=== PATIENT | male | born 1935 | race Caucasian/White ===

== ENCOUNTER 2021-12-17 13:36 | Outpatient (CLI) | payer MEDICARE, OTHER, SELFPAY ==
--- NOTE | 2021-12-17 13:46 | XR_ITS ---
WS: [id number] Right hip, AP and frog-leg views, 12/17/2021 Clinical Data: CHRONIC HIP PAIN RIGHT Comparison: None. Findings: No fractures or dislocations are seen. There is narrowing, sclerosis and cyst formation of the right hip joint.The adjacent right pelvis is unremarkable. There is a fecal impaction. The soft tissues are normal. XR/XR hip RT 2-3V wo/w pel* [id number] Impression: Severe osteoarthritis of the right hip. Tonnis classification: grade 3: large cysts in femoral head/acetabulum or joint space obliteration/severe narrowing or severe femoral head deformity vs AVN
== END 2021-12-17 13:37 | disposition home or self-care (01) ==
PROVIDERS: PCP Nurse Practitioner; Visit Provider Nurse Practitioner
DX: M16.11 Unilateral primary osteoarthritis, right hip (principal)
CPT/HCPCS: 73502

== ENCOUNTER → 2022-02-17 10:49 | Outpatient (BNVA) | payer MEDICARE, OTHER, SELFPAY | PROVIDERS: PCP Nurse Practitioner; Referring Provider Nurse Practitioner Family; Visit Provider Specialist | DX: M16.11 Unilateral primary osteoarthritis, right hip (principal); M25.551 Pain in right hip | CPT/HCPCS: 73502; 99204 ==

== ENCOUNTER 2022-04-21 09:37 | Emergency (ER) | payer MEDICARE, OTHER, SELFPAY ==
--- NOTE | 2022-04-21 09:42 | XR_ITS ---
WS: [id number] Exam: XR chest 1V portable [id number] Date/Time of Exam: 04/21/2022 9:46 AM Reason For Exam: dyspnea/cough Comparison 07/30/2019. There is mild interstitial infiltrate in the upper lobe of the right lung. Remaining lung iraheta are clear. There is cardiac enlargement unchanged. 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 A car diac pacer superimposes the left chest. The lungs are fully inflated. Mild prominence of the superior mediastinum unchanged. Moderate DJD of the left shoulder. XR/XR chest 1V portable [id number] IMPRESSION: 1. Interstitial infiltrate in the right upper lobe suspicious for pneumonia. 2. Cardiac enlargement unchanged.
[2022-04-21 09:47] VITALS: BP 134/80; PULSE 75; RESP 22; TEMP 35.7; O2SAT 98; BMI 25.8
--- NOTE | 2022-04-21 10:07 | ECG_ITS ---
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 Measurements Intervals [place] Rate: 75 P: MT: QRS: 234 QRSD: 196 T: 33 QT: 449 QTc: 502 Interpretive Statements ELECTRONIC VENTRICULAR PACEMAKER ABNORMAL RHYTHM ECG No previous ECG available for comparison Electronically Signed On 04-21-2022 16:29:42 CDT by Luis Felipe Hollingsworth M.D. [id number]
[2022-04-21 10:14] LABS: Basophils # 0.1 10^3/uL (0.0-0.1); Basophils % 0.6 %; Eosinophils # 0.3 10^3/uL (0.0-0.8); Eosinophils % 3.1 %; Hematocrit 38.6 % (42.0-52.0); Hemoglobin 12.3 g/dL (11.7-16.6); Lymphocytes # 1.5 10^3/uL (0.8-4.8); Lymphocytes % 17.2 %; Mean Corpuscular HGB Conc 31.9 g/dL (30.0-36.0); Mean Corpuscular Hemoglobin 30.3 pg (28.0-34.0); Mean Corpuscular Volume 95.1 fl (80-94); Mean Platelet Volume 10.2 fL (7.4-10.4); Monocytes # 0.8 10^3/uL (0.2-0.9); Monocytes % 9.5 %; Neutrophils # 5.91 10^3/uL (1.8-7.7); Neutrophils % 68.7 %; Nucleated Red Blood Cells % 0 %; Platelet Count 283 10^3/cmm (130-400); Red Blood Count 4.06 10^6/uL (4.1-5.3); Red Cell Distribution Width 15.5 % (12.1-15.1); White Blood Count 8.6 10^3/uL (4.0-10.0)
--- NOTE | 2022-04-21 10:26 | W.ED.SOB ---
HPI - SOB/Dyspnea General: Chief Complaint: Shortness of Breath/Dyspnea Stated Complaint: SOB Time Seen by Provider: 04/21/22 09:42 Source: patient Mode of arrival: ambulatory Limitations: no limitations History of Present Illness: HPI Narrative: 86-year-old male presents emergency room with complaint of cough and shortness of breath. 1 week ago he tested positive on a home antigen kit for COVID. He has not had any productive cough. He has a history of some congestive heart failure which is chronic. He has not noticed any increasing orthopnea. Low-grade fever diarrhea have mostly resolved his only persistent symptom is shortness of breath and cough. No anosmia. He has previously been vaccinated and had boosters. MD elicited complaint: shortness of breath and cough Pertinent past history: congestive heart failure Onset (ago): day(s) (7) Timing: constant Severity: mild Exacerbating factors: exertion and coughing Relieving factors: rest Known history of: congestive heart failure Associated symptoms: Reports cough; Deny abdominal pain, chest congestion, chest pain, diaphoresis, dizziness, extremity pain, fever(s), hemoptysis, lightheadedness, myalgias, nausea, orthopnea, palpitations, paresthesias, polydipsia, polyuria, rash, sense of impending doom, syncope or vomiting Treatment prior to arrival: none Review of Systems Const: Denies: fever(s), chills, fatigue, malaise or diaphoresis ENMT: Denies: throat pain, ear or mastoid pain, nasal discharge or nasal congestion Card: Denies: chest pain, palpitations, lightheadedness, syncope or orthopnea Resp: Reports: dyspnea, non-productive cough and wheezing; Denies: productive cough, hemoptysis or chest congestion GI: Denies: abdominal pain, nausea or vomiting : Denies: flank pain, dysuria, urinary frequency or urinary urgency Musc: Denies: extremity pain Skin/Breast: Denies: rash or pruritus Neuro: Denies: dizziness Endo: Denies: polyuria or polydipsia PFS ED PFSH: Social History Smoking and tobacco status: never smoked Second hand smoke exposure: No Smoking risk assessment/counseling performed?: No Alcohol intake: never Adopted: No Caregiver/support person: Yes Lives independently: No Household members: spouse Housing: House Marital status: Number of children: 3 Number of grandchildren: 5 Highest education level completed: High School Graduate service: No Current occupational status: retired Current occupational exposures/hazards: No Pets and animals: Yes History of recent travel: No Sexually active: Yes Current gender identity: Male Special felicia needs: No Agree to transfusion: Yes Physical Exam Const: COMMON NORMALS: no acute distress GENERAL APPEARANCE: cooperative and comfortable ORIENTATION/CONSCIOUSNESS: Yes awake HENMT: COMMON NORMALS: normocephalic and atraumatic HEAD & SCALP: normocephalic and atraumatic Eye: COMMON NORMALS: Equal, round and reactive pupils present, EOMs intact bilaterally, conjunctivae normal and no scleral icterus CONJUNCTIVA: Yes conjunctivae normal PUPIL: Yes Equal, round and reactive pupils present Neck/C-Spine: COMMON NORMALS: full ROM, no lymphadenopathy, supple and no JVD Lymph: LYMPHATIC: no lymphadenopathy noted and no lymphedema noted Resp: COMMON NORMALS: normal respiratory effort, No retractions and No use of accessory muscles AUSCULTATION: wheezes expiratory wheezes (Mild) Cardio: COMMON NORMALS: no JVD, regular rate, regular rhythm and No murmurs present (Cardio) RATE: regular rate RHYTHM: regular rhythm GI: COMMON NORMALS: Soft to palpation and No hepatosplenomegaly present AUSCULTATION: Yes normoactive bowel sounds PALPATION: Yes Soft to palpation, No Tenderness to palpation present (GI), No Guarding due to palpation present (GI) and Yes No hepatosplenomegaly present Extremity: COMMON NORMALS: normal to inspection, capillary refill normal, no clubbing, cyanosis or edema, no calf tenderness and no pedal edema Skin: COMMON NORMALS: no rashes or lesions noted GENERAL SKIN EXAM: no rashes or lesions noted Course Vital Signs: Vital signs: Vital Signs Temperature 96.3 F L 04/21/22 09:47 Pulse Rate 76 04/21/22 13:47 Respiratory Rate 16 04/21/22 13:47 Blood Pressure 142/93 04/21/22 13:47 Pulse Oximetry 96 04/21/22 13:47 Oxygen Delivery Me thod 04/21/22 12:55 MDM - SOB/Dyspnea Medical Decision Making Lung sounds clear minimal wheezing at best. He did test positive for COVID 7 days ago which with some time. Where is most likely to have symptoms although they are very mild at this point we did note an elevated troponin however the second troponin was decreased I think it is from heart strain from congestive heart failure which is chronic he does not appear to be acutely fluid overloaded at this time. We will go ahead and discharge him home on a course of dexamethasone continue to use albuterol monitor oxygen saturations at home. Recheck if there is any worsening. Discussed the patient is outside the window for pack COVID at this point. Medical Records I reviewed the patient's medical records. Lab Data I reviewed the patient's lab results. : 04/21/22 10:00 04/21/22 10:00 Labs/Radiology: Radiology Impressions Chest X-Ray 04/21/22 09:42 IMPRESSION: 1. Interstitial infiltrate in the right upper lobe suspicious for pneumonia. 2. Cardiac enlargement unchanged. Laboratory Results WBC 8.6 10^3/uL (4.0-10.0) 04/21/22 10:00 RBC 4.06 10^6/uL (4.1-5.3) L 04/21/22 10:00 Hgb 12.3 g/dL (11.7-16.6) 04/21/22 10:00 Hct 38.6 % (42.0-52.0) L 04/21/22 10:00 MCV 95.1 fl (80-94) H 04/21/22 10:00 MCH 30.3 pg (28.0-34.0) 04/21/22 10:00 MCHC 31.9 g/dL (30.0-36.0) 04/21/22 10:00 RDW 15.5 % (12.1-15.1) H 04/21/22 10:00 Plt Count 283 10^3/cmm (130-400) 04/21/22 10:00 MPV 10.2 fL (7.4-10.4) 04/21/22 10:00 Neut % (Auto) 68.7 % 04/21/22 10:00 Lymph % (Auto) 17.2 % 04/21/22 10:00 [place] % (Auto) 9.5 % 04/21/22 10:00 Eos % (Auto) 3.1 % 04/21/22 10:00 Baso % (Auto) 0.6 % 04/21/22 10:00 Neut # (Auto) 5.91 10^3/uL (1.8-7.7) 04/21/22 10:00 Lymph # (Auto) 1.5 10^3/uL (0.8-4.8) 04/21/22 10:00 [place] # (Auto) 0.8 10^3/uL (0.2-0.9) 04/21/22 10:00 Eos # (Auto) 0.3 10^3/uL (0.0-0.8) 04/21/22 10:00 Baso # (Auto) 0.1 10^3/uL (0.0-0.1) 04/21/22 10:00 Nucleated RBC % (auto) 0 % 04/21/22 10:00 Nucleated RBCs # 0.0 /100WBC 04/21/22 10:00 Sodium 135 mmol/L (136-145) L 04/21/22 10:00 Potassium 4.5 mmol/L (3.5-5.1) 04/21/22 10:00 Chloride 97 mmol/L (98-107) L 04/21/22 10:00 Carbon Dioxide 29 mmol/L (22-29) 04/21/22 10:00 Anion Gap 13.5 (5-19) 04/21/22 10:00 BUN 18 mg/dL (8-23) 04/21/22 10:00 Creatinine 1.0 mg/dL (0.7-1.2) 04/21/22 10:00 GFR Calculation Not Reportable 04/21/22 10:00 Glucose 87 mg/dL (65-115) 04/21/22 10:00 Calculated Osmolality 281 mOsm/kg (285-295) L 04/21/22 10:00 Calcium 8.7 mg/dL (8.5-10.5) 04/21/22 10:00 Total Bilirubin 1.2 mg/dL (0.15-1.2) 04/21/22 10:00 AST 24 U/L (0-40) 04/21/22 10:00 ALT 40 U/L (0-41) 04/21/22 10:00 Alkaline Phosphatase 79 IU/L (40-130) 04/21/22 10:00 Troponin T Baseline 96 ng/L (0-15) H 04/21/22 10:00 Troponin T 120 Minute 87.01 ng/L (0-15) H 04/21/22 11:59 Delta Troponin T -8.99 ABS# (0-10) L 04/21/22 11:59 NT-Pro-B Natriuret Pep 5144 pg/mL (0-450) H 04/21/22 11:59 Total Protein 6.9 g/dL (6.6-8.7) 04/21/22 10:00 Albumin 3.8 g/dL (3.5-5.2) 04/21/22 10:00 Globulin 3.1 g/dL (1.3-4.6) 04/21/22 10:00 Lipase 23 U/L (13-60) 04/21/22 10:00 Discharge Plan Discharge Patient Disposition: Home Clinical Impression: COVID-19 Condition: Stable Prescriptions: New dexamethasone 6 mg tablet 6 mg PO DAILY Qty: 7 0RF No Action warfarin 5 mg tablet See Rx Instructions .ROUTE .COMPLEX Rx Instructions: 5 mg orally TUE,TUE,,TUE AND 2.5MG ON & TUE digoxin 125 mcg (0.125 mg) tablet 125 mcg PO DAILY lovastatin 40 mg tablet 40 mg PO DAILY levothyroxine 125 mcg capsule 125 mcg PO DAILY amiodarone 200 mg tablet See Rx Instructions .ROUTE .COMPLEX Rx Instructions: 200 mg orally TUESDAY-TUESDAY omeprazole 40 mg capsule,delayed release(DR/EC) 40 mg PO DAILY tramadol 50 mg tablet 50 mg PO DAILY albuterol sulfate 2.5 mg /3 mL (0.083 %) Solution For Nebulization 2.5 mg INHALATION Q4H PRN (Reason: Shortness Of Breath) furosemide 20 mg Tablet 20 mg PO DAILY metoprolol succinate 25 mg tablet extended release 24 hr 25 mg PO DAILY Vitamin D3 25 mcg (1,000 unit) Capsule 25 mcg PO DAILY vitamin G79-abgfq acid 2,500-400 mcg Tablet,Disintegrating 1 tab PO DAILY Discharge Orders: Discharge ED (Routine); Ordered 04/21/22 Ordered By: Rahul Duran Referrals: Kenia Harris, VICE PRESIDENT OF INSTRUCTION [Primary Care Provider] - Discharge Diet: Usual diet Discharge Activity: Limit activity as instructed Activity Restrictions/Additional Instructions: Return to the ER if you have significant worsening in your breathing. Use albuterol regularly for symptoms of wheezing and shortness of breath. Coding Level of Care Code ED Probate Clerk for Alexandria Burns
[2022-04-21 10:41] LABS: Troponin(5th) Baseline 96 ng/L (0-15)
[2022-04-21 10:43] LABS: Alanine Aminotransferase 40 U/L (0-41); Albumin Level 3.8 g/dL (3.5-5.2); Alkaline Phosphatase 79 IU/L (40-130); Anion Gap 13.5 (5-19); Aspartate Amino Transferase 24 U/L (0-40); Blood Urea Nitrogen 18 mg/dL (8-23); Calcium 8.7 mg/dL (8.5-10.5); Carbon Dioxide 29 mmol/L (22-29); Chloride 97 mmol/L (98-107); Globulin 3.1 g/dL (1.3-4.6); Glucose 87 mg/dL (65-115); Lipase 23 U/L (13-60); Osmolality Calculated 281 mOsm/kg (285-295); Potassium 4.5 mmol/L (3.5-5.1); Sodium 135 mmol/L (136-145); Total Bilirubin 1.2 mg/dL (0.15-1.2); Total Protein 6.9 g/dL (6.6-8.7)
[2022-04-21 11:23] VITALS: BP 132/75; PULSE 78; RESP 18; O2SAT 96
--- NOTE | 2022-04-21 11:43 | ECG_ITS ---
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 Measurements Intervals [place] Rate: 75 P: SD: QRS: 261 QRSD: 200 T: 75 QT: 456 QTc: 510 Interpretive Statements ELECTRONIC VENTRICULAR PACEMAKER ABNORMAL RHYTHM ECG Compared to ECG 04/21/2022 10:07:40 No significant changes Electronically Signed On 04-21-2022 16:34:05 CDT by Luis Felipe Hollingsworth M.D. [id number]
[2022-04-21 12:38] LABS: Troponin 5 2HR 87.01 ng/L (0-15)
[2022-04-21 12:46] LABS: NT Pro B Type Natriuretic Pept 5144 pg/mL (0-450)
[2022-04-21 12:55] VITALS: PULSE 80; RESP 18; O2SAT 94
[2022-04-21 13:34] VITALS: O2SAT 94; O2SAT 97
[2022-04-21 13:47] VITALS: BP 142/93; PULSE 76; RESP 16; O2SAT 96
== END 2022-04-21 13:48 | disposition home or self-care (01) ==
PROVIDERS: Emergency Provider Family Medicine; PCP Nurse Practitioner
DX: U07.1 COVID-19 (principal); Z79.01 Long term (current) use of anticoagulants
CPT/HCPCS: 36415; 71045; 80053; 83690; 83880; 84484; 85025; 93005; 99285

== ENCOUNTER → 2022-05-03 12:51 | Outpatient (BNVA) | payer MEDICARE, OTHER, SELFPAY | PROVIDERS: PCP Nurse Practitioner; Visit Provider Specialist | DX: M16.11 Unilateral primary osteoarthritis, right hip (principal); U07.1 COVID-19 | CPT/HCPCS: 73502; 99214 ==

== ENCOUNTER 2022-05-05 09:57 | Emergency (ER) | payer MEDICARE, OTHER, SELFPAY ==
[2022-05-05 10:26] VITALS: BP 125/74; PULSE 80; RESP 16; TEMP 36.8; O2SAT 98; BMI 25.8
--- NOTE | 2022-05-05 10:40 | ED_ITS ---
HPI - General Adult General: Chief complaint: General Medical Stated complaint: Abnormal Labs Time Seen by Provider: 05/05/22 10:38 History of Present Illness: Patient is an 86-year-old male who comes to the ED to have his INR checked. Patient says he was at his primary care clinic y esterday and had his INR checked and they told him it was a little bit off but did not tell him his INR value. He is unsure of what his INR level as it would like to get it checked. Associated symptoms: Deny chest pain, dyspnea, headache(s), nausea, rash, palpit ations or vomiting Review of Systems Const: Denies: fever(s), chills or fatigue Eyes: Denies: change in vision or eye discomfort ENMT: Denies: throat pain, odynophagia, nasal discharge or nasal congestion Card: Denies: chest pain, palpitations, edema, swelling of feet/ankles, dyspnea on exertion or orthopnea Resp: Denies: dyspnea, productive cough or non-productive cough GI: Denies: abdominal pain, nausea, vomiting, diarrhea, constipation or hematochezia : Denies: flank pain, difficulty urinating, dysuria or hematuria Musc: Denies: neck pain, back pain or extremity swelling Skin/Breast: Denies: rash or new lesions Neuro: Denies: headache(s), numbness in extremities or weakness in extremities PFS ED PFSH: Medical History No pertinent family history Pacemaker Social History Smoking and tobacco status: never smoked Second hand smoke exposure: No Smoking risk assessment/counseling performed?: No Alcohol intake: never Adopted: No Caregiver/support person: Yes Lives independently: No Household members: spouse Housing: House Marital status: Number of children: 3 Number of grandchildren: 5 Highest education level completed: High School Graduate service: No Current occupational status: retired Current occupational exposures/hazards: No Pets and animals: Yes History of recent travel: No Sexually active: Yes Current gender identity: Male Special felicia needs: No Agree to transfusion: Yes Physical Exam Const: COMMON NORMALS: no acute distress and patient oriented x3 GENERAL AP PEARANCE: cooperative HENMT: COMMON NORMALS: normocephalic HEAD & SCALP: normocephalic MOUTH: Normal oral and palatal mucosa present THROAT: posterior oropharynx normal and uvula midline Neck/C-Spine: COMMON NORMALS: supple GENERAL: Yes normal visual inspection Resp: COMMON NORMALS: normal respiratory effort, No retractions, No use of accessory muscles and clear to auscultation bilaterally AUSCULTATION: clear to auscultation bilaterally Cardio: COMMON NORMALS: regular rate, regular rhythm, S1 normal heart sound present, S2 normal heart sound present, No gallops present (Cardio), No clicks present (Cardio), No murmurs present (Cardio) and Peripheral pulses 2+ throughout RATE: regular rate RHYTHM: regular rhythm HEART SOUNDS: S1 normal heart sound present and S2 normal heart sound present PERIPHERAL PULSES: Peripheral pulses 2+ throughout GI: COMMON NORMALS: Normal to inspection, nondistended, normoactive bowel sounds present, Soft to palpation, non-tender and no masses PALPATION: Yes Soft to palpation : COMMON NORMALS: Yes no CVA tenderness BLADDER/KIDNEY EXAM: Yes no CVA tenderness Back/Pelvis: COMMON NORMALS: no CVA tenderness Extremity: COMMON NORMALS: normal to inspection Neuro: COMMON NORMALS: patient oriented x3 GAIT: Yes Normal gait present Skin: GENERAL SKIN EXAM: dry skin Course Vital Signs: Vital signs: Vital Signs Temperature 98.3 F 05/05/22 10:26 Pulse Rate 80 05/05/22 10:26 Respiratory Rate 16 05/05/22 10:26 Blood Pressure 125/74 05/05/22 10:26 Pulse Oximetry 98 05/05/22 10:26 Oxygen Delivery Me thod 05/05/22 10:26 [facility] - General Adult Medical Decision Making Patient is an 86-year-old male comes to the ED to have his INR level checked. He denies any other symptoms. Vitals are stable and exam was benign. CBC was unremarkable patient's INR level was 6.39. We had contacted his clinching machine operator who prescribes his warfarin and faxed over the lab results. He has an appointment with his clinching machine operator tomorrow. Patient was mad about waiting and wanted to leave. I told him I was waiting on his clinching machine operator to let me know what he wants to do with patient. Patient insisted on signing out AMA and says he will see his clinching machine operator tomorrow. I explained to patient the risk of him signing out AMA. He refused any vitamin K medication. Patient signed AMA form and was discharged home. I told him to hold his warfarin for today and to not take another dose of warfarin till he sees his clinching machine operator tomorrow. the clinching machine operator eventually called [facility] and said patient can discharge home and that he needs to hold his warfarin dose until he sees patient tomorrow. Lab Data I reviewed the patient's lab results. : 05/05/22 10:54 Laboratory Results WBC 8.0 10^3/uL (4.0-10.0) 05/05/22 10:54 RBC 4.17 10^6/uL (4.1-5.3) 05/05/22 10:54 Hgb 12.7 g/dL (11.7-16.6) 05/05/22 10:54 Hct 39.4 % (42.0-52.0) L 05/05/22 10:54 MCV 94.5 fl (80-94) H 05/05/22 10:54 MCH 30.5 pg (28.0-34.0) 05/05/22 10:54 MCHC 32.2 g/dL (30.0-36.0) 05/05/22 10:54 RDW 15.8 % (12.1-15.1) H 05/05/22 10:54 Plt Count 197 10^3/cmm (130-400) 05/05/22 10:54 MPV 10.3 fL (7.4-10.4) 05/05/22 10:54 Neut % (Auto) 68.6 % 05/05/22 10:54 Lymph % (Auto) 20.3 % 05/05/22 10:54 [place] % (Auto) 9.3 % 05/05/22 10:54 Eos % (Auto) 1.3 % 05/05/22 10:54 Baso % (Auto) 0.1 % 05/05/22 10:54 Neut # (Auto) 5.47 10^3/uL (1.8-7.7) 05/05/22 10:54 Lymph # (Auto) 1.6 10^3/uL (0.8-4.8) 05/05/22 10:54 [place] # (Auto) 0.7 10^3/uL (0.2-0.9) 05/05/22 10:54 Eos # (Auto) 0.1 10^3/uL (0.0-0.8) 05/05/22 10:54 Baso # (Auto) 0.0 10^3/uL (0.0-0.1) 05/05/22 10:54 Nucleated RBC % (auto) 0 % 05/05/22 10:54 Nucleated RBCs # 0.0 /100WBC 05/05/22 10:54 PT 56.20 SECONDS (12.1-14.9) H 05/05/22 10:54 INR 6.39 (0.8-1.2) H* 05/05/22 10:54 Discharge Plan Discharge Patient Disposition: Left Against Medical Advice Clinical Impression: Elevated INR Condition: Stable Prescriptions: No Action warfarin 5 mg tablet See Rx Instructions .ROUTE .COMPLEX Rx Instructions: 5 mg orally SUN,TUE,,TUE AND 2.5MG ON & TUE digoxin 125 mcg (0.125 mg) tablet 125 mcg PO DAILY lovastatin 40 mg tablet 40 mg PO DAILY levothyroxine 125 mcg capsule 125 mcg PO DAILY amiodarone 200 mg tablet See Rx Instructions .ROUTE .COMPLEX Rx Instructions: 200 mg orally TUESDAY-TUESDAY omeprazole 40 mg capsule,delayed release(DR/EC) 40 mg PO DAILY tramadol 50 mg tablet 50 mg PO DAILY albuterol sulfate 2.5 mg /3 mL (0.083 %) Solution For Nebulization 2.5 mg INHALATION Q4H PRN (Reason: Shortness Of Breath) furosemide 20 mg Tablet 20 mg PO DAILY metoprolol succinate 25 mg tablet extended release 24 hr 25 mg PO DAILY Vitamin D3 25 mcg (1,000 unit) Capsule 25 mcg PO DAILY vitamin L91-serlh acid 2,500-400 mcg Tablet,Disintegrating 1 tab PO DAILY dexamethasone 6 mg tablet 6 mg PO DAILY Qty: 7 0RF Referrals: Kenia Harris APN [Primary Care Provider] - Discharge Diet: Regular Discharge Activity: Increase activity as tolerated Patient Instructions: Elevated INR (ED) Activity Restrictions/Additional Instructions: Follow-up with your doctor at your scheduled appointment tomorrow. Do not take any more warfarin today and do not continue taking warfarin until you've been advised and seen by your doctor. take medications as prescribed. Return to the ER or your medical provider if condition worsens. Please read and understand discharge instructions. Thank you for choosing [facility] for your healthcare needs today. Please realize this is an emergency room and that we are providing you with a medical screening exam and this may not be complete and all inclusive of all the testing and or work up that you may need to determine your ailment or severity of your illness. It is very important that you follow up as instructed or that you return to the Emergency Department should you have concerns or if your condition changes or worsens in any way. Coding Level of Care Code ED Milk Pasteurizer for Alexandria Burns Exam Comprehensive
[2022-05-05 11:03] LABS: Basophils % 0.1 %; Eosinophils # 0.1 10^3/uL (0.0-0.8); Eosinophils % 1.3 %; Hematocrit 39.4 % (42.0-52.0); Hemoglobin 12.7 g/dL (11.7-16.6); Lymphocytes # 1.6 10^3/uL (0.8-4.8); Lymphocytes % 20.3 %; Mean Corpuscular HGB Conc 32.2 g/dL (30.0-36.0); Mean Corpuscular Hemoglobin 30.5 pg (28.0-34.0); Mean Corpuscular Volume 94.5 fl (80-94); Mean Platelet Volume 10.3 fL (7.4-10.4); Monocytes # 0.7 10^3/uL (0.2-0.9); Monocytes % 9.3 %; Neutrophils # 5.47 10^3/uL (1.8-7.7); Neutrophils % 68.6 %; Nucleated Red Blood Cells % 0 %; Platelet Count 197 10^3/cmm (130-400); Red Blood Count 4.17 10^6/uL (4.1-5.3); Red Cell Distribution Width 15.8 % (12.1-15.1)
[2022-05-05 11:43] LABS: INR 6.39 (0.8-1.2)
== END 2022-05-05 12:49 | disposition left against medical advice (07) ==
PROVIDERS: Emergency Provider Physician Assistant; PCP Nurse Practitioner
DX: R79.89 Other specified abnormal findings of blood chemistry (principal); Z79.01 Long term (current) use of anticoagulants; Z95.0 Presence of cardiac pacemaker
CPT/HCPCS: 85025; 85610; 99283

== ENCOUNTER 2022-08-26 09:18 | Inpatient (IN) | payer MEDICARE, OTHER, SELFPAY ==
[2022-08-26] VITALS (18 sets, daily range): BP systolic 104–151; BP diastolic 59–78; PULSE 70–92; RESP 18–40; TEMP 36.8–37.2; O2SAT 94–100; BMI 25.8
--- NOTE | 2022-08-26 10:09 | XRR_ITS ---
PROCEDURE INFORMATION: Exam: XR Chest Exam date and time: 08/26/2022 10:22 AM Age: 86 years old Clinical indication: Cough and dyspnea. TECHNIQUE: Imaging protocol: Radiologic exam of the chest. Views: 1 view. COMPARISON: CR XR chest 1V portable [id number] 04/21/2022 9:51 AM FINDINGS: Tubes, catheters and devices: A left subclavian AICD is noted. Lungs: There is mild peribronchial wall thickening. Pleural spaces: No pleural effusion. No pneumothorax. 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 The heart is prominently enlarged; similar to prior. No gross evidence of pneumomediastinum. Bones/joints: No gross fracture. Soft tissues: There are hazy peripheral opacities in the mid and lower right chest. Patchy hazy opacity at the left base. XR/XR chest 1V portable [id number] IMPRESSION: 1. Hazy peripheral opacities in the mid and lower right chest. Patchy hazy opacity at the left base. Consider CT to better characterize. 2. There is mild peribronchial wall thickening; query viral infection/bronchitis, chronic bronchitis and/or asthma. 3. The heart is prominently enlarged; similar to prior.
--- NOTE | 2022-08-26 10:11 | ECG_ITS ---
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 Measurements Intervals [place] Rate: 75 P: 0 [place]: 0 QRS: 265 QRSD: 204 T: -19 QT: 464 QTc: 518 Interpretive Statements ELECTRONIC VENTRICULAR PACEMAKER ABNORMAL RHYTHM ECG Compared to ECG 04/21/2022 12:22:43 No significant changes Electronically Signed On 08-26-2022 19:00:45 LEAD ATG DEVELOPER by Radha Rosario M.D. [id number]
--- NOTE | 2022-08-26 10:20 | ED_ITS ---
HPI - SOB/Dyspnea General: Chief Complaint: Shortness of Breath/Dyspnea Stated Complaint: SOB Time Seen by Provider: 08/26/22 10:08 Source: patient Mode of arrival: ambulatory History of Present Illness: HPI Narrative: [id number] male presents emergency room complaining of shortness of breath for the last 2 to 3 weeks progressively worsening. Yesterday he states he spiked a fever is not had a productive cough. He has not been seen for this during the time. He does have a history of a prosthetic mitral valve and is on Coumadin. No chest pain he is usually not on oxygen at home but is requiring 2 to 3 L by nasal cannula in the emergency room he has a nonproductive cough. Known history of COPD and CHF. He is a former smoker. MD elicited complaint: shortness of breath and cough Pertinent past history: COPD Onset (ago): week(s) (2-3) Timing: progressively worsening Severity: moderate Exacerbating factors: lying flat and exertion Associated symptoms: Reports chest congestion and cough; Deny abdominal pain, chest pain, diaphoresis, dizziness, extremity pain, fever(s), hemoptysis, lightheadedness, myalgias, nausea, orthopnea, palpitations, paresthesias, polydipsia, polyuria, rash, sense of impending doom, syncope or vomiting Treatment prior to arrival: none Review of Systems Const: Denies: fever(s) or diaphoresis Card: Denies: chest pain, palpitations, lightheadedness, syncope or orthopnea Resp: Reports: chest congestion; Denies: hemoptysis GI: Denies: abdominal pain, nausea or vomiting Musc: Denies: extremity pain Neuro: Denies: dizziness Endo: Denies: polyuria or polydipsia PFS ED PFSH: Medical History (Updated 08/31/22 @ 08:28 by Rahul Duran DO) Community acquired pneumonia COPD (chronic obstructive pulmonary disease) Heart failure High cholesterol Hypothyroidism No pertinent family history Pacemaker Pacemaker Surgical History (Updated 08/30/22 @ 00:00 by ) History of mitral valve prosthesis Social History Smoking and tobacco status: never smoked Second hand smoke exposure: No Smoking risk assessment/counseling performed?: No Alcohol intake: never Adopted: No Caregiver/support person: Yes Lives independently: No Household members: spouse Housing: House Marital status: Number of children: 3 Number of grandchildren: 5 Highest education level completed: High School Graduate service: No Current occupational status: retired Current occupational exposures/hazards: No Pets and animals: Yes History of recent travel: No Sexually active: Yes Current gender identity: Male Special felicia needs: No Agree to transfusion: Yes Physical Exam Const: COMMON NORMALS: no acute distress GENERAL APPEARANCE: cooperative and comfortable ORIENTATION/CONSCIOUSNESS: Yes awake, Yes oriented to person, Yes oriented to place and Yes oriented to time HENMT: COMMON NORMALS: normocephalic, atraumatic and hearing grossly normal bilaterally HEAD & SCALP: normocephalic and atraumatic Resp: COMMON NORMALS: normal respiratory effort, No retractions, No use of accessory muscles and clear to auscultation bilaterally AUSCULTATION: clear to auscultation bilaterally Cardio: COMMON NORMALS: regular rate, regular rhythm and No murmurs present (Cardio) RATE: regular rate RHYTHM: regular rhythm GI: COMMON NORMALS: Soft to palpation and No hepatosplenomegaly present AUSCULTATION: Yes normoactive bowel sounds PALPATION: Yes Soft to palpation, No Tenderness to palpation present (GI), No Guarding due to palpation present (GI) and Yes No hepatosplenomegaly present Extremity: COMMON NORMALS: normal to inspection, capillary refill normal, no clubbing, cyanosis or edema, no calf tenderness and no pedal edema Neuro: SENSORIUM/ORIENTATION: Yes oriented to person, Yes oriented to place and Yes oriented to time Skin: COMMON NORMALS: no rashes or lesions noted GENERAL SKIN EXAM: no rashes or lesions noted Course Vital Signs: Vital signs: Vital Signs Temperature 98.1 F 08/29/22 11:47 Pulse Rate 75 08/29/22 11:47 Respiratory Rate 18 08/29/22 11:47 Blood Pressure 114/70 08/29/22 11:47 Pulse Oximetry 98 08/29/22 11:47 Oxygen Delivery Me thod 08/29/22 08:16 Oxygen Flow Rate 2 08/29/22 10:08 MDM - SOB/Dyspnea Medical Decision Making Pneumonia right mid and right lower lung iraheta. Moderate exacerbation congestive heart failure. Discussed with hospitalist admit antibiotic started aggressive pulmonary toilet Medical Records I reviewed the patient's medical records. Lab Data I reviewed the patient's lab results. 08/29/22 04:39 08/29/22 04:39 Labs/Radiology: Radiology Impressions Chest X-Ray 08/26/22 10:09 IMPRESSION: 1. Hazy peripheral opacities in the mid and lower right chest. Patchy hazy opacity at the left base. Consider CT to better characterize. 2. There is mild peribronchial wall thickening; query viral infection/bronchitis, chronic bronchitis and/or asthma. 3. The heart is prominently enlarged; similar to prior. Laboratory Results WBC 17.1 10^3/uL (4.0-10.0) H 08/26/22 10:43 RBC 4.27 10^6/uL (4.1-5.3) 08/26/22 10:43 Hgb 13.3 g/dL (11.7-16.6) 08/26/22 10:43 Hct 40.6 % (42.0-52.0) L 08/26/22 10:43 MCV 95.1 fl (80-94) H 08/26/22 10:43 MCH 31.1 pg (28.0-34.0) 08/26/22 10:43 MCHC 32.8 g/dL (30.0-36.0) 08/26/22 10:43 RDW 14.9 % (12.1-15.1) 08/26/22 10:43 Plt Count 184 10^3/cmm (130-400) 08/26/22 10:43 MPV 10.8 fL (7.4-10.4) H 08/26/22 10:43 Neut % (Auto) 83.6 % 08/26/22 10:43 Lymph % (Auto) 4.9 % 08/26/22 10:43 Mcpherson % (Auto) 10.7 % 08/26/22 10:43 Eos % (Auto) 0.0 % 08/26/22 10:43 Baso % (Auto) 0.2 % 08/26/22 10:43 Neut # (Auto) 14.24 10^3/uL (1.8-7.7) H 08/26/22 10:43 Lymph # (Auto) 0.8 10^3/uL (0.8-4.8) 08/26/22 10:43 Mcpherson # (Auto) 1.8 10^3/uL (0.2-0.9) H 08/26/22 10:43 Eos # (Auto) 0.0 10^3/uL (0.0-0.8) 08/26/22 10:43 Baso # (Auto) 0.0 10^3/uL (0.0-0.1) 08/26/22 10:43 Nucleated RBC % (auto) 0 % 08/26/22 10:43 Nucleated RBCs # 0.0 /100WBC 08/26/22 10:43 PT 20.20 SECONDS (12.1-14.9) H 08/26/22 10:43 INR 1.69 (0.8-1.2) H 08/26/22 10:43 Specimen Type Arterial 08/26/22 13:09 Sample Site Radial, left 08/26/22 13:09 ABG pH 7.49 (7.35-7.45) H 08/26/22 13:09 ABG pCO2 28.9 mmHg (35-45) L 08/26/22 13:09 ABG pO2 69.1 mmHg (80.0-100.0) L 08/26/22 13:09 ABG HCO3 21.9 mmol/L (22-26) L 08/26/22 13:09 ABG O2 Saturation 96.5 08/26/22 13:09 ABG Base Excess -0.4 mmol/L (-2.0-2.0) 08/26/22 13:09 Lazaro Test Pos 08/26/22 13:09 A-a O2 Gradient 16.2 mmHg (5-10) H 08/26/22 13:09 Hematocrit 40.0 % (42-52) L 08/26/22 13:09 Hgb O2 Saturation 94.5 % (95-100) L 08/26/22 13:09 Carboxyhemoglobin 1.6 %THgb (0.4-20.1) 08/26/22 13:09 Methemoglobin 0.4 % (0.4-1.5) 08/26/22 13:09 Total Hemoglobin 13.1 g/dL (14-18) L 08/26/22 13:09 Sodium 135.0 mmol/L (131-143) 08/26/22 13:09 Potassium 3.4 mmol/L (3.5-5.0) L 08/26/22 13:09 Glucose 158.0 mg/dL (70-115) H 08/26/22 13:09 Ionized Calcium 1.1 mmol/L (1.1-1.4) 08/26/22 13:09 O2 Delivery Device Nc 08/26/22 13:09 O2 Liters/Min 3.0 % 08/26/22 13:09 FiO2 32.0 % 08/26/22 13:09 Generation Engineer ID glc 08/26/22 13:09 Sodium 134 mmol/L (136-145) L 08/26/22 10:43 Potassium 4.1 mmol/L (3.5-5.1) 08/26/22 10:43 Chloride 98 mmol/L (98-107) 08/26/22 10:43 Carbon Dioxide 24 mmol/L (22-29) 08/26/22 10:43 Anion Gap 16.1 (5-19) 08/26/22 10:43 BUN 19 mg/dL (8-23) 08/26/22 10:43 Creatinine 1.0 mg/dL (0.7-1.2) 08/26/22 10:43 GFR Calculation Not Reportable 08/26/22 10:43 Glucose 109 mg/dL (65-115) 08/26/22 10:43 Calculated Osmolality 281 mOsm/kg (285-295) L 08/26/22 10:43 Calcium 9.1 mg/dL (8.5-10.5) 08/26/22 10:43 Total Bilirubin 3.1 mg/dL (0.15-1.2) H 08/26/22 10:43 AST 15 U/L (0-40) 08/26/22 10:43 ALT 13 U/L (0-41) 08/26/22 10:43 Alkaline Phosphatase 93 U/L (40-130) 08/26/22 10:43 Troponin T Baseline 74 ng/L (0-15) H 08/26/22 10:43 Troponin T 120 Minute 68.89 ng/L (0-15) H 08/26/22 13:10 Delta Troponin T -5.11 ABS# (0-10) L 08/26/22 13:10 NT-Pro-B Natriuret Pep 6771 pg/mL (0-450) H 08/26/22 10:43 Total Protein 7.6 g/dL (6.6-8.7) 08/26/22 10:43 Albumin 4.0 g/dL (3.5-5.2) 08/26/22 10:43 Globulin 3.6 g/dL (1.3-4.6) 08/26/22 10:43 Nasal Influ A H1 2009 PCR Not detected (NOT DETECT) 08/26/22 05:45 Adenovirus (PCR) Not detected (NOT DETECT) 08/26/22 05:45 C. pneumoniae DNA (PCR) Not detected (NOT DETECT) 08/26/22 05:45 Coronavirus 229E (PCR) Not detected (NOT DETECT) 08/26/22 05:45 Human Metapneumovir PCR Not detected (NOT DETECT) 08/26/22 05:45 Influenza A (H1) PCR Not detected (NOT DETECT) 08/26/22 05:45 Influenza A (H3) PCR Not detected (NOT DETECT) 08/26/22 05:45 Influenza Type A (PCR) Not detected (NOT DETECT) 08/26/22 05:45 Influenza Type B (PCR) Not detected (NOT DETECT) 08/26/22 05:45 M. pneumoniae (PCR) Not detected (NOT DETECT) 08/26/22 05:45 Parainfluenza 1 (PCR) Not detected (NOT DETECT) 08/26/22 05:45 Parainfluenza 2 (PCR) Not detected (NOT DETECT) 08/26/22 05:45 Parainfluenza 3 (PCR) Not detected (NOT DETECT) 08/26/22 05:45 Parainfluenza 4 (PCR) Not detected (NOT DETECT) 08/26/22 05:45 RSV Type A (PCR) Not detected (NOT DETECT) 08/26/22 05:45 RSV Type B (PCR) Not detected (NOT DETECT) 08/26/22 05:45 Entero/Rhino (PCR) Not detected (NOT DETECT) 08/26/22 05:45 SARS-CoV-2 (PCR) Not detected (NOT DETECT) 08/26/22 05:45 Discharge Plan Discharge Patient Disposition: Admitted As Inpatient Admit Provider: Elie Harris Clinical Impression: Community acquired pneumonia, Acute exacerbation of chronic obstructive airways disease Condition: Stable Coding Level of Care Code ED 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
--- NOTE | 2022-08-26 10:48 | PC.NURSE ---
PT PLACED ON CONTINUOUS SPO2, NIBP, AND CM.
[2022-08-26 10:49] LABS: Basophils % 0.2 %; Hematocrit 40.6 % (42.0-52.0); Hemoglobin 13.3 g/dL (11.7-16.6); Lymphocytes # 0.8 10^3/uL (0.8-4.8); Lymphocytes % 4.9 %; Mean Corpuscular HGB Conc 32.8 g/dL (30.0-36.0); Mean Corpuscular Hemoglobin 31.1 pg (28.0-34.0); Mean Corpuscular Volume 95.1 fl (80-94); Mean Platelet Volume 10.8 fL (7.4-10.4); Monocytes # 1.8 10^3/uL (0.2-0.9); Monocytes % 10.7 %; Neutrophils # 14.24 10^3/uL (1.8-7.7); Neutrophils % 83.6 %; Nucleated Red Blood Cells % 0 %; Platelet Count 184 10^3/cmm (130-400); Red Blood Count 4.27 10^6/uL (4.1-5.3); Red Cell Distribution Width 14.9 % (12.1-15.1); White Blood Count 17.1 10^3/uL (4.0-10.0)
[2022-08-26] MEDS: FUROsemide 10 mg/mL SDV 10mL 60 MG IVP (10:49)
[2022-08-26 11:06] LABS: INR 1.69 (0.8-1.2)
[2022-08-26 11:17] LABS: Troponin(5th) Baseline 74 ng/L (0-15)
--- NOTE | 2022-08-26 11:18 | PC.PHAR ---
PT STATES HE TAKES CARE OF HIS OWN MEDICATIONS-PT STATES HE TAKES WARFARIN 5MG ON MON AND FRI AND TAKES 2.5MG ALL OTHER DAYS RX LAST FILLED 08/09/22 90D/S FOR 5MG DAILY OR DIRECTED-PT HAD A MED LIST THAT WAS OLD AND STATES HE IS UNSURE OF ALL THE NAMES AND MG OF WHAT HE TAKES-MEDICATIONS ENTERED ARE WHAT [facility] STATES THEY HAVE FILLED RECENTLY FOR THE PT-THE MED LIST PT BROUGHT IN HAS LISINOPRIL 2.5MG BID AND SPIRONOLACTONE 25MG QAM [facility] STATES NOT A RECENTLY FILLED MED AND PT STATES HE DOESNT KNOW-
[2022-08-26 11:26] LABS: Alanine Aminotransferase 13 U/L (0-41); Alkaline Phosphatase 93 U/L (40-130); Anion Gap 16.1 (5-19); Aspartate Amino Transferase 15 U/L (0-40); Blood Urea Nitrogen 19 mg/dL (8-23); Calcium 9.1 mg/dL (8.5-10.5); Carbon Dioxide 24 mmol/L (22-29); Chloride 98 mmol/L (98-107); Globulin 3.6 g/dL (1.3-4.6); Glucose 109 mg/dL (65-115); NT Pro B Type Natriuretic Pept 6771 pg/mL (0-450); Osmolality Calculated 281 mOsm/kg (285-295); Potassium 4.1 mmol/L (3.5-5.1); Sodium 134 mmol/L (136-145); Total Bilirubin 3.1 mg/dL (0.15-1.2); Total Protein 7.6 g/dL (6.6-8.7)
[2022-08-26] MEDS: levofloxacin-dextrose 5 % 750 MG/150 ML PREMIX 100 MG IV (12:58)
--- NOTE | 2022-08-26 13:05 | ECG_ITS ---
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 Measurements Intervals [place] Rate: 75 P: 0 IA: 0 QRS: 264 QRSD: 205 T: 0 QT: 500 QTc: 559 Interpretive Statements ELECTRONIC VENTRICULAR PACEMAKER ABNORMAL RHYTHM ECG Compared to ECG 08/26/2022 10:11:06 No significant changes Electronically Signed On 08-26-2022 19:06:13 CORRECTIONAL SECURITY OFFICER by Radha Rosario M.D. [id number]
[2022-08-26 13:19] LABS: ABG PCO2 28.9 mmHg (35-45); ABG PH Result 7.49 (7.35-7.45); Alveolar-Arterial Oxygen Gradi 16.2 mmHg (5-10); Base Excess ABG -0.4 mmol/L (-2.0-2.0); Blood Gas Allen Test Pos; Blood Gas Operator Identificat glc; Blood Gas Sample Site Radial, left; Blood Gas Sample Type Arterial; Carboxyhemoglobin 1.6 %THgb (0.4-20.1); HCO3 ABG 21.9 mmol/L (22-26); HGB O2 Sat 94.5 % (95-100); Ionized Calcium Level - ABG 1.1 mmol/L (1.1-1.4); Methemoglobin 0.4 % (0.4-1.5); Oxygen Device NC; Oxygen Saturation ABG 96.5; PO2 ABG 69.1 mmHg (80.0-100.0); Potassium Level - ABG 3.4 mmol/L (3.5-5.0); Total Hemoglobin 13.1 g/dL (14-18)
--- NOTE | 2022-08-26 13:26 | PM.HP ---
Providers/Chief Complaint Primary Care Provider: Sun Cox MD Chief Complaint: SOB History of Present Illness Memo Salazar is a 86 year old male with past medical history of congestive heart failure, AICD in place, hypothyroidism, COPD not on home oxygen, status post mitral valve replacement, came in today with chief complaint of worsening shortness of breath going on for the last 3-week, accompanied with whitish sputum, Chest congestion, occasional intermittent chest pain, orthopnea, subjective fever. According to the patient SOB have been worsening in the last few days. Upon arrival in the ER he was worked up for above-mentioned complaint: Pertinent imaging studies X-ray chest: Hazy peripheral opacities in the mid and lower right chest. Patchy hazy opacity at the left base.There is mild peribronchial wall thickening; query viral infection/bronchitis, chronic bronchitis and/or asthma. The heart is prominently enlarged; similar to prior. EKG: Paced rhythm Pertinent labs: WBC 17.1, H&H 13/ 40 , PLT : 184 . Serum sodium 134, serum potassium 4.1, BUN serum creatinine:19/1 Troponin: 74-68, proBNP: 6771 ABG: pH 7.49, PCO2 28, PO2 69, FiO2 32% Review of Systems General: Reports: 10 or more systems reviewed and unremarkable except in HPI and below Const: Reports: fever(s); Denies: chills, body aches, change in appetite or diaphoresis Card: Reports: dyspnea on exertion and orthopnea; Denies: palpitations, edema, swelling of feet/ankles or leg pain with exertion Resp: Reports: dyspnea and productive cough; Denies: wheezing or pain on inspiration GI: Denies: abdominal pain, nausea, vomiting, diarrhea or constipation : Denies: flank pain or difficulty urinating Musc: Denies: back pain, extremity pain or extremity swelling Neuro: Denies: headache(s), difficulty walking or confusion Medications/Allergies Home Medications Medication Instructions Recorded Confirmed Last Taken Type amiodarone 200 mg tablet See Rx Instructions .Route .COMPLEX 02/17/22 08/26/22 04/21/22 History digoxin 125 mcg (0.125 mg) tablet 125 mcg PO DAILY 02/17/22 08/26/22 04/21/22 History lovastatin 40 mg tablet 40 mg PO DAILY 02/17/22 08/26/22 04/21/22 History omeprazole 40 mg capsule,delayed 40 mg PO DAILY 02/17/22 08/26/22 04/21/22 History release tramadol 50 mg tablet 50 mg PO QAM 02/17/22 08/26/22 Unknown History warfarin 5 mg tablet See Rx Instructions .Route .COMPLEX 02/17/22 08/26/22 04/21/22 History albuterol sulfate 2.5 mg/3 mL 2.5 mg inhalation Q4H PRN 04/21/22 08/26/22 Unknown History (0.083 %) solution for nebulization Shortness Of Breath furosemide 20 mg tablet 20 mg PO QAM 04/21/22 08/26/22 04/21/22 History metoprolol succinate 25 mg 12.5 mg PO DAILY 04/21/22 08/26/22 04/21/22 History tablet,extended release 24 hr acetaminophen 500 mg tablet 500 mg PO QAM 08/26/22 08/26/22 Unknown History albuterol sulfate 90 mcg/actuation 2 puff inhalation QID PRN 08/26/22 08/26/22 Unknown History aerosol inhaler Shortness Of Breath levothyroxine 100 mcg tablet 100 mcg PO DAILY 08/26/22 08/26/22 Unknown History magnesium 250 mg tablet 250 mg PO DAILY 08/26/22 08/26/22 Unknown History Allergies Allergy/AdvReac Type Severity Reaction Status Date / Time No Known Allergies Allergy Verified 05/03/22 13:10 PFSH Acute PFSH: Medical History (Updated 08/26/22 @ 14:29 by Elie Harris MD) COPD (chronic obstructive pulmonary disease) High cholesterol Hypothyroidism No pertinent family history Pacemaker Pacemaker Surgical History (Updated 08/26/22 @ 10:23 by Rahul Duran DO) History of mitral valve prosthesis Social History Smoking and tobacco status: never smoked Second hand smoke exposure: No Smoking risk assessment/counseling performed?: No Alcohol intake: never Adopted: No Caregiver/support person: Yes Lives independently: No Household members: spouse Housing: House Marital status: Number of children: 3 Number of grandchildren: 5 Highest education level completed: High School Graduate service: No Current occupational status: retired Current occupational exposures/hazards: No Pets and animals: Yes History of recent travel: No Sexually active: Yes Current gender identity: Male Special felicia needs: No Agree to transfusion: Yes Vitals/I&O/Wt Last Vital Signs Temp 98.9 F 08/26/22 09:57 Pulse 75 08/26/22 12:45 Resp 40 H 08/26/22 12:45 BP 141/78 08/26/22 11:04 Pulse Ox 97 08/26/22 12:30 O2 Del Method 08/26/22 09:57 Weight last 48 hrs Weight 77.111 kg Physical Exam Const: COMMON NORMALS: patient oriented x3 Resp: EFFORT & INSPECTION: Yes symmetric chest movement AUSCULTATION: clear to auscultation bilaterally OTHER: Bilateral wheezing present in both the lungs iraheta as well as bilateral rhonchi. Cardio: COMMON NORMALS: regular rate, regular rhythm, S1 normal heart sound present, S2 normal heart sound present, No gallops present (Cardio), No murmurs present (Cardio), No rub (Cardio) and Peripheral pulses 2+ throughout RATE: regular rate RHYTHM: regular rhythm HEART SOUNDS: S1 normal heart sound present and S2 normal heart sound present PERIPHERAL PULSES: Peripheral pulses 2+ throughout GI: COMMON NORMALS: Normal to inspection, nondistended, normoactive bowel sounds present, Soft to palpation, non-tender, No hepatosplenomegaly present and no masses AUSCULTATION: Yes normoactive bowel sounds PALPATION: Yes Soft to palpation and Yes No hepatosplenomegaly present RECTAL EXAM: Yes deferred Extremity: COMMON NORMALS: no clubbing, cyanosis or edema and no pedal edema Data 08/26/22 10:43 08/26/22 10:43 Micro: Microbiology 08/26/22 12:32 Blood Culture - Preliminary Blood SPECIMEN COLLECTED 08/26/22 12:30 Blood Culture - Preliminary Blood SPECIMEN COLLECTED A&P Assessment and plan (1) Community acquired pneumonia: (2) Hypothyroidism: (3) COPD (chronic obstructive pulmonary disease): (4) History of mitral valve prosthesis: (5) Heart failure: (6) Pacemaker: Plan 86 year old male with past medical history of congestive heart failure, AICD in place, hypothyroidism, COPD not on home oxygen, status post mitral valve replacement, came in today with chief complaint of worsening shortness of breath going on for the last 3-week, accompanied with whitish sputum, Chest congestion, occasional intermittent chest pain, orthopnea, subjective fever. According to the patient SOB have been worsening in the last few days. Plan: Community-acquired pneumonia Acute decompensated heart failure History of hypothyroidism History of COPD S/p MVR Plan: Follow blood culture Urine Legionella antigen Bacterial antigen panel Follow-up procalcitonin RSV panel TSH Rapid COVID at home was negative Follow digoxin level Follow 2D echo Sputum gram stain and culture Continue ceftriaxone azithromycin for now DuoNebs Mucomyst, Mucinex Continue warfarin. 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 Anticipated length of stay greater than 2 midnights Time Spent in Patient Care: Greater than 35 minutes (>than 50% of time spent in counselling and/or direct pt care on unit). Coding Level of Care Code Acute Quality Compliance Consultant for [facility] Fwd Exam Detailed Diagnoses Community acquired pneumonia J18.9 Hypothyroidism E03.9 COPD (chronic obstructive pulmonary disease) J44.9 History of mitral valve prosthesis Z95.2 Heart failure I50.9 Pacemaker Z95.0
[2022-08-26 13:37] LABS: Troponin 5 2HR 68.89 ng/L (0-15)
[2022-08-26 13:38] LABS: Troponin 5 2HR Delta -5.11 ABS# (0-10)
--- NOTE | 2022-08-26 13:57 | USCV_ITS ---
Memo Salazar Age: 86 Gender: M : 1935 Exam Date: 08/26/2022 14:33 Ordering Phys: Elie Harris MD Technologist: Giovani Varghese [place] [facility]: chest pain sob BP: 108 / 62 HR: 87 Rhythm: Sinus Technical Quality: Adequate MEASUREMENTS (Male / Female) Normal Values 2D ECHO LV Diastolic Diameter PLAX 6.8 cm 4.2 - 5.9 / 3.9 - 5.3 cm LV Systolic Diameter PLAX 4.6 cm IVS Diastolic Thickness 1.1 cm 0.6 - 1.0 / 0.6 - 0.9 cm IVS Systolic Thickness 2.2 cm LVPW Diastolic Thickness 1.3 cm 0.6 - 1.0 / 0.6 - 0.9 cm LVPW Systolic Thickness 1.9 cm LVOT Diameter 2.0 cm LV Ejection Fraction 2D Teich 59.3 % LV Ejection Fraction MOD 2C 56.8 % LV Ejection Fraction 2C AL 55.7 % LA Diameter 6.6 cm IVC Diameter 2.4 cm M-MODE Aortic Annulus Diameter 3.6 cm LA Ao Ratio MM 1.8 MV E Point Septal Separation 2.9 cm DOPPLER AV Peak Velocity 281.0 cm/s LVOT Peak Velocity 113.0 cm/s AV Area Cont Eq vti 1.4 cm squared AV Area Cont Eq pk 1.3 cm squared TR Peak Velocity 320.7 cm/s TR Peak Gradient 41.1 mmHg TV Peak E Velocity 119.0 cm/s Right Atrial Pressure 3.0 mmHg Pulmonary Artery Systolic Pressu 44.1 mmHg RV Acceleration Time 0.1 s FINDINGS Left Ventricle Normal left ventricular cavity size. Moderately decreased left ventricular systolic function. Left ventricular ejection fraction is estimated at 35-40 %. Moderate global hypokinesis with regional variation. Abnormal septal motion consistent with pacemaker. Right Ventricle Normal right ventricular size and systolic function. Right ventricular systolic pressure 51 mmHg. ICD/pacemaker wire visualized in the right ventricle. Right Atrium Normal right atrial size. ICD/pacemaker wire in the right atrial cavity. Left Atrium Severely increased left atrial size. Mitral Valve Severe mitral annular calcification. Thickened mitral valve. Status post mitral valve repair possibly with annuloplasty ring. No mitral valve stenosis. Mild mitral valve regurgitation. Aortic Valve Aortic valve not well visualized. Bioprosthetic aortic valve in situ, well-seated and normally functioning. Peak velocity 2.5 m/s and peak gradient 25 mmHg, mean gradient 11 mm Hg, aortic valve area of by continuity equation of 1.5 cm2. Tricuspid Valve Structurally normal tricuspid valve. [id number] tricuspid valve regurgitation. Pulmonic Valve Pulmonic valve not well visualized. Pericardium No pericardial effusion. Aorta Normal-sized aortic root. IVC Dilated IVC with normal respiratory variation. CONCLUSIONS 1. This is a technically difficult study. 2. Normal left ventricular cavity size. Moderately decreased left ventricular systolic function. Left ventricular ejection fraction is estimated at 35-40 %. Moderate global hypokinesis with regional variation. 3. Status post mitral valve repair possibly with annuloplasty ring. 4. Bioprosthetic aortic valve in situ, well-seated and normally functioning. Peak velocity 2.5 m/s and peak gradient 25 mmHg, mean gradient 11 mm Hg, aortic valve area of by continuity equation of 1.5 cm2. 5. No prior similar studies to compare. Radha Rosario MD (Electronically Signed) Final Date: 27 August 2022 10:33 S
--- NOTE | 2022-08-26 14:34 | PC.NURSE ---
REPORT CALLED TO FILI SHEN IN MED SURG.
[2022-08-26] MEDS: guaiFENesin 600 mg Tablet 1200 MG PO ×2 (14:47→17:07)
[2022-08-26] MEDS: acetylcysteine 200 mg/mL SDV 4 mL INHALATION ×2 (15:55→20:58)
[2022-08-26] MEDS: ipratropium-albuterol 3 mL Neb INHALATION ×2 (15:55→20:57)
[2022-08-26] MEDS: warfarin 5 mg Tablet PO (17:07)
[2022-08-26 17:45] LABS: Troponin 5 6HR 79.43 ng/L (0-15)
--- NOTE | 2022-08-26 17:48 | ECG_ITS ---
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 Measurements Intervals [place] Rate: 75 P: 0 GA: 0 QRS: 252 QRSD: 230 T: -25 QT: 502 QTc: 561 Interpretive Statements ELECTRONIC VENTRICULAR PACEMAKER ABNORMAL RHYTHM ECG Compared to ECG 08/26/2022 13:05:36 No significant changes Electronically Signed On 08-26-2022 19:05:14 CORE DRILL OPERATOR by Radha Rosario M.D. [id number]
[2022-08-26 17:57] LABS: Troponin 5 6HR Delta 5.43 ng/L (0-12)
[2022-08-26] MEDS: acetaminophen 325 mg Tablet 650 MG PO (19:45)
[2022-08-27] VITALS (14 sets, daily range): BP systolic 97–123; BP diastolic 52–71; PULSE 73–83; RESP 17–28; TEMP 36.6–37.1; O2SAT 90–99
[2022-08-27] MEDS: acetylcysteine 200 mg/mL SDV 4 mL INHALATION ×6 (03:15→20:15)
[2022-08-27] MEDS: ipratropium-albuterol 3 mL Neb INHALATION ×6 (03:15→20:15)
[2022-08-27 04:50] LABS: Basophils # 0.1 10^3/uL (0.0-0.1); Basophils % 0.3 %; Eosinophils % 0.1 %; Hematocrit 35.9 % (42.0-52.0); Hemoglobin 11.4 g/dL (11.7-16.6); Lymphocytes # 0.9 10^3/uL (0.8-4.8); Lymphocytes % 5.4 %; Mean Corpuscular HGB Conc 31.8 g/dL (30.0-36.0); Mean Corpuscular Hemoglobin 30.1 pg (28.0-34.0); Mean Corpuscular Volume 94.7 fl (80-94); Mean Platelet Volume 11.3 fL (7.4-10.4); Monocytes # 1.6 10^3/uL (0.2-0.9); Monocytes % 9.8 %; Neutrophils # 13.89 10^3/uL (1.8-7.7); Neutrophils % 83.8 %; Nucleated Red Blood Cells % 0 %; Platelet Count 168 10^3/cmm (130-400); Red Blood Count 3.79 10^6/uL (4.1-5.3); White Blood Count 16.6 10^3/uL (4.0-10.0)
[2022-08-27 05:26] LABS: Procalcitonin 0.35 ng/mL (0-0.5); Thyroid Stimulating Hormone 1.38 uIU/mL (0.27-4.20)
[2022-08-27 05:38] LABS: Alanine Aminotransferase 11 U/L (0-41); Albumin Level 3.6 g/dL (3.5-5.2); Alkaline Phosphatase 81 U/L (40-130); Anion Gap 14.5 (5-19); Aspartate Amino Transferase 15 U/L (0-40); Blood Urea Nitrogen 20 mg/dL (8-23); Carbon Dioxide 26 mmol/L (22-29); Chloride 97 mmol/L (98-107); Globulin 3.1 g/dL (1.3-4.6); Glucose 107 mg/dL (65-115); Magnesium 1.8 mg/dL (1.7-2.3); Osmolality Calculated 281 mOsm/kg (285-295); Potassium 3.5 mmol/L (3.5-5.1); Sodium 134 mmol/L (136-145); Total Bilirubin 3.2 mg/dL (0.15-1.2); Total Protein 6.7 g/dL (6.6-8.7)
[2022-08-27] MEDS: cefTRIAXone 1,000 MG in sodium chloride 0.9% (plus) 50 ML 100 MG IV (06:45)
[2022-08-27] MEDS: pantoprazole DR 40 mg Tablet PO (08:24)
[2022-08-27] MEDS: guaiFENesin 600 mg Tablet 1200 MG PO ×2 (08:24→17:32)
[2022-08-27] MEDS: FUROsemide 10 mg/mL SDV 4mL 40 MG IVP (08:24)
[2022-08-27] MEDS: levothyroxine 100 mcg Tablet PO (08:24)
[2022-08-27] MEDS: digoxin 125 mcg Tablet PO (08:24)
[2022-08-27] MEDS: azithromycin 500 MG in sodium chloride 0.9% 250 ML 250 MG IV (08:25)
[2022-08-27] MEDS: atorvastatin 40 mg Tablet 20 MG PO (08:25)
[2022-08-27 09:45] LABS: Adenovirus Not Detected (NOT DETECT); Chlamydia Pneumoniae Not Detected (NOT DETECT); Coronavirus 229E,HKU1,NL63,OC4 Not Detected (NOT DETECT); Human Metapneumovirus Not Detected (NOT DETECT); Human Rhinovirus/Enterovirus Not Detected (NOT DETECT); Influenza A Not Detected (NOT DETECT); Influenza A H1 Not Detected (NOT DETECT); Influenza A H1-2009 Not Detected (NOT DETECT); Influenza A H3 Not Detected (NOT DETECT); Influenza B Not Detected (NOT DETECT); Mycoplasma Pneumoniae Not Detected (NOT DETECT); Parainfluenza Virus Type 1 Not Detected (NOT DETECT); Parainfluenza Virus Type 2 Not Detected (NOT DETECT); Parainfluenza Virus Type 3 Not Detected (NOT DETECT); Parainfluenza Virus Type 4 Not Detected (NOT DETECT); Respiratory Syncytial Virus A Not Detected (NOT DETECT); Respiratory Syncytial Virus B Not Detected (NOT DETECT); SARS-COV-2 Not Detected (NOT DETECT)
--- NOTE | 2022-08-27 10:32 | PC.CHAP ---
Pastoral Care Encounter/Spiritual Assessment Type of Contact [] Declined family sociologist visit [] Patient/Family/Request visit [] Outpatient visit [] Follow-up visit [] Physician referral [] Code/Alert [x] Routine visit [] Staff referral [] Actively dying [] Patient sleeping [] Family support [] [] Out of room [] Palliative care [] [] Receiving care in room [] Pre-surgical visit [] Trauma [] Long length of stay [] ICU visit [] Other: Relational/Emotional Strength [x] Patient feels connected with others/family/visitors/staff [] Distress [] Loneliness/isolation [] Abandonment Spirituality of Patient [x] Person of Jessie [] Attends Episcopalian of their Jessie [x] Believes in Prayer [] Reads Bible or Adventism materials [] There are Spiritual issues to be addressed Housing Specialist Interventions [x] Prayer [] Active listening [] Non-anxious presence [] Spiritual/emotional support [] Crisis/trauma care [] Spiritual counseling [] Bereavement support [] Provided bereavement packet [x] Provided Bible/devotional materials [] Provided toy/stuffed animal, coloring book to patient or family member [] Provided Communion [] Anointing/[place] [] Salvation [x] Completed spiritual assessment [] Other: Impact on Illness or Injury [] Angry [] Fearful [] Anxious [] Often cries [] Exhaustion [] Unable to work [] Unable to attend mormon [] Unable to walk/stand [] Unable to read [] Unable to drive [] Unable to eat/drink [] Unable to sleep [] Unable to be with family [] Patient intubated [] Other: Summary Time spent with patient 10 min
--- NOTE | 2022-08-27 12:00 | PM.PN ---
Subjective Subjective: Patient was seen and examined this morning still has significant coughing, has been afebrile overnight. His other vitals and labs have been reviewed. Medications: Medication Review Details: Generic Name Dose Route Start Last Admin Trade Name Tanya PRN Reason Stop Dose Admin Acetaminophen 650 mg 08/26/22 13:18 08/26/22 19:45 Acetaminophen 32 5 Mg Tablet PO 650 mg Q6H PRN Administration Mild/Mod Pain Or Temp >/= 101 Acetylcysteine 200 mg 08/26/22 16:00 08/27/22 11:32 Acetylcysteine 2 00 Mg/Ml Sdv 4 Ml INHALATION 200 mg Q4H.RESPIRATORY S CH Administration Albuterol/Ipratrop ium 3 ml 08/26/22 16:00 08/27/22 11:32 Ipratropium-Albu terol 3 Ml Neb INHALATION 3 ml Q4H.RESPIRATORY S CH Administration Atorvastatin Calci um 20 mg 08/27/22 09:00 08/27/22 08:25 Atorvastatin 40 Mg Tablet PO 20 mg DAILY RADHA Administration Digoxin 125 mcg 08/27/22 09:00 08/27/22 08:24 Digoxin 125 Mcg Tablet PO 125 mcg DAILY RADHA Administration Furosemide 40 mg 08/27/22 09:00 08/27/22 08:24 Furosemide 10 Mg /Ml Sdv 4ml IVP 40 mg DAILY RADHA Administration Guaifenesin 1,200 mg 08/26/22 14:05 08/27/22 08:24 Guaifenesin 600 Mg Tablet PO 1,200 mg BID RADHA Administration Ceftriaxone Sodium 1,000 mg/ 50 mls @ 100 mls/ hr 08/27/22 07:00 08/27/22 06:45 Sodium Chloride IV 100 mls/hr Q24H RADHA Administration Protocol Azithromycin 500 m g/ Sodium 250 mls @ 250 mls /hr 08/27/22 07:00 08/27/22 08:25 Chloride IV 250 mls/hr Q24H RADHA Administration Protocol Levothyroxine Sodi um 100 mcg 08/27/22 09:00 08/27/22 08:24 Levothyroxine 10 0 Mcg Tablet PO 100 mcg DAILY RADHA Administration Pantoprazole Sodiu m 40 mg 08/27/22 09:00 08/27/22 08:[address] 40 Mg Tablet PO 40 mg DAILY RADHA Administration Warfarin Sodium 5 mg 08/26/22 14:00 08/26/22 17:07 Warfarin 5 Mg Ta blet PO 5 mg MoTh@1400 RADHA Administration Vitals/I&O/Wt Last Vital Signs Temp 98 F 08/27/22 08:00 Pulse 75 08/27/22 11:35 Resp 20 H 08/27/22 11:35 BP 103/52 08/27/22 08:00 Pulse Ox 97 08/27/22 11:35 O2 Del Method 08/27/22 11:35 O2 Flow Rate 2 08/27/22 11:35 08/26/22 08/27/22 08/27/22 22:59 06:59 14:59 Intake Total 210 / 210 320 / 530 Output Total 200 / 200 250 / 450 Balance 70 / 80 Weight last 48 hrs Weight 78.154 kg Weight 77.02 kg Weight 77.111 kg Physical Exam Const: COMMON NORMALS: patient oriented x3 Resp: OTHER: Bilateral wheezing present in both the lungs iraheta as well as bilateral rhonchi. Cardio: COMMON NORMALS: regular rate, regular rhythm, S1 normal heart sound present, S2 normal heart sound present, No gallops present (Cardio), No murmurs present (Cardio), No rub (Cardio) and Peripheral pulses 2+ throughout RATE: regular rate RHYTHM: regular rhythm HEART SOUNDS: S1 normal heart sound present and S2 normal heart sound present PERIPHERAL PULSES: Peripheral pulses 2+ throughout GI: COMMON NORMALS: Normal to inspection, nondistended, normoactive bowel sounds present, Soft to palpation, non-tender, No hepatosplenomegaly present and no masses AUSCULTATION: Yes normoactive bowel sounds PALPATION: Yes Soft to palpation and Yes No hepatosplenomegaly present RECTAL EXAM: Yes deferred Extremity: COMMON NORMALS: no clubbing, cyanosis or edema and no pedal edema Neuro: COMMON NORMALS: patient oriented x3 Data 08/27/22 04:24 08/27/22 04:24 Micro: Microbiology 08/27/22 05:45 Bacterial Antigens - Final Urine,Clean Catch 08/27/22 05:45 Legionella Urinary Antigen - Final Urine,Clean Catch 08/26/22 12:32 Blood Culture - Preliminary Blood SPECIMEN COLLECTED 08/26/22 12:30 Blood Culture - Preliminary Blood SPECIMEN COLLECTED A&P Assessment and plan (1) Community acquired pneumonia: (2) Hypothyroidism: (3) COPD (chronic obstructive pulmonary disease): (4) History of mitral valve prosthesis: (5) Heart failure: (6) Pacemaker: Plan 86 year old male with past medical history of congestive heart failure, AICD in place, hypothyroidism, COPD not on home oxygen, status post mitral valve replacement, came in today with chief complaint of worsening shortness of breath going on for the last 3-week, accompanied with whitish sputum, Chest congestion, occasional intermittent chest pain, orthopnea, subjective fever. According to the patient SOB have been worsening in the last few days. Plan: Community-acquired pneumonia Acute decompensated heart failure History of hypothyroidism COPD exacerbation S/p MV repair Status post bioprosthetic aortic valve Plan: Follow blood culture Urine Legionella antigen: Negative Bacterial antigen panel: Negative Follow-up procalcitonin: 0.35 RSV panel: Negative COVID PCR negative TSH :1.38 Rapid COVID at home was negative Follow digoxin level:1 2D echo:?Normal left ventricular cavity size.? Moderately decreased ?left ventricular systolic function. Left ventricular ejection fraction is estimated at 35-40 %. Moderate global hypokinesis ?with regional variation. Status post mitral valve repair possibly with annuloplasty ?ring. Bioprosthetic aortic valve in situ, well-seated and ?normally functioning.? Peak velocity 2.5 m/s and peak gradient 25 mmHg, mean gradient 11 mm Hg, aortic valve area of by continuity equation of 1.5 cm2. Sputum gram stain and culture Continue ceftriaxone azithromycin for now DuoNebs Mucomyst, Mucinex Continue warfarin. Monitor PT/INR Continue Lasix 40 IV daily Continue Solu-Medrol 40 IV twice daily Continue digoxin 125 mcg p.o. 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
[2022-08-27] MEDS: warfarin 2.5 mg Tablet PO (14:20)
[2022-08-27] MEDS: acetaminophen 325 mg Tablet 650 MG PO (16:00)
[2022-08-28] VITALS (15 sets, daily range): BP systolic 93–118; BP diastolic 52–69; PULSE 75–89; RESP 16–24; TEMP 36.4–36.9; O2SAT 93–98
[2022-08-28] MEDS: ipratropium-albuterol 3 mL Neb INHALATION ×7 (00:11→23:10)
[2022-08-28] MEDS: acetylcysteine 200 mg/mL SDV 4 mL INHALATION ×3 (04:42→11:39)
[2022-08-28 05:09] LABS: Basophils % 0.1 %; Hemoglobin 10.5 g/dL (11.7-16.6); Lymphocytes # 0.4 10^3/uL (0.8-4.8); Lymphocytes % 2.9 %; Mean Corpuscular HGB Conc 32.8 g/dL (30.0-36.0); Mean Corpuscular Hemoglobin 30.6 pg (28.0-34.0); Mean Corpuscular Volume 93.3 fl (80-94); Mean Platelet Volume 11.4 fL (7.4-10.4); Monocytes # 0.4 10^3/uL (0.2-0.9); Monocytes % 2.5 %; Neutrophils # 13.91 10^3/uL (1.8-7.7); Nucleated Red Blood Cells % 0 %; Platelet Count 181 10^3/cmm (130-400); Red Blood Count 3.43 10^6/uL (4.1-5.3); Red Cell Distribution Width 14.7 % (12.1-15.1); White Blood Count 14.8 10^3/uL (4.0-10.0)
[2022-08-28 05:22] LABS: INR 2.31 (0.8-1.2)
[2022-08-28 05:34] LABS: Alanine Aminotransferase 13 U/L (0-41); Albumin Level 3.3 g/dL (3.5-5.2); Alkaline Phosphatase 111 U/L (40-130); Anion Gap 13.4 (5-19); Aspartate Amino Transferase 18 U/L (0-40); Blood Urea Nitrogen 26 mg/dL (8-23); Calcium 8.9 mg/dL (8.5-10.5); Carbon Dioxide 24 mmol/L (22-29); Chloride 97 mmol/L (98-107); Globulin 3.5 g/dL (1.3-4.6); Glucose 138 mg/dL (65-115); Osmolality Calculated 279 mOsm/kg (285-295); Potassium 3.4 mmol/L (3.5-5.1); Sodium 131 mmol/L (136-145); Total Bilirubin 1.8 mg/dL (0.15-1.2); Total Protein 6.8 g/dL (6.6-8.7)
[2022-08-28] MEDS: cefTRIAXone 1,000 MG in sodium chloride 0.9% (plus) 50 ML 100 MG IV (06:31)
[2022-08-28] MEDS: metoprolol succinate ER (24 HR) 25 mg Tablet 12.5 MG PO (08:25)
[2022-08-28] MEDS: levothyroxine 100 mcg Tablet PO (08:27)
[2022-08-28] MEDS: pantoprazole DR 40 mg Tablet PO (08:27)
[2022-08-28] MEDS: atorvastatin 40 mg Tablet 20 MG PO (08:27)
[2022-08-28] MEDS: digoxin 125 mcg Tablet PO (08:28)
[2022-08-28] MEDS: FUROsemide 10 mg/mL SDV 4mL 40 MG IVP (08:28)
[2022-08-28] MEDS: azithromycin 500 MG in sodium chloride 0.9% 250 ML 250 MG IV (08:29)
[2022-08-28] MEDS: guaiFENesin 600 mg Tablet 1200 MG PO ×2 (08:30→16:16)
[2022-08-28] MEDS: potassium chloride ER 20 mEq Tablet 40 MEQ PO (12:37)
[2022-08-28] MEDS: warfarin 2.5 mg Tablet PO (16:24)
--- NOTE | 2022-08-28 18:44 | P.PN_ITS ---
Subjective Subjective: Patient was seen and examined this morning shortness of breath is improved. Overall doing better. Medications: Medication Review Details: Generic Name Dose Route Start Last Admin Trade Name Freq PRN Reason Stop Dose Admin Acetaminophen 650 mg 08/26/22 13:18 08/27/22 16:00 Acetaminophen 32 5 Mg Tablet PO 650 mg Q6H PRN Administration Mild/Mod Pain Or Temp >/= 101 Acetylcysteine 200 mg 08/26/22 16:00 08/28/22 15:29 Acetylcysteine 2 00 Mg/Ml Sdv 4 Ml INHALATION Not Given Q4H.RESPIRATORY S CH Albuterol/Ipratrop ium 3 ml 08/26/22 16:00 08/28/22 15:30 Ipratropium-Albu terol 3 Ml Neb INHALATION 3 ml Q4H.RESPIRATORY S CH Administration Atorvastatin Calci um 20 mg 08/27/22 09:00 08/28/22 08:27 Atorvastatin 40 Mg Tablet PO 20 mg DAILY RADHA Administration Digoxin 125 mcg 08/27/22 09:00 08/28/22 08:28 Digoxin 125 Mcg Tablet PO 125 mcg DAILY RADHA Administration Guaifenesin 1,200 mg 08/26/22 14:05 08/28/22 16:16 Guaifenesin 600 Mg Tablet PO 1,200 mg BID RADHA Administration Ceftriaxone Sodium 1,000 mg/ 50 mls @ 100 mls/ hr 08/27/22 07:00 08/28/22 06:31 Sodium Chloride IV 100 mls/hr Q24H RADHA Administration Protocol Azithromycin 500 m g/ Sodium 250 mls @ 250 mls /hr 08/27/22 07:00 08/28/22 08:29 Chloride IV 250 mls/hr Q24H RADHA Administration Protocol Levothyroxine Sodi um 100 mcg 08/27/22 09:00 08/28/22 08:27 Levothyroxine 10 0 Mcg Tablet PO 100 mcg DAILY RADHA Administration Methylprednisolone Sodium Succinate 40 mg 08/27/22 12:30 08/28/22 12:37 Methylprednisolo ne Sod Succ 40 Mg/ Ml Inj IVP 40 mg Q12H RADHA Administration Metoprolol Succina te 12.5 mg 08/27/22 09:00 08/28/22 08:25 Metoprolol Succi fransisco Er (24 Hr) 25 Mg Tablet PO 12.5 mg DAILY RADHA Administration Pantoprazole Sodiu m 40 mg 08/27/22 09:00 08/28/22 08:[address] 40 Mg Tablet PO 40 mg DAILY RADHA Administration Potassium Chloride 40 meq 08/28/22 09:30 08/28/22 12:37 Potassium Chlori de Er 20 Meq Table t PO 40 meq DAILY RADHA Administration Warfarin Sodium 5 mg 08/26/22 14:00 08/26/22 17:07 Warfarin 5 Mg Ta blet PO 5 mg MoTh@1400 RADHA Administration Warfarin Sodium 2.5 mg 08/27/22 14:00 08/28/22 16:24 Warfarin 2.5 Mg Tablet PO 2.5 mg SuTuWeFrSa@1400 S CH Administration Vitals/I&O/Wt Last Vital Signs Temp 98.3 F 08/28/22 16:00 Pulse 79 08/28/22 16:00 Resp 18 08/28/22 16:00 BP 93/52 08/28/22 16:00 Pulse Ox 95 08/28/22 16:00 O2 Del Method 08/28/22 16:00 O2 Flow Rate 1 08/28/22 11:40 08/28/22 08/28/22 08/28/22 06:59 14:59 22:59 Intake Total 330 / 630 720 / 720 480 / 1200 Output Total 550 / 1000 500 / 500 Balance -220 / -370 720 / 720 -20 / 700 Weight last 48 hrs Weight 80.377 kg Weight 78.154 kg Physical Exam Const: COMMON NORMALS: patient oriented x3 Resp: EFFORT & INSPECTION: Yes symmetric chest movement OTHER: Minimal bilateral wheezing Cardio: COMMON NORMALS: regular rate, regular rhythm, S1 normal heart sound present, S2 normal heart sound present, No gallops present (Cardio), No murmurs present (Cardio), No rub (Cardio) and Peripheral pulses 2+ throughout RATE: regular rate RHYTHM: regular rhythm HEART SOUNDS: S1 normal heart sound present and S2 normal heart sound present PERIPHERAL PULSES: Peripheral pulses 2+ throughout GI: COMMON NORMALS: Normal to inspection, nondistended, normoactive bowel sounds present, Soft to palpation, non-tender, No hepatosplenomegaly present and no masses AUSCULTATION: Yes normoactive bowel sounds PALPATION: Yes Soft to palpation and Yes No hepatosplenomegaly present RECTAL EXAM: Yes deferred Extremity: COMMON NORMALS: no clubbing, cyanosis or edema and no pedal edema Neuro: COMMON NORMALS: patient oriented x3 Data 08/28/22 04:33 08/28/22 04:33 Micro: Microbiology 08/27/22 05:45 Gram Stain - Final Sputum - Expectorated Sputum Sputum Culture - Preliminary Enterococcus species 08/26/22 16:15 MRSA Culture - Final Nose A&P Assessment and plan (1) Community acquired pneumonia: (2) Hypothyroidism: (3) COPD (chronic obstructive pulmonary disease): (4) History of mitral valve prosthesis: (5) Heart failure: (6) Pacemaker: Plan 86 year old male with past medical history of congestive heart failure, AICD in place, hypothyroidism, COPD not on home oxygen, status post mitral valve replacement, came in today with chief complaint of worsening shortness of breath going on for the last 3-week, accompanied with whitish sputum, Chest congestion, occasional intermittent chest pain, orthopnea, subjective fever. According to the patient SOB have been worsening in the last few days. Plan: Community-acquired pneumonia Acute decompensated heart failure History of hypothyroidism COPD exacerbation S/p MV repair Status post bioprosthetic aortic valve Plan: Follow blood culture Urine Legionella antigen: Negative Bacterial antigen panel: Negative Follow-up procalcitonin: 0.35 RSV panel: Negative COVID PCR negative TSH :1.38 Rapid COVID at home was negative Follow digoxin level:1 2D echo:?Normal left ventricular cavity size.? Moderately decreased ?left ventricular systolic function. Left ventricular ejection fraction is estimated at 35-40 %. Moderate global hypokinesis ?with regional variation. Status post mitral valve repair possibly with annuloplasty ?ring. Bioprosthetic aortic valve in situ, well-seated and ?normally functioning.? Peak velocity 2.5 m/s and peak gradient 25 mmHg, mean gradient 11 mm Hg, aortic valve area of by continuity equation of 1.5 cm2. Sputum gram stain and culture Continue ceftriaxone azithromycin for now DuoNebs Mucomyst, Mucinex Continue warfarin. Monitor PT/INR Continue Lasix 40 IV daily Continue Solu-Medrol 40 IV twice daily Continue digoxin 125 mcg p.o. 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
[2022-08-28] MEDS: guaiFENesin 100 mg/5 mL UDC 10 mL 200 MG PO (20:44)
[2022-08-28] MEDS: temazepam 15 mg Capsule PO (23:30)
[2022-08-29] VITALS (8 sets, daily range): BP systolic 114–119; BP diastolic 70–73; PULSE 75–81; RESP 18–24; TEMP 36.7; O2SAT 86–98
--- NOTE | 2022-08-29 05:01 | PC.NURSE ---
pt position shifter slightly but predominantly supine most of this shift
[2022-08-29 05:17] LABS: Basophils % 0.1 %; Hematocrit 32.4 % (42.0-52.0); Hemoglobin 10.3 g/dL (11.7-16.6); Lymphocytes # 0.5 10^3/uL (0.8-4.8); Lymphocytes % 3.6 %; Mean Corpuscular HGB Conc 31.8 g/dL (30.0-36.0); Mean Corpuscular Hemoglobin 30.3 pg (28.0-34.0); Mean Corpuscular Volume 95.3 fl (80-94); Mean Platelet Volume 11.1 fL (7.4-10.4); Monocytes # 0.6 10^3/uL (0.2-0.9); Monocytes % 4.4 %; Neutrophils # 13.14 10^3/uL (1.8-7.7); Neutrophils % 91.4 %; Nucleated Red Blood Cells % 0.1 %; Platelet Count 217 10^3/cmm (130-400); Red Cell Distribution Width 14.9 % (12.1-15.1); White Blood Count 14.4 10^3/uL (4.0-10.0)
[2022-08-29 05:33] LABS: INR 2.71 (0.8-1.2)
[2022-08-29 05:43] LABS: Alanine Aminotransferase 99 U/L (0-41); Albumin Level 3.2 g/dL (3.5-5.2); Alkaline Phosphatase 94 U/L (40-130); Anion Gap 14.9 (5-19); Aspartate Amino Transferase 110 U/L (0-40); Blood Urea Nitrogen 36 mg/dL (8-23); Calcium 8.9 mg/dL (8.5-10.5); Carbon Dioxide 23 mmol/L (22-29); Chloride 98 mmol/L (98-107); Globulin 3.3 g/dL (1.3-4.6); Glucose 136 mg/dL (65-115); Osmolality Calculated 284 mOsm/kg (285-295); Potassium 3.9 mmol/L (3.5-5.1); Sodium 132 mmol/L (136-145); Total Protein 6.5 g/dL (6.6-8.7)
[2022-08-29] MEDS: cefTRIAXone 1,000 MG in sodium chloride 0.9% (plus) 50 ML 100 MG IV (06:02)
[2022-08-29] MEDS: azithromycin 500 MG in sodium chloride 0.9% 250 ML 250 MG IV (06:40)
[2022-08-29] MEDS: ipratropium-albuterol 3 mL Neb INHALATION (08:04)
[2022-08-29] MEDS: atorvastatin 40 mg Tablet 20 MG PO (08:49)
[2022-08-29] MEDS: digoxin 125 mcg Tablet PO (08:49)
[2022-08-29] MEDS: levothyroxine 100 mcg Tablet PO (08:49)
[2022-08-29] MEDS: pantoprazole DR 40 mg Tablet PO (08:49)
[2022-08-29] MEDS: guaiFENesin 600 mg Tablet 1200 MG PO (08:51)
[2022-08-29] MEDS: metoprolol succinate ER (24 HR) 25 mg Tablet 12.5 MG PO (08:52)
[2022-08-29] MEDS: potassium chloride ER 20 mEq Tablet 40 MEQ PO (08:52)
[2022-08-29] MEDS: FUROsemide 40 mg Tablet PO (08:53)
--- NOTE | 2022-08-29 12:22 | PC.SOCIAL ---
IMM Update pg 2 of IMM updated and reviewed w/ patient. Copy provided and copy dated, initialed and placed in chart.
--- NOTE | 2022-08-29 14:59 | P.DS_ITS ---
Discharge Providers Date of Admission: 08/26/22 14:30 Date of Discharge: August 29, 2022 Attending Provider at Admission: Elie Harris MD Attending Provider at Discharge: Elie Harris MD Primary Care Provider: Sun Cox MD Diagnoses at Discharge Discharge Diagnosis (1) Community acquired pneumonia: Status: Acute (2) Hypothyroidism: Status: Acute (3) COPD (chronic obstructive pulmonary disease): Status: Acute (4) History of mitral valve prosthesis: Status: Acute (5) Heart failure: Status: Acute (6) Pacemaker: Status: Acute Reason for Visit Reason for Visit: SOB Hospital Course Hospital Course Memo Salazar is a 86 year old male with past medical history of congestive heart failure, AICD in place, hypothyroidism, COPD not on home oxygen, status post mitral valve replacement, came in today with chief complaint of worsening shortness of breath going on for the last 3-week, accompanied with whitish sputum, Chest congestion, occasional intermittent chest pain, orthopnea, subjective fever. He was admitted for the management of: Community-acquired pneumonia,Acute decompensated heart failure, COPD, Hypoxia secondary to pneumonia and heart failure, Urine Legionella antigen: Negative,Bacterial antigen panel: Negative, procalcitonin: 0.35, RSV panel: Negative, COVID PCR negative, sputum was growing Enterococcus species, Blood culture was negative,2DEcho: Normal left ventricular cavity size.? Moderately decreased ?left ventricular systolic function. Left ventricular ejection fraction is estimated at 35-40 %. Moderate global hypokinesis ?with regional variation. Status post mitral valve repair possibly with annuloplasty ?ring. Bioprosthetic aortic valve in situ, well-seated and ?normally functioning.? Peak velocity 2.5 m/s and peak gradient 25 mmHg, mean gradient 11 mm Hg, aortic valve area of by continuity equation of 1.5 cm2 patient was kept on antibiotics steroids IV Lasix, nebs, pulmonary toilet, incentive spirometer flutter valve, Patient responded well to medical management at the time of discharge and qualified for 2 L home oxygen on ambulation, he was discharged on albuterol as well as Pulmicort inhaler, Lasix dose has been changed to 40 mg p.o. daily, he was on 20 mg p.o. daily at home dose, he was also prescribed Augmentin as well as p.o. prednisone for 5 days on discharge. Lately patient has been experiencing some difficulty with swallowing, he also has prior history of d ysphagia details of which is currently not available, outpatient barium swallow study has asked for. Patient overall has responded well to medical management and was discharged in stable condition to home. He will follow-up with his primary care physician as well as cardiology as outpatient. Physical Exam Const: COMMON NORMALS: patient oriented x3 Resp: COMMON NORMALS: normal respiratory effort, No retractions, No use of accessory muscles and clear to auscultation bilaterally EFFORT & INSPECTION: Yes symmetric chest movement AUSCULTATION: clear to auscultation bilaterally OTHER: Minimal bilateral wheezing Cardio: COMMON NORMALS: regular rate, regular rhythm, S1 normal heart sound present, S2 normal heart sound present, No gallops present (Cardio), No murmurs present (Cardio), No rub (Cardio) and Peripheral pulses 2+ throughout RATE: regular rate RHYTHM: regular rhythm HEART SOUNDS: S1 normal heart sound present and S2 normal heart sound present PERIPHERAL PULSES: Peripheral pulses 2+ throughout GI: COMMON NORMALS: Normal to inspection, nondistended, normoactive bowel sounds present, Soft to palpation, non-tender, No hepatosplenomegaly present and no masses AUSCULTATION: Yes normoactive bowel sounds PALPATION: Yes Soft to palpation and Yes No hepatosplenomegaly present RECTAL EXAM: Yes deferred Extremity: COMMON NORMALS: no clubbing, cyanosis or edema and no pedal edema Neuro: COMMON NORMALS: patient oriented x3 Discharge Data Studies Completed and Pending Completed Studies During Hospitalization Category Date Time Status XR chest 1V portable [id number] Stat Exams 08/26/22 10:09 Completed CV. echo complete* [id number] Stat Ultrasound 08/26/22 13:57 Completed Pending at discharge Category Date Time Status Blood Culture Stat Lab 08/26/22 12:32 Results Sputum Culture and Gram Stain Routine Lab 08/27/22 05:45 Results Radiology Impressions Chest X-Ray 08/26/22 10:09 IMPRESSION: 1. Hazy peripheral opacities in the mid and lower right chest. Patchy hazy opacity at the left base. Consider CT to better characterize. 2. There is mild peribronchial wall thickening; query viral infection/bronchitis, chronic bronchitis and/or asthma. 3. The heart is prominently enlarged; similar to prior. Laboratory Results WBC 14.4 10^3/uL (4.0-10.0) H 08/29/22 04:39 RBC 3.40 10^6/uL (4.1-5.3) L 08/29/22 04:39 Hgb 10.3 g/dL (11.7-16.6) L 08/29/22 04:39 Hct 32.4 % (42.0-52.0) L 08/29/22 04:39 MCV 95.3 fl (80-94) H 08/29/22 04:39 MCH 30.3 pg (28.0-34.0) 08/29/22 04:39 MCHC 31.8 g/dL (30.0-36.0) 08/29/22 04:39 RDW 14.9 % (12.1-15.1) 08/29/22 04:39 Plt Count 217 10^3/cmm (130-400) 08/29/22 04:39 MPV 11.1 fL (7.4-10.4) H 08/29/22 04:39 Neut % (Auto) 91.4 % 08/29/22 04:39 Lymph % (Auto) 3.6 % 08/29/22 04:39 [place] % (Auto) 4.4 % 08/29/22 04:39 Eos % (Auto) 0.0 % 08/29/22 04:39 Baso % (Auto) 0.1 % 08/29/22 04:39 Neut # (Auto) 13.14 10^3/uL (1.8-7.7) H 08/29/22 04:39 Lymph # (Auto) 0.5 10^3/uL (0.8-4.8) L 08/29/22 04:39 [place] # (Auto) 0.6 10^3/uL (0.2-0.9) 08/29/22 04:39 Eos # (Auto) 0.0 10^3/uL (0.0-0.8) 08/29/22 04:39 Baso # (Auto) 0.0 10^3/uL (0.0-0.1) 08/29/22 04:39 Nucleated RBC % (auto) 0.1 % 08/29/22 04:39 Nucleated RBCs # 0.0 /100WBC 08/29/22 04:39 PT 29.10 SECONDS (12.1-14.9) H 08/29/22 04:39 INR 2.71 (0.8-1.2) H 08/29/22 04:39 Specimen Type Arterial 08/26/22 13:09 Sample Site Radial, left 08/26/22 13:09 ABG pH 7.49 (7.35-7.45) H 08/26/22 13:09 ABG pCO2 28.9 mmHg (35-45) L 08/26/22 13:09 ABG pO2 69.1 mmHg (80.0-100.0) L 08/26/22 13:09 ABG HCO3 21.9 mmol/L (22-26) L 08/26/22 13:09 ABG O2 Saturation 96.5 08/26/22 13:09 ABG Base Excess -0.4 mmol/L (-2.0-2.0) 08/26/22 13:09 Lazaro Test Pos 08/26/22 13:09 A-a O2 Gradient 16.2 mmHg (5-10) H 08/26/22 13:09 Hematocrit 40.0 % (42-52) L 08/26/22 13:09 Hgb O2 Saturation 94.5 % (95-100) L 08/26/22 13:09 Carboxyhemoglobin 1.6 %THgb (0.4-20.1) 08/26/22 13:09 Methemoglobin 0.4 % (0.4-1.5) 08/26/22 13:09 Total Hemoglobin 13.1 g/dL (14-18) L 08/26/22 13:09 Sodium 135.0 mmol/L (131-143) 08/26/22 13:09 Potassium 3.4 mmol/L (3.5-5.0) L 08/26/22 13:09 Glucose 158.0 mg/dL (70-115) H 08/26/22 13:09 Ionized Calcium 1.1 mmol/L (1.1-1.4) 08/26/22 13:09 O2 Delivery Device Nc 08/26/22 13:09 O2 Liters/Min 3.0 % 08/26/22 13:09 FiO2 32.0 % 08/26/22 13:09 Coffee Farmer ID glc 08/26/22 13:09 Sodium 132 mmol/L (136-145) L 08/29/22 04:39 Potassium 3.9 mmol/L (3.5-5.1) 08/29/22 04:39 Chloride 98 mmol/L (98-107) 08/29/22 04:39 Carbon Dioxide 23 mmol/L (22-29) 08/29/22 04:39 Anion Gap 14.9 (5-19) 08/29/22 04:39 BUN 36 mg/dL (8-23) H 08/29/22 04:39 Creatinine 1.2 mg/dL (0.7-1.2) 08/29/22 04:39 GFR Calculation Not Reportable 08/29/22 04:39 Glucose 136 mg/dL (65-115) H 08/29/22 04:39 Calculated Osmolality 284 mOsm/kg (285-295) L 08/29/22 04:39 Calcium 8.9 mg/dL (8.5-10.5) 08/29/22 04:39 Magnesium 1.8 mg/dL (1.7-2.3) 08/27/22 04:24 Total Bilirubin 1.0 mg/dL (0.15-1.2) 08/29/22 04:39 AST 110 U/L (0-40) H 08/29/22 04:39 ALT 99 U/L (0-41) H 08/29/22 04:39 Alkaline Phosphatase 94 U/L (40-130) 08/29/22 04:39 Troponin T Baseline 74 ng/L (0-15) H 08/26/22 10:43 Troponin T 120 Minute 68.89 ng/L (0-15) H 08/26/22 13:10 Delta Troponin T -5.11 ABS# (0-10) L 08/26/22 13:10 Troponin T Hi Sens 6Hr 79.43 ng/L (0-15) H 08/26/22 17:11 Troponin T Hi Sens 6Hr Delta 5.43 ng/L (0-12) 08/26/22 17:11 NT-Pro-B Natriuret Pep 6771 pg/mL (0-450) H 08/26/22 10:43 Total Protein 6.5 g/dL (6.6-8.7) L 08/29/22 04:39 Albumin 3.2 g/dL (3.5-5.2) L 08/29/22 04:39 Globulin 3.3 g/dL (1.3-4.6) 08/29/22 04:39 Procalcitonin 0.35 ng/mL (0-0.5) 08/27/22 04:24 TSH 1.38 uIU/mL (0.27-4.20) 08/27/22 04:24 Nasal Influ A H1 2009 PCR Not detected (NOT DETECT) 08/26/22 05:45 Digoxin 1.0 ng/mL (0.6-1.2) 08/27/22 04:24 Adenovirus (PCR) Not detected (NOT DETECT) 08/26/22 05:45 C. pneumoniae DNA (PCR) Not detected (NOT DETECT) 08/26/22 05:45 Coronavirus 229E (PCR) Not detected (NOT DETECT) 08/26/22 05:45 Human Metapneumovir PCR Not detected (NOT DETECT) 08/26/22 05:45 Influenza A (H1) PCR Not detected (NOT DETECT) 08/26/22 05:45 Influenza A (H3) PCR Not detected (NOT DETECT) 08/26/22 05:45 Influenza Type A (PCR) Not detected (NOT DETECT) 08/26/22 05:45 Influenza Type B (PCR) Not detected (NOT DETECT) 08/26/22 05:45 M. pneumoniae (PCR) Not detected (NOT DETECT) 08/26/22 05:45 Parainfluenza 1 (PCR) Not detected (NOT DETECT) 08/26/22 05:45 Parainfluenza 2 (PCR) Not detected (NOT DETECT) 08/26/22 05:45 Parainfluenza 3 (PCR) Not detected (NOT DETECT) 08/26/22 05:45 Parainfluenza 4 (PCR) Not detected (NOT DETECT) 08/26/22 05:45 RSV Type A (PCR) Not detected (NOT DETECT) 08/26/22 05:45 RSV Type B (PCR) Not detected (NOT DETECT) 08/26/22 05:45 Entero/Rhino (PCR) Not detected (NOT DETECT) 08/26/22 05:45 SARS-CoV-2 (PCR) Not detected (NOT DETECT) 08/26/22 05:45 Vitals Last Vital Signs Temp 98.1 F 08/29/22 11:47 Pulse 75 08/29/22 11:47 Resp 18 08/29/22 11:47 BP 114/70 08/29/22 11:47 Pulse Ox 98 08/29/22 11:47 O2 Del Method 08/29/22 08:16 O2 Flow Rate 2 08/29/22 10:08 Discharge Plan Discharge Patient Disposition: Home Condition: Stable Prescriptions: New Augmentin 500-125 mg tablet 1 tab PO BID 7 Days Qty: 14 0RF Pulmicort Flexhaler 180 mcg/actuation aerosol powdr breath activated 1 inh inhalation BID Qty: 1 0RF prednisone 20 mg tablet 40 mg PO DAILY 5 Days Qty: 20 0RF K-Tab 10 mEq tablet extended release 20 meq PO DAILY Qty: 30 0RF Proventil HFA 90 mcg/actuation HFA aerosol inhaler 1 inh inhalation Q6H PRN (Reason: shortness of breath or wheezing) Qty: 6.7 1RF Continued warfarin 5 mg tablet See Rx Instructions .ROUTE .COMPLEX Rx Instructions: 5MG PO AT NIGHT ON TUE AND TUE 2.5MG PO AT NIGHT ON TUE,,TUE,,SAT digoxin 125 mcg (0.125 mg) tablet 125 mcg PO DAILY lovastatin 40 mg tablet 40 mg PO DAILY amiodarone 200 mg tablet See Rx Instructions .ROUTE .COMPLEX Rx Instructions: 200 mg orally TUESDAY THROUGH TUESDAY omeprazole 40 mg capsule,delayed release(DR/EC) 40 mg PO DAILY tramadol 50 mg tablet 50 mg PO QAM albuterol sulfate 2.5 mg /3 mL (0.083 %) Solution For Nebulization 2.5 mg INHALATION Q4H PRN (Reason: Shortness Of Breath) metoprolol succinate 25 mg tablet extended release 24 hr 12.5 mg PO DAILY levothyroxine 100 mcg tablet 100 mcg PO DAILY acetaminophen 500 mg Tablet 500 mg PO QAM Rx Instructions: TAKES WITH ULTRAM magnesium 250 mg Tablet 250 mg PO DAILY albuterol sulfate 90 mcg/actuation Hfa Aerosol Inhaler 2 puff INHALATION QID PRN (Reason: Shortness Of Breath) Changed furosemide 20 mg Tablet 40 mg PO QAM 30 Days Qty: 30 0RF Discharge Orders: Discharge Order (Routine); Ordered 08/29/22 Ordered By: Elie Harris Other Ambulatory Orders: [place] barium swallow modifd [id number] (Routine) Timeframe: 1 Week Facility: [facility] - Location: Radiology Ordered By: Elie Harris DME: Oxygen (Order) Location: None Selected Ordered By: Elie Harris Ref[facility]: [facility] [place] Sun Cox MD [Primary Care Provider] - (Please call Tuesday to [facility] you follow up appointment with Dr. Cox.) Patient Instructions: COPD, Albuterol (By breathing), Potassium Chloride (By mouth), Amoxicillin (By mouth), Budesonide (By breathing), Pantoprazole (By mouth), Using Oxygen at Home (ED), COPD Stoplight, Opioid Safety Discharge Attestations Time Spent in Discharge Care*: less than 30 min Quality Metrics Clinical Quality Measures [ No reported AMI, CVA or VTE this stay] Coding Level of Care Code Acute Chg FW NE note Diagnoses Community acquired pneumonia J18.9 Hypothyroidism E03.9 COPD (chronic obstructive pulmonary disease) J44.9 History of mitral valve prosthesis Z95.2 Heart failure I50.9 Pacemaker Z95.0
--- NOTE | 2022-09-06 12:51 | PC.SOCIAL ---
Patient's grandson called and states that patient was suppose to be discharged with a pulmicort flexhaler and he states that he didn't get that, he spoke to [facility] and they told him they never got the order. CM called [facility] who states that they did get the order and submitted for a PA but it wasn't covered by insurance and that the cost was $277.94. CM called [facility] and was quoted $13-15 since it is a 340B medication. CM called order into the [facility]. CM contact pepper Marinelli back and let him know that [facility] was filling the medications and updated him of what [facility] told CM. Patient's grandson is going to come meat pickler medication for patient.
== END 2022-08-29 14:06 | disposition home or self-care (01) | DRG 193 ==
LOC: ER 13:49 → MEDSURG 14:30
PROVIDERS: Admitting Provider Internal Medicine; Emergency Provider Family Medicine; PCP Family Medicine; Visit Provider Internal Medicine
DX: J18.9 Pneumonia, unspecified organism (principal); I50.23 Acute on chronic systolic (congestive) heart failure; J44.0 Chronic obstructive pulmonary disease with (acute) lower respiratory infection; J44.1 Chronic obstructive pulmonary disease with (acute) exacerbation; Z95.810 Presence of automatic (implantable) cardiac defibrillator; E03.9 Hypothyroidism, unspecified; Z95.3 Presence of xenogenic heart valve; E78.00 Pure hypercholesterolemia, unspecified; B95.2 Enterococcus as the cause of diseases classified elsewhere; Z79.01 Long term (current) use of anticoagulants; Z79.891 Long term (current) use of opiate analgesic; Z79.51 Long term (current) use of inhaled steroids
CPT/HCPCS: 36415; 71045; 80051; 80053; 80162; 82330; 82805; 83735; 83880; 84145; 84443; 84484; 85025; 85610; 86403; 87040; 87070; 87205; 87449; 87486; 87581; 87633; 87641; 93005; 93306; 94640; 94760; 96365; 96375; 99285; J0456; J0696; J1940; J1956; J2920; J7050; J7608

== ENCOUNTER 2022-11-11 13:49 | Outpatient (CLI) | payer MEDICARE, OTHER, SELFPAY ==
--- NOTE | 2022-11-11 14:03 | CT_ITS ---
WS: [id number] LDCT LUNG CANCER SCREENING TECHNIQUE: Noncontrast CT of the chest with coronal and sagittal reformatted images. CLINICAL INFORMATION: HISTORY OF TOBACCO USE COMPARISON: CT chest 2013 DLP: 78.97 mGy.cm DIvol: Mean CTDIvol: 1.60 (mGy) All CT scans at [facility] use at least one of these dose optimization techniques: automat ed exposure control; mA and/or kV adjustment per patient size (includes targeted exams where dose is matched to clinical indication); or iterative reconstruction. FINDINGS:Hazy fibrotic opacity in RIGHT upper lobe anteriorly measuring 1.8 cm. Adjacent nodular opac ity measuring 0.4 CM. Slight subsegmental atelectasis LEFT lower lobe with pleural thickening. Volume loss LEFT lower lobe. Chronic narrowing of the LEFT mainstem bronchus due to marked cardiomegaly.. N o mediastinal or hilar lymphadenopathy. No axillary lymphadenopathy. Thoracic kyphosis with hypertrop hic changes thoracic spine. Interstitial chronic appearing fibrotic changes in the LEFT greater than RIGHT lower lobes. Cardiomegaly. Chronic emphysematous changes. Cardiac pacer. Prominent LEFT ventricle. Aortic root gra ft. Dense mitral annular calcification. No significant pericardial effusion. Marked dilatation of the LEFT atrium with LEFT ventricular enlargement. Moderate esophageal hiatal hernia. Aortic arch calcification. Adrenal glands are normal. Partially visualized noncontrast spleen and gabriela er are unremarkable. Normal caliber upper abdominal aorta. Enlarged retrocrural lymph node measuring 1.7 cm is indeterminate but stable since 2013 CT/CT lung screening [id number] IMPRESSION: 1.8 cm hazy fibrotic opacity in the RIGHT upper lobe anteriorly wit h adjacent additional small nodular opacity measuring 0.4 cm. Recommend 6 month follow-up to confirm stability. LUNG-RADS: 3-Probably Benign FOLLOW UP: 6 Month LDCT
== END 2022-11-11 13:50 | disposition home or self-care (01) ==
PROVIDERS: PCP Family Medicine; Visit Provider Nurse Practitioner Family
DX: Z12.2 Encounter for screening for malignant neoplasm of respiratory organs (principal); Z87.891 Personal history of nicotine dependence
CPT/HCPCS: 71271

== ENCOUNTER 2023-01-15 07:39 | Emergency (ER) | payer MEDICARE, OTHER, SELFPAY ==
--- NOTE | 2023-01-15 07:49 | XRR_ITS ---
PROCEDURE INFORMATION: Exam: XR Chest Exam date and time: 01/15/2023 8:07 AM Age: 87 years old Clinical indication: Dyspnea; Prior surgery; Surgery type: Pacemaker TECHNIQUE: Imaging protocol: Radiologic exam of the chest. Views: 1 view. COMPARISON: CT lung screening [id number] 11/11/2022 2:09 PM FINDINGS: Tubes, catheters and devices: Left chest ICD. Lungs: Coarse reticular interstitial lung changes. Negative for pulmonary consolidation. Pleural spaces: Unremarkable. No pleural effusion. No pneumothorax. Heart/Mediastinum: Cardiomegaly. TAVR. Bones/joints: Negative for fracture. XR/XR chest 1V portable [id number] IMPRESSION: 1. Dilated cardiomyopathy. 2. No definite focal acute pulmonary disease identified.
--- NOTE | 2023-01-15 07:55 | W.ED.SOB ---
HPI - SOB/Dyspnea General: Chief Complaint: Shortness of Breath/Dyspnea Stated Complaint: Resp Distress Time Seen by Provider: 01/15/23 07:45 History of Present Illness: HPI Narrative: Patient presents to the ER by EMS with complaints of shortness of breath. Patient says he began to get short of breath about 2 to 3 days ago. This is progressively gotten worse. It became really bad last night. Patient denies any fever or chills. MD elicited complaint: shortness of breath and cough Pertinent past history: COPD Onset (ago): day(s) (Started about 3 days ago worse last night) Timing: constant and progressively worsening Severity: moderate Exacerbating factors: coughing Relieving factors: oxygen, bronchodilators and medication Known history of: COPD Associated symptoms: Reports cough; Deny abdominal pain, chest pain, nausea, palpitations or vomiting Treatment prior to arrival: oxygen, bronchodilator and other Related Data: Home oxygen amount: none Review of Systems General: Reports: 10 or more systems reviewed and unremarkable except in HPI and below Eyes: Denies: change in vision or blurry vision ENMT: Denies: throat pain or odynophagia Card: Denies: chest pain, palpitations or irregular heart rhythm Resp: Reports: dyspnea GI: Denies: abdominal pain, nausea, vomiting or diarrhea : Denies: flank pain, difficulty urinating or dysuria Musc: Denies: neck pain Skin/Breast: Denies: rash or pruritus Neuro: Denies: headache(s), numbness in extremities or weakness in extremities Psych: Denies: anxiety or depression PFS ED PFSH: Medical History Community acquired pneumonia COPD (chronic obstructive pulmonary disease) Heart failure High cholesterol Hypothyroidism No pertinent family history Pacemaker Pacemaker Surgical History History of mitral valve prosthesis Social History Smoking and tobacco status: never smoked Second hand smoke exposure: No Smoking risk assessment/counseling performed?: No Alcohol intake: never Substance/Drug Use: never Adopted: No Caregiver/support person: Yes Lives independently: No Household members: spouse Housing: House Marital status: Number of children: 3 Number of grandchildren: 5 Highest education level completed: High School Graduate service: No Current occupational status: retired Current occupational exposures/hazards: No Pets and animals: Yes Sexually active: Yes Do you think of yourself as: Straight/Heterosexual Current gender identity: Male Special felicia needs: No Agree to transfusion: Yes Physical Exam Const: COMMON NORMALS: average body habitus, patient oriented x3, healthy appearing, alert and well nourished HENMT: COMMON NORMALS: normocephalic, atraumatic, hearing grossly normal bilaterally, external ears normal and moist oral mucous membranes HEAD & SCALP: normocephalic and atraumatic EXTERNAL EAR: Yes external ears normal Eye: COMMON NORMALS: Equal, round and reactive pupils present, EOMs intact bilaterally, conjunctivae normal and no scleral icterus CONJUNCTIVA: Yes conjunctivae normal PUPIL: Yes Equal, round and reactive pupils present Neck/C-Spine: COMMON NORMALS: full ROM, no lymphadenopathy, supple, no meningeal signs, no JVD and Thyroid normal THYROID: Thyroid normal Resp: OTHER: Coarse rhonchi diffusely throughout all lobes. Cardio: COMMON NORMALS: no JVD, regular rate, regular rhythm, S1 normal heart sound present and S2 normal heart sound present RATE: regular rate RHYTHM: regular rhythm HEART SOUNDS: S1 normal heart sound present and S2 normal heart sound present GI: COMMON NORMALS: Normal to inspection, nondistended, normoactive bowel sounds present, Soft to palpation, non-tender, No hepatosplenomegaly present and no masses PALPATION: Yes Soft to palpation and Yes No hepatosplenomegaly present : COMMON NORMALS: Yes no CVA tenderness BLADDER/KIDNEY EXAM: Yes no CVA tenderness Back/Pelvis: COMMON NORMALS: no CVA tenderness Extremity: COMMON NORMALS: normal to inspection, no clubbing, cyanosis or edema, no calf tenderness and no pedal edema Neuro: COMMON NORMALS: patient oriented x3 SENSORIUM/ORIENTATION: Yes alert MENINGEAL SIGNS: Yes no meningeal signs Course Vital Signs: Vital signs: Vital Signs Temperature 97.6 F 01/15/23 07:58 Pulse Rate 75 01/15/23 09:30 Respiratory Rate 21 H 01/15/23 07:58 Blood Pressure 161/83 01/15/23 07:58 Pulse Oximetry 95 01/15/23 09:30 Oxygen Delivery Me thod Nasal Cannula 01/15/23 09:30 Oxygen Flow Rate 5 01/15/23 09:30 MDM - SOB/Dyspnea Medical Decision Making Patient presents to the ER by EMS with complaints of shortness of breath. Patient was initially on 5 L of oxygen per nasal cannula but was weaned down to room air. Patient maintain a sat of about 90% on room air portable home oxygen study was ordered which patient failed. Patient will be placed on 2 L/min per nasal cannula continuous with portability and conserving device. Labs were reviewed which showed patient was positive for human metapneumovirus. Patient will be placed on oral prednisone and discharged home on oxygen. Differential Diagnosis Likely acute exacerbation of chronic obstructive airways disease and community acquired pneumonia; Unlikely congestive heart failure, asthma with exacerbation or pulmonary embolism Medical Records I reviewed the patient's medical records. Lab Data 01/15/23 08:05 01/15/23 08:05 Labs/Radiology: Radiology Impressions Chest X-Ray 01/15/23 07:49 IMPRESSION: 1. Dilated cardiomyopathy. 2. No definite focal acute pulmonary disease identified. Laboratory Results WBC 15.2 10^3/uL (4.0-10.0) H 01/15/23 08:05 RBC 4.12 10^6/uL (4.1-5.3) 01/15/23 08:05 Hgb 12.3 g/dL (11.7-16.6) 01/15/23 08:05 Hct 38.8 % (42.0-52.0) L 01/15/23 08:05 MCV 94.2 fl (80-94) H 01/15/23 08:05 MCH 29.9 pg (28.0-34.0) 01/15/23 08:05 MCHC 31.7 g/dL (30.0-36.0) 01/15/23 08:05 RDW 14.5 % (12.1-15.1) 01/15/23 08:05 Plt Count 227 10^3/cmm (130-400) 01/15/23 08:05 MPV 10.9 fL (7.4-10.4) H 01/15/23 08:05 Neut % (Auto) 75.9 % 01/15/23 08:05 Lymph % (Auto) 13.9 % 01/15/23 08:05 [place] % (Auto) 9.5 % 01/15/23 08:05 Eos % (Auto) 0.1 % 01/15/23 08:05 Baso % (Auto) 0.1 % 01/15/23 08:05 Neut # (Auto) 11.55 10^3/uL (1.8-7.7) H 01/15/23 08:05 Lymph # (Auto) 2.1 10^3/uL (0.8-4.8) 01/15/23 08:05 [place] # (Auto) 1.5 10^3/uL (0.2-0.9) H 01/15/23 08:05 Eos # (Auto) 0.0 10^3/uL (0.0-0.8) 01/15/23 08:05 Baso # (Auto) 0.0 10^3/uL (0.0-0.1) 01/15/23 08:05 Nucleated RBC % (auto) 0 % 01/15/23 08:05 Nucleated RBCs # 0.0 /100WBC 01/15/23 08:05 PT 28.60 SECONDS (12.1-14.9) H 01/15/23 08:05 INR 2.58 (0.8-1.2) H 01/15/23 08:05 Sodium 136 mmol/L (136-145) 01/15/23 08:05 Potassium 3.2 mmol/L (3.5-5.1) L 01/15/23 08:05 Chloride 98 mmol/L (98-107) 01/15/23 08:05 Carbon Dioxide 25 mmol/L (22-29) 01/15/23 08:05 Anion Gap 16.2 (5-19) 01/15/23 08:05 BUN 24 mg/dL (8-23) H 01/15/23 08:05 Creatinine 0.9 mg/dL (0.7-1.2) 01/15/23 08:05 GFR Calculation Not Reportable 01/15/23 08:05 Glucose 101 mg/dL (65-115) 01/15/23 08:05 Calculated Osmolality 286 mOsm/kg (285-295) 01/15/23 08:05 Lactic Acid 3.5 mmol/L (0.5-2.2) H 01/15/23 08:05 Calcium 8.8 mg/dL (8.5-10.5) 01/15/23 08:05 Magnesium 2.0 mg/dL (1.7-2.3) 01/15/23 08:05 Total Bilirubin 1.1 mg/dL (0.15-1.2) 01/15/23 08:05 AST 26 U/L (0-40) 01/15/23 08:05 ALT 28 U/L (0-41) 01/15/23 08:05 Alkaline Phosphatase 69 U/L (40-130) 01/15/23 08:05 Total Protein 7.0 g/dL (6.6-8.7) 01/15/23 08:05 Albumin 4.0 g/dL (3.5-5.2) 01/15/23 08:05 Globulin 3.0 g/dL (1.3-4.6) 01/15/23 08:05 Procalcitonin 0.04 ng/mL (0-0.5) 01/15/23 08:05 Nasal Influ A H1 2009 PCR Not detected (NOT DETECT) 01/15/23 08:05 Digoxin 1.0 ng/mL (0.6-1.2) 01/15/23 08:05 Adenovirus (PCR) Not detected (NOT DETECT) 01/15/23 08:05 C. pneumoniae DNA (PCR) Not detected (NOT DETECT) 01/15/23 08:05 Coronavirus 229E (PCR) Not detected (NOT DETECT) 01/15/23 08:05 Human Metapneumovir PCR Detected (NOT DETECT) A 01/15/23 08:05 Influenza A (H1) PCR Not detected (NOT DETECT) 01/15/23 08:05 Influenza A (H3) PCR Not detected (NOT DETECT) 01/15/23 08:05 Influenza Type A (PCR) Not detected (NOT DETECT) 01/15/23 08:05 Influenza Type B (PCR) Not detected (NOT DETECT) 01/15/23 08:05 M. pneumoniae (PCR) Not detected (NOT DETECT) 01/15/23 08:05 Parainfluenza 1 (PCR) Not detected (NOT DETECT) 01/15/23 08:05 Parainfluenza 2 (PCR) Not detected (NOT DETECT) 01/15/23 08:05 Parainfluenza 3 (PCR) Not detected (NOT DETECT) 01/15/23 08:05 Parainfluenza 4 (PCR) Not detected (NOT DETECT) 01/15/23 08:05 RSV Type A (PCR) Not detected (NOT DETECT) 01/15/23 08:05 RSV Type B (PCR) Not detected (NOT DETECT) 01/15/23 08:05 Entero/Rhino (PCR) Not detected (NOT DETECT) 01/15/23 08:05 SARS-CoV-2 (PCR) Not detected (NOT DETECT) 01/15/23 08:05 EKG Data EKG 1: I personally reviewed and interpreted this EKG as follows: EKG Interpretation Date: 01/15/23 EKG interpretation time: 07:52 Prior EKG tracings: not available for review Interpretation: EKG showed electronic ventricular pacemaker with a ventricular rate of 79 bpm, QRS duration 206, QTc of 479, Discharge Plan Discharge Patient Disposition: Home Clinical Impression: Acute exacerbation of chronic obstructive airways disease, Acute bronchiolitis due to human metapneumovirus, Hypoxia Condition: Stable Prescriptions: New prednisone 50 mg tablet 50 mg PO DAILY 5 Days Qty: 5 0RF No Action warfarin 5 mg tablet See Rx Instructions .ROUTE .COMPLEX Rx Instructions: 5MG PO AT NIGHT ON TUE AND TUE 2.5MG PO AT NIGHT ON TUE,,TUE,TH,SAT digoxin 125 mcg (0.125 mg) tablet 125 mcg PO DAILY lovastatin 40 mg tablet 40 mg PO DAILY amiodarone 200 mg tablet See Rx Instructions .ROUTE .COMPLEX Rx Instructions: 200 mg orally TUESDAY THROUGH TUESDAY omeprazole 40 mg capsule,delayed release(DR/EC) 40 mg PO DAILY tramadol 50 mg tablet 50 mg PO QAM albuterol sulfate 2.5 mg /3 mL (0.083 %) Solution For Nebulization 2.5 mg INHALATION Q4H PRN (Reason: Shortness Of Breath) metoprolol succinate 25 mg tablet extended release 24 hr 12.5 mg PO DAILY levothyroxine 100 mcg tablet 100 mcg PO DAILY acetaminophen 500 mg Tablet 500 mg PO QAM Rx Instructions: TAKES WITH ULTRAM magnesium 250 mg Tablet 250 mg PO DAILY albuterol sulfate 90 mcg/actuation Hfa Aerosol Inhaler 2 puff INHALATION QID PRN (Reason: Shortness Of Breath) furosemide 20 mg Tablet 40 mg PO QAM 30 Days Qty: 30 0RF Pulmicort Flexhaler 180 mcg/actuation aerosol powdr breath activated 1 inh inhalation BID Qty: 1 0RF K-Tab 10 mEq tablet extended release 20 meq PO DAILY Qty: 30 0RF Proventil HFA 90 mcg/actuation HFA aerosol inhaler 1 inh inhalation Q6H PRN (Reason: shortness of breath or wheezing) Qty: 6.7 1RF Discharge Orders: Discharge ED (Routine); Ordered 01/15/23 Ordered By: Layo Weiss Other Ambulatory Orders: DME: Oxygen (Order) Location: None Selected Ordered By: Layo Weiss Referrals: Sun Cox MD [Primary Care Provider] - 1 week Patient Instructions: COPD (Chronic Obstructive Pulmonary Disease) (DC) Activity Restrictions/Additional Instructions: Please take all your medicines as instructed, please use oxygen as needed, please follow-up with your family practice doc within the next 1 to 2 weeks. Coding Level of Care Code ED Director [employer] Database for Alexandria Burns
[2023-01-15 07:58] VITALS: BP 161/83; PULSE 75; RESP 21; TEMP 36.4; O2SAT 93
[2023-01-15 08:11] VITALS: O2SAT 93
[2023-01-15 08:26] LABS: Basophils % 0.1 %; Eosinophils % 0.1 %; Hematocrit 38.8 % (42.0-52.0); Hemoglobin 12.3 g/dL (11.7-16.6); Lymphocytes # 2.1 10^3/uL (0.8-4.8); Lymphocytes % 13.9 %; Mean Corpuscular HGB Conc 31.7 g/dL (30.0-36.0); Mean Corpuscular Hemoglobin 29.9 pg (28.0-34.0); Mean Corpuscular Volume 94.2 fl (80-94); Mean Platelet Volume 10.9 fL (7.4-10.4); Monocytes # 1.5 10^3/uL (0.2-0.9); Monocytes % 9.5 %; Neutrophils # 11.55 10^3/uL (1.8-7.7); Neutrophils % 75.9 %; Nucleated Red Blood Cells % 0 %; Platelet Count 227 10^3/cmm (130-400); Red Blood Count 4.12 10^6/uL (4.1-5.3); Red Cell Distribution Width 14.5 % (12.1-15.1); White Blood Count 15.2 10^3/uL (4.0-10.0)
[2023-01-15 08:44] LABS: Alanine Aminotransferase 28 U/L (0-41); Alkaline Phosphatase 69 U/L (40-130); Anion Gap 16.2 (5-19); Aspartate Amino Transferase 26 U/L (0-40); Blood Urea Nitrogen 24 mg/dL (8-23); Calcium 8.8 mg/dL (8.5-10.5); Carbon Dioxide 25 mmol/L (22-29); Chloride 98 mmol/L (98-107); Glucose 101 mg/dL (65-115); Osmolality Calculated 286 mOsm/kg (285-295); Potassium 3.2 mmol/L (3.5-5.1); Sodium 136 mmol/L (136-145); Total Bilirubin 1.1 mg/dL (0.15-1.2)
[2023-01-15 08:46] LABS: Lactic Sepsis W/Reflex 3.5 mmol/L (0.5-2.2)
[2023-01-15 08:49] LABS: INR 2.58 (0.8-1.2)
[2023-01-15 08:52] LABS: Procalcitonin 0.04 ng/mL (0-0.5)
[2023-01-15 09:30] VITALS: PULSE 75; O2SAT 95
[2023-01-15 10:06] LABS: Adenovirus Not Detected (NOT DETECT); Chlamydia Pneumoniae Not Detected (NOT DETECT); Coronavirus 229E,HKU1,NL63,OC4 Not Detected (NOT DETECT); Human Metapneumovirus Detected (NOT DETECT); Human Rhinovirus/Enterovirus Not Detected (NOT DETECT); Influenza A Not Detected (NOT DETECT); Influenza A H1 Not Detected (NOT DETECT); Influenza A H1-2009 Not Detected (NOT DETECT); Influenza A H3 Not Detected (NOT DETECT); Influenza B Not Detected (NOT DETECT); Mycoplasma Pneumoniae Not Detected (NOT DETECT); Parainfluenza Virus Type 1 Not Detected (NOT DETECT); Parainfluenza Virus Type 2 Not Detected (NOT DETECT); Parainfluenza Virus Type 3 Not Detected (NOT DETECT); Parainfluenza Virus Type 4 Not Detected (NOT DETECT); Respiratory Syncytial Virus A Not Detected (NOT DETECT); Respiratory Syncytial Virus B Not Detected (NOT DETECT); SARS-COV-2 Not Detected (NOT DETECT)
[2023-01-15 10:07] LABS: Reflex Lactate Order REFLEX LACTIC ORDERD
[2023-01-15] MEDS: sodium chloride 0.9% 1,000 ML 999 ML IV (10:45)
[2023-01-15 11:36] LABS: Lactic Acid level (Lactate) 2.5 mmol/L (0.5-2.2)
== END 2023-01-15 12:17 | disposition home or self-care (01) ==
PROVIDERS: Emergency Provider Emergency Medicine; PCP Family Medicine
DX: J44.1 Chronic obstructive pulmonary disease with (acute) exacerbation (principal); J21.1 Acute bronchiolitis due to human metapneumovirus; R09.02 Hypoxemia; Z79.01 Long term (current) use of anticoagulants; Z20.822 Contact with and (suspected) exposure to COVID-19; Z95.0 Presence of cardiac pacemaker
CPT/HCPCS: 36415; 71045; 80053; 80162; 83605; 83735; 84145; 85025; 85610; 87040; 87486; 87581; 87633; 99285; J7030

== ENCOUNTER 2023-05-09 08:57 | Outpatient (CLI) | payer MEDICARE, OTHER, SELFPAY ==
--- NOTE | 2023-05-09 09:08 | CT_ITS ---
WS: [id number] LDCT LUNG CANCER SCREENING TECHNIQUE: Noncontrast CT of the chest with coronal and sagittal reformatted images. CLINICAL INFORMATION: HX OF TOBACCO USE COMPARISON: 2022 DLP: 63.59 mGy.cm DIvol: Mean CTDIvol: 1.30 (mGy) All CT scans at [facility] use at least one of these dose optimization techniques: automat ed exposure control; mA and/or kV adjustment per patient size (includes targeted exams where dose is matched to clinical indication); or iterative reconstruction. FINDINGS: Hazy fibrotic opacity in RIGHT upper lobe anteriorly measuring 1.8 cm unchanged. Adjacent nodular o pacity measuring 4 to 5 mm unchanged. No evidence of progression. No other suspicious parenchymal opa cities. Slight subsegmental atelectasis LEFT lower lobe with pleural thickening. Chronic narrowing of the LEF T mainstem bronchus due to marked cardiomegaly. No mediastinal or hilar lymphadenopathy. No axillary lymphadenopathy. Moderate to large esophageal hiatal hernia with air-fluid levels in the thoracic eso phagus with achalasia. Aortic arch calcification. Adrenal glands are normal. Enlarged retrocrural lymph node measuring 1.7 cm is indeterminate but stab le since 2013. Thoracic kyphosis with hypertrophic changes thoracic spine. Cardiomegaly. Chronic emphysematous post es. Cardiac pacer. Aortic root graft. Dense mitral annular calcification. Marked dilatation of the LE FT atrium with LEFT ventricular enlargement. IMPRESSION: CT/CT lung screening [id number] LUNG-RADS: 2-Benign Appearance or Behavior FOLLOW UP: 12 Month: Continue annual screening with LDCT
== END 2023-05-09 08:58 | disposition home or self-care (01) ==
PROVIDERS: PCP Family Medicine; Visit Provider Nurse Practitioner Family
DX: Z12.2 Encounter for screening for malignant neoplasm of respiratory organs (principal); Z87.891 Personal history of nicotine dependence
CPT/HCPCS: 71271

== ENCOUNTER 2024-04-20 11:01 | Outpatient (CLI) | payer MEDICARE, OTHER, SELFPAY ==
--- NOTE | 2024-04-20 11:17 | XR_ITS ---
WS: [id number] CHEST 2 VIEWS HISTORY: COPD COMPARISON: 01/15/2023 LEFT subclavian pacer/defibrillator. Lungs: No pneumonia or consolidation. Mild flattening of the diaphragms. Cardiac size: Severe cardiomegaly, similar to the prior study. Atherosclerosis thoracic aorta. Mediastinum/Aorta: Short graft at the region of the aortic valve and proximal ascending aorta. Bones: Advanced degenerative changes at the LEFT glenohumeral joint. Bone upon bone with osteophytosi s. XR/XR chest 2V* [id number] IMPRESSION: 1. Marked cardiomegaly similar to the prior study. 2. 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 3. No pneumonia. Chronic emphysema.
== END 2024-04-20 11:02 | disposition home or self-care (01) ==
LOC: RAD 11:08
PROVIDERS: PCP Family Medicine; Visit Provider Internal Medicine Interventional Cardiology
DX: J44.9 Chronic obstructive pulmonary disease, unspecified (principal); I48.21 Permanent atrial fibrillation; I34.0 Nonrheumatic mitral (valve) insufficiency; Z79.899 Other long term (current) drug therapy; I51.7 Cardiomegaly; J43.9 Emphysema, unspecified; Z95.828 Presence of other vascular implants and grafts
CPT/HCPCS: 71046

== ENCOUNTER 2024-04-26 16:55 | Inpatient (IN) | payer MEDICARE, OTHER, SELFPAY ==
[2024-04-26] VITALS (9 sets, daily range): BP systolic 120–167; BP diastolic 68–104; PULSE 71–79; RESP 18–24; TEMP 37.1–37.2; O2SAT 95–98; BMI 25.8
--- NOTE | 2024-04-26 16:58 | XRR_ITS ---
PROCEDURE INFORMATION: Exam: XR Chest Exam date and time: 04/26/2024 5:21 PM Age: 88 years old Clinical indication: Dyspnea; Additional info: SOB, TECHNIQUE: Imaging protocol: Radiologic exam of the chest. Views: 1 view. COMPARISON: CR XR chest 2V* [id number] 04/20/2024 11:22 AM FINDINGS: Tubes, catheters and devices: Stable intact pacemaker/AICD hardware. Lungs: Unremarkable. No consolidation. Pleural spaces: Unremarkable. No pleural effusion. No pneumothorax. Heart/Mediastinum: There is stable enlargement of the cardiac silhouette. Bones/joints: Unremarkable. XR/XR chest 1V portable [id number] IMPRESSION: No acute findings.
--- NOTE | 2024-04-26 16:59 | ECG_ITS ---
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
[2024-04-26 17:26] LABS: Basophils # 0.1 10^3/uL (0.0-0.1); Basophils % 0.4 %; Eosinophils % 0.2 %; Hematocrit 36.6 % (37-53); Lymphocytes # 0.8 10^3/uL (0.8-4.8); Lymphocytes % 6.5 %; Mean Corpuscular Hemoglobin 30.6 pg (27-33); Mean Corpuscular Volume 95.8 fl (82-101); Mean Platelet Volume 10.8 fL (7.4-10.4); Monocytes % 7.8 %; Neutrophils # 10.81 10^3/uL (1.8-7.7); Neutrophils % 84.8 %; Nucleated Red Blood Cells % 0 %; Platelet Count 187 10^3/cmm (157-399); Red Blood Count 3.82 10^6/uL (3.85-5.65); Red Cell Distribution Width 15.8 % (12.1-15.1); White Blood Count 12.75 10^3/uL (3.29-11.43)
--- NOTE | 2024-04-26 17:30 | ED_ITS ---
HPI - SOB/Dyspnea 2 General: Chief Complaint: Shortness of Breath/Dyspnea Stated Complaint: sob Time Seen by Provider: 04/26/24 16:57 Source: patient and EMS Mode of arrival: EMS Limitations: no limitations History of Present Illness: HPI Narrative: 88-year-old male long history of COPD st ates he has been having increasing shortness of breath for the last 3 days. He states he has had a cough along with low-grade fevers as well. He wears 2 L of oxygen at home for his COPD patient's pulse ox here is 95% on his 2 L. He denies any pains denies any vomiting. Associated symptoms: Reports fever(s); Deny abdominal pain, chest pain, nausea or vomiting Review of Systems 2 Const: Reports: fever(s); Denies: chills, body aches or change in appetite ENMT: Denies: throat pain or dental pain Card: Denies: chest pain Resp: Reports: dyspnea and productive cough GI: Denies: abdominal pain, nausea, vomiting or diarrhea Musc: Denies: neck pain or back pain Skin/Breast: Denies: rash Neuro: Denies: headache(s) PFSH ED 2 PFSH: Medical History Heart failure Community acquired pneumonia Pacemaker Hypothyroidism High cholesterol COPD (chronic obstructive pulmonary disease) No pertinent family history Pacemaker Surgical History History of mitral valve prosthesis Social History Smoking and tobacco/nicotine status: never used tobacco/nicotine Second hand smoke exposure: No Alcohol intake: never Substance/Drug Use: never Adopted: No Caregiver/support person: Yes Lives independently: No Household members: spouse Housing: House Marital status: Number of children: 3 Number of grandchildren: 5 Highest education level completed: High School Graduate service: No Current occupational status: retired Current occupational exposures/hazards: No Pets and animals: Yes Sexually active: Yes Do you think of yourself as: Straight/Heterosexual Current gender identity: Male Special felicia needs: No Agree to transfusion: Yes Physical Exam 2 Const: COMMON NORMALS: patient oriented x3 and healthy appearing HENMT: COMMON NORMALS: normocephalic and atraumatic HEAD & SCALP: n ormocephalic and atraumatic Eye: COMMON NORMALS: Equal, round and reactive pupils present PUPIL: Yes Equal, round and reactive pupils present Neck/C-Spine: COMMON NORMALS: full ROM and supple Chest: COMMONS NORMALS: normal inspection of the chest Resp: COMMON NORMALS: No retractions AUSCULTATION: crackles and rales Cardio: COMMON NORMALS: regular rate, regular rhythm and No murmurs present (Cardio) RATE: regular rate RHYTHM: regular rhythm GI: COMMON NORMALS: Normal to inspection, nondistended, normoactive bowel sounds present, Soft to palpation, non-tender and no masses PALPATION: Yes Soft to palpation Extremity: COMMON NORMALS: normal to inspection and full ROM Neuro: COMMON NORMALS: patient oriented x3, moves all extremities and no focal motor deficits Psych: COMMON NORMALS: mental status grossly normal, Normal thought process present and cooperative THOUGHT PROCESS: Normal thought process present Skin: COMMON NORMALS: no rashes or lesions noted and no wounds GENERAL SKIN EXAM: no rashes or lesions noted Course 2 Vital Signs: Vital signs: Vital Signs Temperature 98.7 F 04/26/24 17:18 Pulse Rate 75 04/26/24 17:58 Respiratory Rate 24 H 04/26/24 17:50 Blood Pressure 120/68 04/26/24 17:45 Pulse Oximetry 96 04/26/24 17:50 Oxygen Delivery Me thod Nasal Cannula 04/26/24 17:50 Oxygen Flow Rate 1 04/26/24 17:50 MDM - SOB/Dyspnea Medical Decision Making Patient presents here with shortness of breath he does have an elevated BNP likely CHF and COPD exacerbation he had a cough and fever at home will get blood cultures start antibiotics did give him Lasix and a breathing treatment spoke to the hospitalist will admit for observation Medical Records I reviewed the patient's medical records. Lab Data I reviewed the patient's lab results. 04/26/24 17:10 04/26/24 17:10 Labs/Radiology: Radiology Impressions Chest X-Ray 04/26/24 16:58 IMPRESSION: No acute findings. Laboratory Results WBC 12.75 10^3/uL (3.29-11.43) H 04/26/24 17:10 RBC 3.82 10^6/uL (3.85-5.65) L 04/26/24 17:10 Hgb 11.70 g/dL (11.27-16.99) 04/26/24 17:10 Hct 36.6 % (37-53) L 04/26/24 17:10 MCV 95.8 fl (82-101) 04/26/24 17:10 MCH 30.6 pg (27-33) 04/26/24 17:10 MCHC 32.0 g/dL (30-55) 04/26/24 17:10 RDW 15.8 % (12.1-15.1) H 04/26/24 17:10 Plt Count 187 10^3/cmm (157-399) 04/26/24 17:10 MPV 10.8 fL (7.4-10.4) H 04/26/24 17:10 Neut % (Auto) 84.8 % 04/26/24 17:10 Lymph % (Auto) 6.5 % 04/26/24 17:10 [place] % (Auto) 7.8 % 04/26/24 17:10 Eos % (Auto) 0.2 % 04/26/24 17:10 Baso % (Auto) 0.4 % 04/26/24 17:10 Neut # (Auto) 10.81 10^3/uL (1.8-7.7) H 04/26/24 17:10 Lymph # (Auto) 0.8 10^3/uL (0.8-4.8) 04/26/24 17:10 [place] # (Auto) 1.0 10^3/uL (0.2-0.9) H 04/26/24 17:10 Eos # (Auto) 0.0 10^3/uL (0.0-0.8) 04/26/24 17:10 Baso # (Auto) 0.1 10^3/uL (0.0-0.1) 04/26/24 17:10 Nucleated RBC % (auto) 0 % 04/26/24 17:10 Nucleated RBCs # 0.0 /100WBC 04/26/24 17:10 PT 32.70 SECONDS (12.1-14.9) H 04/26/24 17:10 INR 3.05 (0.8-1.2) H 04/26/24 17:10 Sodium 140 mmol/L (136-145) 04/26/24 17:10 Potassium 4.6 mmol/L (3.5-5.1) 04/26/24 17:10 Chloride 101 mmol/L (98-107) 04/26/24 17:10 Carbon Dioxide 27 mmol/L (22-29) 04/26/24 17:10 Anion Gap 16.6 (5-19) 04/26/24 17:10 BUN 17 mg/dL (8-23) 04/26/24 17:10 Creatinine 1.2 mg/dL (0.7-1.2) 04/26/24 17:10 GFR Calculation Not Reportable 04/26/24 17:10 Glucose 121 mg/dL (65-115) H 04/26/24 17:10 Calculated Osmolality 293 mOsm/kg (285-295) 04/26/24 17:10 Calcium 9.1 mg/dL (8.5-10.5) 04/26/24 17:10 Total Bilirubin 1.6 mg/dL (0.15-1.2) H 04/26/24 17:10 AST 20 U/L (0-40) 04/26/24 17:10 ALT 17 U/L (0-41) 04/26/24 17:10 Alkaline Phosphatase 87 U/L (40-130) 04/26/24 17:10 NT-Pro-B Natriuret Pep 6955 pg/mL (0-450) H 04/26/24 17:10 Total Protein 7.6 g/dL (6.6-8.7) 04/26/24 17:10 Albumin 4.4 g/dL (3.5-5.2) 04/26/24 17:10 Globulin 3.2 g/dL (1.3-4.6) 04/26/24 17:10 SARS-CoV-2 Ag (Rapid) negative (Negative) 04/26/24 17:40 All radiology interpretation(s) finalized by discharge Discharge Plan Discharge Patient Disposition: Placed in Observation Clinical Impression: Acute exacerbation of chronic obstructive airways disease, Congestive heart failure Condition: Stable Prescriptions: No Action warfarin 5 mg tablet See Rx Instructions .ROUTE .COMPLEX Rx Instructions: 5MG PO AT NIGHT ON MON AND FRI 2.5MG PO AT NIGHT ON SUN,,TUE,,SAT digoxin 125 mcg (0.125 mg) tablet 125 mcg PO DAILY lovastatin 40 mg tablet 40 mg PO DAILY amiodarone 200 mg tablet See Rx Instructions .ROUTE .COMPLEX Rx Instructions: 200 mg orally TUESDAY THROUGH TUESDAY omeprazole 40 mg capsule,delayed release(DR/EC) 40 mg PO DAILY tramadol 50 mg tablet 50 mg PO QAM albuterol sulfate 2.5 mg /3 mL (0.083 %) Solution For Nebulization 2.5 mg INHALATION Q4H PRN (Reason: Shortness Of Breath) metoprolol succinate 25 mg tablet extended release 24 hr 12.5 mg PO DAILY levothyroxine 100 mcg tablet 100 mcg PO DAILY acetaminophen 500 mg Tablet 500 mg PO QAM Rx Instructions: TAKES WITH ULTRAM magnesium 250 mg Tablet 250 mg PO DAILY albuterol sulfate 90 mcg/actuation Hfa Aerosol Inhaler 2 puff INHALATION QID PRN (Reason: Shortness Of Breath) furosemide 20 mg Tablet 40 mg PO QAM 30 Days Qty: 30 0RF Pulmicort Flexhaler 180 mcg/actuation aerosol powdr breath activated 1 inh inhalation BID Qty: 1 0RF K-Tab 10 mEq tablet extended release 20 meq PO DAILY Qty: 30 0RF Proventil HFA 90 mcg/actuation HFA aerosol inhaler 1 inh inhalation Q6H PRN (Reason: shortness of breath or wheezing) Qty: 6.7 1RF Referrals: Sun Cox MD [Primary Care Provider] - Coding Level of Care Code ED Group Home Worker for Alexandria Burns
[2024-04-26] MEDS: albuterol 2.5 mg/3 mL Neb 5 MG INHALATION (17:48)
[2024-04-26 17:54] LABS: INR 3.05 (0.8-1.2)
[2024-04-26 18:08] LABS: Alanine Aminotransferase 17 U/L (0-41); Albumin Level 4.4 g/dL (3.5-5.2); Alkaline Phosphatase 87 U/L (40-130); Anion Gap 16.6 (5-19); Aspartate Amino Transferase 20 U/L (0-40); Blood Urea Nitrogen 17 mg/dL (8-23); Calcium 9.1 mg/dL (8.5-10.5); Carbon Dioxide 27 mmol/L (22-29); Chloride 101 mmol/L (98-107); Creatinine Clr Calc Pharmacy 44.9278; Globulin 3.2 g/dL (1.3-4.6); Glucose 121 mg/dL (65-115); NT Pro B Type Natriuretic Pept 6955 pg/mL (0-450); Osmolality Calculated 293 mOsm/kg (285-295); Potassium 4.6 mmol/L (3.5-5.1); Sodium 140 mmol/L (136-145); Total Bilirubin 1.6 mg/dL (0.15-1.2); Total Protein 7.6 g/dL (6.6-8.7)
[2024-04-26 18:30] LABS: SARS Covid-2 Antigen negative (Negative)
--- NOTE | 2024-04-26 18:41 | CTR_ITS ---
PROCEDURE INFORMATION: Exam: CT Chest Without Contrast; Diagnostic Exam date and time: 04/26/2024 7:04 PM Age: 88 years old Clinical indication: Shortness of breath; Prior surgery; Surgery date: 6+ months; Surgery type: Pacer TECHNIQUE: Imaging protocol: Diagnostic computed tomography of the chest without contrast. Radiation optimization: All CT scans at this facility use at least one of these dose optimization techniques: automated exposure control; mA and/or kV adjustment per patient size (includes targeted exams where dose is matched to clinical indication); or iterative reconstruction. COMPARISON: CT lung screening [id number] 05/09/2023 9:21 AM RADIATION DOSE METRICS: Total DLP (mGy-cm): 473 FINDINGS: Tubes, catheters and devices: Left pectoral AICD pacer with leads terminating within the right ventricle and coronary sinus. Trachea: Central airways are patent. Lungs: No focal consolidations or pulmonary edema. Emphysema. Pleural spaces: No pneumothorax. No pleural effusion. Heart: Status post TAVR. Severe cardiomegaly. Small pericardial effusion. Coronary arteries: Coronary artery calcifications. Lymph nodes: Unchanged enlarged retrocrural lymph node measuring approximately 2.0 x 1.5 cm in long and short axis (series 3, image 56). Vasculature: Severe atherosclerotic calcifications. Diaphragm: Moderately sized hiatal hernia. The distal esophagus is dilated with air-fluid levels. Bones/joints: Unremarkable. No acute fracture. Soft tissues: Unremarkable. CT/CT chest wo con [id number] IMPRESSION: 1. No focal consolidations or pulmonary edema. 2. Severe cardiomegaly and unchanged small pericardial effusion. 3. Moderately sized hiatal hernia with dilation of the distal esophagus. Findings can be correlated with esophagram if clinically indicated.
--- NOTE | 2024-04-26 18:41 | USCV_ITS ---
Memo Salazar Age: 88 Gender: M : 1935 Exam Date: 04/26/2024 19:05 Ordering Phys: Rl Abraham MD Technologist: JEANA [place] [facility] [place] SOB COPD O2-dependent 2L, s/p pacer, s/p TAVR 2021, s/p MV repair. BP: 120 / 68 HR: 75 Rhythm: Paced rhythm with atrial fibrillation Technical Quality: Adequate MEASUREMENTS (Male / Female) Normal Values 2D ECHO LV Diastolic Diameter PLAX 7.0 cm 4.2 - 5.9 / 3.9 - 5.3 cm IVS Diastolic Thickness 1.6 cm 0.6 - 1.0 / 0.6 - 0.9 cm IVS Systolic Thickness 2.4 cm LVPW Diastolic Thickness 1.4 cm 0.6 - 1.0 / 0.6 - 0.9 cm LVPW Systolic Thickness 2.0 cm LVOT Diameter 2.7 cm LV Ejection Fraction 2D Teich 28.6 % LV Ejection Fraction MOD 4C 9.5 % LV Ejection Fraction MOD 2C 24.9 % LV Ejection Fraction 2C AL 27.2 % LA Diameter 8.5 cm Aorta at Sinotubular Diameter 3.3 cm IVC Diameter 2.4 cm M-MODE LA Ao Ratio MM 1.9 AV Cusp Separation MM 1.3 cm DOPPLER AV Peak Velocity 187.0 cm/s LVOT Peak Velocity 54.0 cm/s AV Area Cont Eq vti 1.9 cm squared AV Area Cont Eq pk 1.6 cm squared MV Peak Velocity 186.0 cm/s MV Area PHT 4.4 cm squared Mitral E to A Ratio 0.0 TV Peak Velocity 288.7 cm/s TR Peak Velocity 322.0 cm/s TR Peak Gradient 41.5 mmHg TV Peak E Velocity 70.0 cm/s Right Atrial Pressure 15.0 mmHg Pulmonary Artery Systolic Pressu 56.5 mmHg PV Peak Velocity 97.0 cm/s FINDINGS Left Ventricle Left ventricle is dilated. LV systolic function is severely reduced with EF of 10 to 15%. Severe global hypokinesis. Right Ventricle Normal in size and function Right Atrium Dilated. Pacemaker lead is seen. Left Atrium Severely dilated Mitral Valve Severe mitral annular calcification. Moderate to severe mitral regurgitation. Aortic Valve Bioprosthetic aortic valve in place. No significant stenosis or regurgitation. Tricuspid Valve Moderate tricuspid regurgitation. RVSP is 55 to 60 mmHg. This is consistent with moderate pulmonary hypertension Pulmonic Valve Not well visualized Pericardium Normal Aorta Mildly dilated ascending aorta with diameter of 3.53cm IVC Appears to be dilated CONCLUSIONS LV systolic function is severely reduced with EF of 10 to 15%. Biatrial enlargement. 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 No significant stenosis. Moderate tricuspid regurgitation Moderate pulmonary hypertension Mildly dilated ascending aorta with diameter 3.53 cm. Compared to prior echocardiogram from 2021, LV systolic function has decreased significantly. Charlie Zurita MD (Electronically Signed) Final Date: 27 April 2024 09:29 S
[2024-04-26] MEDS: cefTRIAXone 1,000 mg SDV 1000 MG IVP (18:42)
--- NOTE | 2024-04-26 18:42 | P.HP_ITS ---
Providers/Chief Complaint 2 Primary Care Provider: Sun Cox MD Chief Complaint: sob History of Present Illness Memo Salazar is a 88 year old male with a past medical history of pacemaker placement/AICD, history of mitral valve replacement therapy, on Coumadin, congestive heart failure, COPD on 2 L at home, who presents [facility] due to shortness of breath, wheezing, cough. Patient tells me that whenever he eats, he tends to have episodes of choking and coughing, globus sensation, he tells me recently has been feeling increasingly short of breath, productive cough, yellow-green sputum, no lower extremity edema does report chest pressure, reports a fever today Review of Systems 2 Const: Reports: fever(s) Card: Reports: chest pain Resp: Reports: dyspnea Medications/Allergies Home Medications Medication Instructions Recorded Confirmed Last Taken Type amiodarone 200 mg tablet See Rx Instructions .Route .COMPLEX 02/17/22 08/26/22 04/21/22 History digoxin 125 mcg (0.125 mg) tablet 125 mcg PO DAILY 02/17/22 08/26/22 04/21/22 History lovastatin 40 mg tablet 40 mg PO DAILY 02/17/22 08/26/22 04/21/22 History omeprazole 40 mg capsule,delayed 40 mg PO DAILY 02/17/22 08/26/22 04/21/22 History release tramadol 50 mg tablet 50 mg PO QAM 02/17/22 08/26/22 Unknown History warfarin 5 mg tablet See Rx Instructions .Route .COMPLEX 02/17/22 08/26/22 04/21/22 History albuterol sulfate 2.5 mg/3 mL 2.5 mg inhalation Q4H PRN 04/21/22 08/26/22 Unknown History (0.083 %) solution for nebulization Shortness Of Breath metoprolol succinate 25 mg 12.5 mg PO DAILY 04/21/22 08/26/22 04/21/22 History tablet,extended release 24 hr acetaminophen 500 mg tablet 500 mg PO QAM 08/26/22 08/26/22 Unknown History albuterol sulfate 90 mcg/actuation 2 puff inhalation QID PRN 08/26/22 08/26/22 Unknown History aerosol inhaler Shortness Of Breath levothyroxine 100 mcg tablet 100 mcg PO DAILY 08/26/22 08/26/22 Unknown History magnesium 250 mg tablet 250 mg PO DAILY 08/26/22 08/26/22 Unknown History albuterol sulfate 90 mcg/actuation 1 inh inhalation Q6H PRN shortness 08/29/22 Unknown Rx aerosol inhaler (Proventil HFA) of breath or wheezing #6.7 grams budesonide 180 mcg/actuation 1 inh inhalation BID #1 ea 08/29/22 Unknown Rx breath activated powder inhaler (Pulmicort Flexhaler) furosemide 20 mg tablet 40 mg (2 x 20 mg) PO QAM 30 days 08/29/22 Unknown Rx #30 tabs potassium chloride 10 mEq 20 meq (2 x 10 mEq) PO DAILY #30 08/29/22 Unknown Rx tablet,extended release (K-Tab) tabs Allergies Allergy/AdvReac Type Severity Reaction Status Date / Time No Known Allergies Allergy Verified 05/03/22 13:10 PFSH Acute 2 PFSH: Medical History Heart failure Community acquired pneumonia Pacemaker Hypothyroidism High cholesterol COPD (chronic obstructive pulmonary disease) No pertinent family history Pacemaker Surgical History History of mitral valve prosthesis Social History Smoking and tobacco/nicotine status: never used tobacco/nicotine Second hand smoke exposure: No Alcohol intake: never Substance/Drug Use: never Adopted: No Caregiver/support person: Yes Lives independently: No Household members: spouse Housing: House Marital status: Number of children: 3 Number of grandchildren: 5 Highest education level completed: High School Graduate service: No Current occupational status: retired Current occupational exposures/hazards: No Pets and animals: Yes Sexually active: Yes Do you think of yourself as: Straight/Heterosexual Current gender identity: Male Special felicia needs: No Agree to transfusion: Yes Vitals/I&O/Wt Last Vital Signs Temp 98.7 F 04/26/24 17:18 Pulse 75 04/26/24 17:58 Resp 24 H 04/26/24 17:50 BP 120/68 04/26/24 17:45 Pulse Ox 96 04/26/24 17:50 O2 Del Method Nasal Cannula 04/26/24 17:50 O2 Flow Rate 1 04/26/24 17:50 Weight last 48 hrs Weight 77.111 kg Physical Exam 2 Const: COMMON NORMALS: no acute distress and patient oriented x3 HENMT: COMMON NORMALS: normocephalic HEAD & SCALP: normocephalic Eye: COMMON NORMALS: Equal, round and reactive pupils present and EOMs intact bilaterally Neck/C-Spine: COMMON NORMALS: no JVD Lymph: OTHER: Cervical lymphadenopathy Resp: COMMON NORMALS: normal respiratory effort, No retractions, No use of accessory muscles and clear to auscultation bilaterally AUSCULTATION: c rackles and wheezes Cardio: COMMON NORMALS: no JVD, regular rate, regular rhythm, S1 normal heart sound present and S2 normal heart sound present RATE: regular rate RHYTHM: regular rhythm HEART SOUNDS: S1 normal heart sound present and S2 normal heart sound present GI: COMMON NORMALS: Normal to inspection, nondistended, normoactive bowel sounds present, Soft to palpation, non-tender, No hepatosplenomegaly present, no masses and no bruits PALPATION: Yes Soft to palpation Extremity: COMMON NORMALS: capillary refill normal, no calf tenderness and no pedal edema Neuro: COMMON NORMALS: patient oriented x3, CN's II-XII intact bilaterally and moves all extremities Psych: COMMON NORMALS: mental status grossly normal Data 04/26/24 17:10 04/26/24 17:10 Micro: Microbiology 04/26/24 17:17 Blood Culture - Preliminary Blood SPECIMEN COLLECTED 04/26/24 17:20 Blood Culture - Preliminary Blood SPECIMEN COLLECTED A&P Assessment and plan (1) Acute hypoxic respiratory failure: (2) Chest pain: Plan Acute hypoxic respiratory failure ? Highly suspicious for aspiration pneumonitis, aspiration pneumonia ? Does not look fluid overloaded BNP over 6800, which is about at baseline, possible CHF exacerbation ? Does have wheezing and crackles in upper lung iraheta, ? Plan ? Continue Rocephin ? Continue azithromycin ? Aspiration precautions -Modified barium swallow tomorrow -CT chest -Status post 40 mg IV push Lasix, monitor creatinine monitor urine output cardiac echo ? Monitor respiratory status closely ? DuoNeb -Budesonide ? Full code ? Coumadin for DVT prophylaxis Complaints of chest pressure ? Currently chest pain-free ? Serial EKGs consult troponin on library monitor -Cardiac echo Attestations 2 Medical Necessity Statement*: Patient requires hospitalization, inpatient, greater than 2 midnights, for acute hypoxic respiratory failure concern for aspiration pneumonia, aspiration pneumonitis, chest pain Diagnoses Acute hypoxic respiratory failure J96.01 Chest pain R07.9
[2024-04-26] MEDS: azithromycin 500 MG in sodium chloride 0.9% 250 ML 250 MG IV (18:43)
[2024-04-26] MEDS: FUROsemide 10 mg/mL SDV 4mL 40 MG IVP (18:43)
[2024-04-26 19:12] LABS: Troponin(5th) Baseline 51 ng/L (0-15)
[2024-04-26 19:13] LABS: C Reactive Protein 24.8 mg/L (0.0-4.9)
[2024-04-26 19:14] LABS: Lactic Sepsis W/Reflex 2.3 mmol/L (0.5-2.2)
[2024-04-26 19:19] LABS: Procalcitonin 0.05 ng/mL (0-0.5)
[2024-04-26 19:36] LABS: Erythrocyte Sedimentation Rate 50 mm/hr (0-10)
[2024-04-26 20:37] LABS: Digoxin 1.7 ng/mL (0.6-1.2)
[2024-04-26 20:39] LABS: Reflex Lactate Order REFLEX LACTIC ORDERD
--- NOTE | 2024-04-26 21:40 | ECG_ITS ---
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 Measurements Intervals [place] Rate: 76 P: 0 SD: 0 QRS: 165 QRSD: 213 T: 60 QT: 502 QTc: 568 Interpretive Statements ELECTRONIC VENTRICULAR PACEMAKER ABNORMAL RHYTHM ECG Compared to ECG 04/26/2024 16:59:10 No significant changes Electronically Signed On 04-27-2024 9:10:23 CDT by Charlie Zurita M.D. [id number]
[2024-04-26 21:47] LABS: Lactic Acid level (Lactate) 3.3 mmol/L (0.5-2.2)
[2024-04-26] MEDS: pantoprazole 40 mg SDV IVP (22:09)
[2024-04-26] MEDS: methylPREDNISolone sod succ 125 mg/2 mL INJ IVP (22:09)
[2024-04-26] MEDS: aspirin 81 mg EC Tablet PO (22:10)
[2024-04-26 22:12] LABS: Estmated Average Glucose 108; Hemoglobin A1C 5.4 % (4.0-6.0)
[2024-04-26 22:14] LABS: Cholesterol 146 mg/dL (0-200); HDL Cholesterol 43 mg/dL (60-100); LDL Cholesterol Calculated 83 mg/dL (50-129); LDL HDL Ratio 1.93 RATIO (0.00-3.22); Thyroid Stimulating Hormone 2.42 uIU/mL (0.27-4.20); Triglycerides 100 mg/dL (0-150)
[2024-04-26 22:40] LABS: Troponin 5 2HR 46.33 ng/L (0-15)
[2024-04-26 22:45] LABS: Troponin 5 2HR Delta -4.67 ABS# (0-10)
[2024-04-27] VITALS (18 sets, daily range): BP systolic 102–129; BP diastolic 52–72; PULSE 73–80; RESP 17–25; TEMP 35.5–37.1; O2SAT 93–99; BMI 25.8
[2024-04-27] MEDS: albuterol 2.5 mg/3 mL Neb INHALATION ×6 (00:16→21:00)
--- NOTE | 2024-04-27 00:17 | ECG_ITS ---
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 Measurements Intervals [place] Rate: 77 P: 0 PA: 0 QRS: 254 QRSD: 211 T: -6 QT: 477 QTc: 541 Interpretive Statements ELECTRONIC VENTRICULAR PACEMAKER Compared to ECG 04/26/2024 21:40:45 No significant changes Electronically Signed On 04-27-2024 9:10:09 CDT by Charlie Zurita M.D. [email or web address], [id number]
[2024-04-27 00:54] LABS: Troponin 5 6HR 41.05 ng/L (0-15)
[2024-04-27 01:09] LABS: Troponin 5 6HR Delta -9.95 ng/L (0-12)
[2024-04-27 03:20] LABS: Basophils % 0.1 %; Hematocrit 33.6 % (37-53); Lymphocytes # 0.3 10^3/uL (0.8-4.8); Lymphocytes % 3.3 %; Mean Corpuscular HGB Conc 31.5 g/dL (30-55); Mean Corpuscular Hemoglobin 29.9 pg (27-33); Mean Corpuscular Volume 94.9 fl (82-101); Mean Platelet Volume 11.1 fL (7.4-10.4); Monocytes # 0.1 10^3/uL (0.2-0.9); Neutrophils # 8.26 10^3/uL (1.8-7.7); Nucleated Red Blood Cells % 0 %; Platelet Count 173 10^3/cmm (157-399); Red Blood Count 3.54 10^6/uL (3.85-5.65); Red Cell Distribution Width 15.9 % (12.1-15.1)
[2024-04-27 03:24] LABS: INR 2.74 (0.8-1.2)
[2024-04-27 03:41] LABS: Alanine Aminotransferase 15 U/L (0-41); Albumin Level 3.9 g/dL (3.5-5.2); Alkaline Phosphatase 81 U/L (40-130); Aspartate Amino Transferase 18 U/L (0-40); Blood Urea Nitrogen 19 mg/dL (8-23); Carbon Dioxide 24 mmol/L (22-29); Chloride 101 mmol/L (98-107); Creatinine Clr Calc Pharmacy 44.9278; Globulin 2.9 g/dL (1.3-4.6); Glucose 208 mg/dL (65-115); Magnesium 2.2 mg/dL (1.7-2.3); Osmolality Calculated 298 mOsm/kg (285-295); Sodium 140 mmol/L (136-145); Total Bilirubin 1.1 mg/dL (0.15-1.2); Total Protein 6.8 g/dL (6.6-8.7)
[2024-04-27 03:45] LABS: NT Pro B Type Natriuretic Pept 9671 pg/mL (0-450)
[2024-04-27] MEDS: budesonide 0.5 mg/2 mL Neb INHALATION ×2 (07:48→21:00)
--- NOTE | 2024-04-27 08:30 | PC.NURSE ---
Patient takes Tramadol 50 at home QAM and requested it this morning. Nurse only saw tylenol and morphine on the NOV and asked Dr. Abraham if patient could resume home med. Abraham Ok'd and stopped tylenol and morphine. Orders entered.
[2024-04-27] MEDS: metoprolol succinate ER (24 HR) 25 mg Tablet 12.5 MG PO (09:15)
[2024-04-27] MEDS: potassium chloride ER 20 mEq Tablet PO (09:15)
[2024-04-27] MEDS: metOLazone 5 MG Tablet PO (09:15)
[2024-04-27] MEDS: FUROsemide 10 mg/mL SDV 4mL 40 MG IVP (09:16)
[2024-04-27] MEDS: aspirin 81 mg EC Tablet PO (09:16)
[2024-04-27] MEDS: atorvastatin 40 mg Tablet 20 MG PO (09:16)
[2024-04-27] MEDS: levothyroxine 100 mcg Tablet PO (09:16)
[2024-04-27] MEDS: TRAMadol 50 mg Tablet PO (09:17)
[2024-04-27] MEDS: amiodarone 200 mg Tablet PO (09:34)
--- NOTE | 2024-04-27 09:51 | PC.CHAP ---
Pastoral Care Encounter/Spiritual Assessment Type of Contact [] Declined welder shielded metal arc visit [] Patient/Family/Request visit [] Outpatient visit [] Follow-up visit [] Physician referral [] Code/Alert [x] Routine visit [] Staff referral [] Actively dying [] Patient sleeping [] Family support [] [] Out of room [] Palliative care [] [] Receiving care in room [] Pre-surgical visit [] Trauma [] Long length of stay [] ICU visit [] Other: Relational/Emotional Strength [x] Patient feels connected with others/family/visitors/staff [] Distress [] Loneliness/isolation [] Abandonment Spirituality of Patient [x] Person of Jessie [x] Attends Bahai of their Jessie [x] Believes in Prayer [] Reads Bible or Islam materials [] There are Spiritual issues to be addressed Licensing Engineer Interventions [x] Prayer [x] Active listening [x] Non-anxious presence [] Spiritual/emotional support [] Crisis/trauma care [] Spiritual counseling [] Bereavement support [] Provided bereavement packet [] Provided Bible/devotional materials [] Provided toy/stuffed animal, coloring book to patient or family member [] Provided Communion [] Anointing/[place] [] Salvation [] Completed spiritual assessment [] Other: Impact on Illness or Injury [] Angry [] Fearful [] Anxious [] Often cries [] Exhaustion [] Unable to work [] Unable to attend anabaptism [] Unable to walk/stand [] Unable to read [] Unable to drive [] Unable to eat/drink [] Unable to sleep [] Unable to be with family [] Patient intubated [] Other: Summary Prayer, Time spent with patient 5 min
--- NOTE | 2024-04-27 10:52 | PC.NURSE ---
Radiology notified nurse that the barium swallow could not be done today due to no speech pathologists being here. They said there likely wont be anyone here until TuesdayMay 01. Dr. Abraham notified.
--- NOTE | 2024-04-27 13:37 | P.PN_ITS ---
Subjective 2 Subjective: Patient was seen this morning, he is sitting up to side of bed, working with speech therapy, speech therapy does note that patient aspirates with thin liquids, he tells me that he has had his esophageal been dilated in the past, does have globus sensation, he does report coughing and choking when he eats his meals, he tells me that sometimes after he eats his meal, he will have significant vomiting episodes, he tells me that his tube winder is in [place], his tube winder has spoken to him about his ejection fraction he tells me that it is 18%, he is supposed to have his hip replaced, but the tube winder will clear him, because he tells me I will on the table , so he can have his hip replaced, Vitals/I&O/Wt Last Vital Signs Temp 96 F L 04/27/24 12:00 Pulse 78 04/27/24 12:00 Resp 25 H 04/27/24 12:00 BP 116/72 04/27/24 12:00 Pulse Ox 98 04/27/24 12:00 O2 Del Method Nasal Cannula 04/27/24 12:00 O2 Flow Rate 2 04/27/24 11:53 04/26/24 04/27/24 04/27/24 22:59 06:59 14:59 Intake Total 250 / 250 120 / 120 Output Total 300 / 300 400 / 400 Balance -50 / -50 -280 / -280 Weight last 48 hrs Weight 77.111 kg Weight 77.111 kg Weight 77.111 kg Physical Exam 2 Const: COMMON NORMALS: no acute distress and patient oriented x3 Resp: COMMON NORMALS: normal respiratory effort, No retractions, No use of accessory muscles and clear to auscultation bilaterally AUSCULTATION: clear to auscultation bilaterally Cardio: COMMON NORMALS: regular rate, regular rhythm, S1 normal heart sound present and S2 normal heart sound present RATE: regular rate RHYTHM: r egular rhythm HEART SOUNDS: S1 normal heart sound present and S2 normal heart sound present GI: COMMON NORMALS: Normal to inspection, nondistended, normoactive bowel sounds present and non-tender Extremity: COMMON NORMALS: no pedal edema Neuro: COMMON NORMALS: patient oriented x3 Psych: COMMON NORMALS: mental status grossly normal Data 04/27/24 02:35 08/02/24 02:35 Micro: Microbiology 04/26/24 17:17 Blood Culture - Preliminary Blood SPECIMEN COLLECTED 04/26/24 17:20 Blood Culture - Preliminary Blood SPECIMEN COLLECTED A&P Assessment and plan (1) Acute hypoxic respiratory failure: (2) Chest pain: Plan Acute hypoxic respiratory failure ? Highly suspicious for aspiration pneumonitis, aspiration pneumonia ? Does not look fluid overloaded BNP over 6800, which is about at baseline, possible CHF exacerbation ? Does have wheezing and crackles in upper lung iraheta, -Ct of the chest - CT/CT chest wo con [id number] IMPRESSION: 1. No focal consolidations or pulmonary edema. 2. Severe cardiomegaly and unchanged small pericardial effusion. 3. Moderately sized hiatal hernia with dilation of the distal esophagus. Findings can be correlated with esophagram if clinically indicated. ? Plan ? Continue Rocephin ? Continue azithromycin ? Aspiration precautions -Modified barium swallow -Dysphagia level 4 diet ? Monitor respiratory status closely ? DuoNeb -Budesonide ? Full code ? Coumadin for DVT prophylaxis Complaints of chest pressure -Has pacemaker, ICD in place ? Currently chest pain-free ? Serial EKGs consult troponin on quality assurance monitor final -Cardiac echo CONCLUSIONS LV systolic function is severely reduced with EF of 10 to 15%. Biatrial enlargement. 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 No significant stenosis. Moderate tricuspid regurgitation Moderate pulmonary hypertension Mildly dilated ascending aorta with diameter 3.53 cm. Compared to prior echocardiogram from 2021, LV systolic function has decreased significantly. Digoxin level 1.7, hold digoxin, recheck tomorrow Full code ? Coumadin for DVT prophylaxis Attestations 2 Medical Necessity Statement*: Patient requires hospitalization for acute hypoxic respiratory failure for aspiration pneumonitis, aspiration pneumonia, complaints of chest pressure Diagnoses Acute hypoxic respiratory failure J96.01 Chest pain R07.9
[2024-04-27 15:08] LABS: Charge for UA Resulting for Rev
[2024-04-27 15:19] LABS: Bilirubin Urine Negative (Negative); Blood Urine Negative (Negative); Glucose Urine UA Negative (Normal); Ketones Urine Negative (Negative); Leukocyte Esterase Urine Negative (Negative); Nitrate Urine Negative (Negative); Protein Urine Negative (Negative); Specific Gravity, Urine 1.009 (1.005-1.030); Urine Appearance Clear (CLEAR); Urine Color Yellow (Yellow); pH Urine 5.5 (5-7)
[2024-04-27 15:29] LABS: Adenovirus Not Detected (NOT DETECT); Chlamydia Pneumoniae Not Detected (NOT DETECT); Coronavirus 229E,HKU1,NL63,OC4 Not Detected (NOT DETECT); Human Metapneumovirus Not Detected (NOT DETECT); Human Rhinovirus/Enterovirus Not Detected (NOT DETECT); Influenza A Not Detected (NOT DETECT); Influenza A H1 Not Detected (NOT DETECT); Influenza A H1-2009 Not Detected (NOT DETECT); Influenza A H3 Not Detected (NOT DETECT); Influenza B Not Detected (NOT DETECT); Mycoplasma Pneumoniae Not Detected (NOT DETECT); Parainfluenza Virus Type 1 Not Detected (NOT DETECT); Parainfluenza Virus Type 2 Not Detected (NOT DETECT); Parainfluenza Virus Type 3 Not Detected (NOT DETECT); Parainfluenza Virus Type 4 Not Detected (NOT DETECT); Respiratory Syncytial Virus A Not Detected (NOT DETECT); Respiratory Syncytial Virus B Not Detected (NOT DETECT)
[2024-04-27] MEDS: azithromycin 500 MG in sodium chloride 0.9% 250 ML 250 MG IV (18:42)
[2024-04-27] MEDS: cefTRIAXone 1,000 mg SDV 1000 MG IVP (18:43)
[2024-04-27 19:39] LABS: SARS-COV-2 Detected (NOT DETECT)
[2024-04-27] MEDS: warfarin 5 mg Tablet PO (20:13)
[2024-04-27] MEDS: pantoprazole 40 mg SDV IVP (20:48)
[2024-04-28] VITALS (65 sets, daily range): BP systolic 104–130; BP diastolic 61–74; PULSE 75–85; RESP 18–26; TEMP 36.1–36.9; O2SAT 90–100
[2024-04-28] MEDS: albuterol 2.5 mg/3 mL Neb INHALATION ×6 (00:42→20:22)
[2024-04-28] MEDS: TRAMadol 50 mg Tablet PO ×2 (03:33→23:37)
[2024-04-28 03:37] LABS: Basophils % 0.1 %; Hematocrit 34.6 % (37-53); Lymphocytes # 0.6 10^3/uL (0.8-4.8); Lymphocytes % 4.1 %; Mean Corpuscular HGB Conc 30.6 g/dL (30-55); Mean Corpuscular Hemoglobin 29.7 pg (27-33); Mean Corpuscular Volume 96.9 fl (82-101); Mean Platelet Volume 11.5 fL (7.4-10.4); Monocytes # 1.4 10^3/uL (0.2-0.9); Monocytes % 9.4 %; Neutrophils # 12.64 10^3/uL (1.8-7.7); Neutrophils % 85.9 %; Nucleated Red Blood Cells % 0 %; Platelet Count 194 10^3/cmm (157-399); Red Blood Count 3.57 10^6/uL (3.85-5.65); Red Cell Distribution Width 15.9 % (12.1-15.1); White Blood Count 14.71 10^3/uL (3.29-11.43)
[2024-04-28 03:59] LABS: Alanine Aminotransferase 15 U/L (0-41); Alkaline Phosphatase 73 U/L (40-130); Anion Gap 18.2 (5-19); Aspartate Amino Transferase 18 U/L (0-40); Blood Urea Nitrogen 32 mg/dL (8-23); Carbon Dioxide 26 mmol/L (22-29); Chloride 100 mmol/L (98-107); Creatinine Clr Calc Pharmacy 41.4718; Globulin 2.4 g/dL (1.3-4.6); Glucose 112 mg/dL (65-115); Osmolality Calculated 298 mOsm/kg (285-295); Potassium 4.2 mmol/L (3.5-5.1); Sodium 140 mmol/L (136-145); Total Bilirubin 0.8 mg/dL (0.15-1.2); Total Protein 6.4 g/dL (6.6-8.7)
[2024-04-28 04:04] LABS: Digoxin 1.2 ng/mL (0.6-1.2)
[2024-04-28] MEDS: budesonide 0.5 mg/2 mL Neb INHALATION ×2 (07:48→20:22)
[2024-04-28] MEDS: levothyroxine 100 mcg Tablet PO (10:18)
[2024-04-28] MEDS: atorvastatin 40 mg Tablet 20 MG PO (10:18)
[2024-04-28] MEDS: aspirin 81 mg EC Tablet PO (10:18)
[2024-04-28] MEDS: metoprolol succinate ER (24 HR) 25 mg Tablet 12.5 MG PO (10:18)
[2024-04-28] MEDS: dexamethasone 10 mg/mL INJ 6 MG IVP (10:19)
[2024-04-28] MEDS: remdesivir 200 MG in sodium chloride 0.9% (100 ml) 60 ML 100 MG IV (10:19)
--- NOTE | 2024-04-28 13:23 | PM.PN ---
Subjective Subjective: patient was seen this morning, COVID-19 test was positive, test for report fatigue, malaise, persistent cough, no chest pain, no palpitations, currently on 2 L, Vitals/I&O/Wt Last Vital Signs Temp 98.0 F 04/28/24 11:32 Pulse 79 04/28/24 12:00 Resp 18 04/28/24 11:32 BP 109/64 04/28/24 11:32 Pulse Ox 98 04/28/24 11:32 O2 Del Method Nasal Cannula 04/28/24 11:32 O2 Flow Rate 2 04/28/24 11:32 04/27/24 04/28/24 04/28/24 22:59 06:59 14:59 Intake Total 730 / 850 580 / 580 Output Total 200 / 1150 375 / 1525 550 / 550 Balance 530 / -300 -375 / -675 30 / 30 Weight last 48 hrs Weight 74.661 kg Weight 77.111 kg Weight 77.111 kg Weight 77.111 kg Physical Exam Const: COMMON NORMALS: no acute distress and patient oriented x3 Resp: COMMON NORMALS: normal respiratory effort, No retractions and No use of accessory muscles AUSCULTATION: crackles and wheezes Cardio: COMMON NORMALS: regular rate, regular rhythm, S1 normal heart sound present and S2 normal heart sound present RATE: regular rate RHYTHM: regular rhythm HEART SOUNDS: S1 normal heart sound present and S2 normal heart sound present GI: COMMON NORMALS: Soft to palpation INSPECTION: Yes normal to inspection AUSCULTATION: Yes normoactive bowel sounds PALPATION: Yes Soft to palpation, Yes Firmness to palpation present (GI), No Tenderness to palpation present (GI) and No Guarding due to palpation present (GI) Extremity: COMMON NORMALS: no pedal edema Neuro: COMMON NORMALS: patient oriented x3 Psych: COMMON NORMALS: mental status grossly normal Data 04/28/24 02:47 04/28/24 02:47 Micro: Microbiology 04/27/24 12:03 Gram Stain - Final Sputum - Expectorated Sputum Sputum Culture - Preliminary 04/26/24 17:17 Blood Culture - Preliminary Blood NEGATIVE TO DATE 04/26/24 17:20 Blood Culture - Preliminary Blood NEGATIVE TO DATE A&P Assessment and plan (1) Acute hypoxic respiratory failure: (2) Chest pain: (3) Pneumonia due to COVID-19 virus: (4) Congestive heart failure: (5) Aspiration pneumonia: Plan Acute hypoxic respiratory failure ? Highly suspicious for aspiration pneumonitis, aspiration pneumonia ? Does not look fluid overloaded BNP over 6800, which is about at baseline, possible CHF exacerbation -COVID-19 pneumonia ? Does have wheezing and crackles in upper lung iraheta, -Ct of the chest - CT/CT chest wo con [id number] IMPRESSION: 1. No focal consolidations or pulmonary edema. 2. Severe cardiomegaly and unchanged small pericardial effusion. 3. Moderately sized hiatal hernia with dilation of the distal esophagus. Findings can be correlated with esophagram if clinically indicated. ? Plan ? Continue Rocephin ? Continue azithromycin -Start Decadron 6 mg IV push daily -Start remdesivir ? Aspiration precautions -Modified barium swallow ordered -Dysphagia level 4 diet ? Monitor respiratory status closely ? DuoNeb -Budesonide ? Full code ? Coumadin for DVT prophylaxis Complaints of chest pressure ? None currently -Has pacemaker, ICD in place ? Currently chest pain-free ? Serial EKGs consult troponin on cardiac monitor technician -Cardiac echo CONCLUSIONS LV systolic function is severely reduced with EF of 10 to 15%. Biatrial enlargement. 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 No significant stenosis. Moderate tricuspid regurgitation Moderate pulmonary hypertension Mildly dilated ascending aorta with diameter 3.53 cm. Compared to prior echocardiogram from 2021, LV systolic function has decreased significantly. Digoxin level 0.7, start digoxin 125 mcg every other day Full code ? Coumadin for DVT prophylaxis Plan for today, up out of bed, into a chair, start Decadron, remdesivir continue antibiotic therapy, aspiration precautions dysphagia level 4 diet monitor closely Attestations Medical Necessity Statement*: Patient requires hospitalization for acute hypoxic respiratory failure Diagnoses Acute hypoxic respiratory failure J96.01 Chest pain R07.9 Pneumonia due to COVID-19 virus U07.1; J12.82 Congestive heart failure I50.9 Aspiration pneumonia J69.0
[2024-04-28] MEDS: cefTRIAXone 1,000 mg SDV 1000 MG IVP (18:08)
[2024-04-28] MEDS: azithromycin 250 mg Tablet PO (18:08)
[2024-04-28] MEDS: warfarin 2.5 mg Tablet PO (21:24)
[2024-04-28] MEDS: pantoprazole 40 mg SDV IVP (21:25)
[2024-04-29] VITALS (16 sets, daily range): BP systolic 95–125; BP diastolic 42–85; PULSE 75–85; RESP 10–19; TEMP 36.4–36.8; O2SAT 92–99
[2024-04-29] MEDS: albuterol 2.5 mg/3 mL Neb INHALATION ×6 (00:37→20:51)
[2024-04-29] MEDS: FUROsemide 10 mg/mL SDV 4mL 40 MG IVP ×2 (01:51→10:55)
[2024-04-29] MEDS: acetaminophen 500 mg Tablet 1000 MG PO ×2 (01:58→22:34)
[2024-04-29 03:02] LABS: Basophils % 0.1 %; Hematocrit 32.9 % (37-53); Lymphocytes # 0.5 10^3/uL (0.8-4.8); Lymphocytes % 4.9 %; Mean Corpuscular HGB Conc 31.6 g/dL (30-55); Mean Corpuscular Hemoglobin 30.2 pg (27-33); Mean Corpuscular Volume 95.6 fl (82-101); Mean Platelet Volume 11.2 fL (7.4-10.4); Monocytes # 0.7 10^3/uL (0.2-0.9); Monocytes % 6.3 %; Neutrophils # 9.62 10^3/uL (1.8-7.7); Neutrophils % 88.2 %; Nucleated Red Blood Cells % 0 %; Platelet Count 188 10^3/cmm (157-399); Red Blood Count 3.44 10^6/uL (3.85-5.65); White Blood Count 10.91 10^3/uL (3.29-11.43)
[2024-04-29 03:13] LABS: INR 2.62 (0.8-1.2)
[2024-04-29 03:16] LABS: C Reactive Protein 26.6 mg/L (0.0-4.9)
[2024-04-29 03:18] LABS: Alanine Aminotransferase 16 U/L (0-41); Albumin Level 3.9 g/dL (3.5-5.2); Alkaline Phosphatase 73 U/L (40-130); Anion Gap 18.5 (5-19); Aspartate Amino Transferase 19 U/L (0-40); Blood Urea Nitrogen 32 mg/dL (8-23); Calcium 8.6 mg/dL (8.5-10.5); Carbon Dioxide 26 mmol/L (22-29); Chloride 97 mmol/L (98-107); Creatinine Clr Calc Pharmacy 44.3153; Globulin 2.4 g/dL (1.3-4.6); Glucose 117 mg/dL (65-115); Osmolality Calculated 292 mOsm/kg (285-295); Potassium 4.5 mmol/L (3.5-5.1); Sodium 137 mmol/L (136-145); Total Bilirubin 0.7 mg/dL (0.15-1.2); Total Protein 6.3 g/dL (6.6-8.7)
[2024-04-29 03:25] LABS: NT Pro B Type Natriuretic Pept 6021 pg/mL (0-450); Procalcitonin 0.04 ng/mL (0-0.5)
[2024-04-29] MEDS: remdesivir 100 MG in sodium chloride 0.9% (100 ml) 80 ML IV (05:14)
[2024-04-29] MEDS: budesonide 0.5 mg/2 mL Neb INHALATION ×2 (07:30→20:51)
[2024-04-29] MEDS: aspirin 81 mg EC Tablet PO (08:45)
[2024-04-29] MEDS: metoprolol succinate ER (24 HR) 25 mg Tablet 12.5 MG PO (08:45)
[2024-04-29] MEDS: dexamethasone 10 mg/mL INJ 6 MG IVP (08:45)
[2024-04-29] MEDS: atorvastatin 40 mg Tablet 20 MG PO (08:45)
[2024-04-29] MEDS: levothyroxine 100 mcg Tablet PO (08:46)
[2024-04-29] MEDS: potassium chloride ER 20 mEq Tablet PO (10:55)
--- NOTE | 2024-04-29 13:39 | PM.PN ---
Subjective Subjective: Patient was seen this morning, he continues to complain of shortness of breath, cough, no fevers, no chills, no nausea, no vomiting, no lightheadedness, no dizziness, Vitals/I&O/Wt Last Vital Signs Temp 97.8 F 04/29/24 12:00 Pulse 77 04/29/24 12:00 Resp 18 04/29/24 12:00 BP 125/68 04/29/24 12:00 Pulse Ox 93 04/29/24 12:00 O2 Del Method Room Air 04/29/24 12:00 O2 Flow Rate 2 04/29/24 07:33 04/28/24 04/29/24 04/29/24 22:59 06:59 14:59 Intake Total 360 / 940 100 / 1040 Output Total 600 / 1150 1650 / 2800 625 / 625 Balance -240 / -210 -1550 / -1760 -625 / -625 Weight last 48 hrs Weight 72.983 kg Weight 74.661 kg Physical Exam Const: COMMON NORMALS: no acute distress and patient oriented x3 Resp: COMMON NORMALS: normal respiratory effort, No retractions, No use of accessory muscles and clear to auscultation bilaterally AUSCULTATION: clear to auscultation bilaterally Cardio: COMMON NORMALS: regular rate, regular rhythm, S1 normal heart sound present and S2 normal heart sound present RATE: regular rate RHYTHM: regular rhythm HEART SOUNDS: S1 normal heart sound present and S2 normal heart sound present GI: COMMON NORMALS: Normal to inspection, nondistended, normoactive bowel sounds present and non-tender Extremity: COMMON NORMALS: no pedal edema Neuro: COMMON NORMALS: patient oriented x3 Psych: COMMON NORMALS: mental status grossly normal Data 04/29/24 02:14 04/29/24 02:14 Micro: Microbiology 04/27/24 12:03 Gram Stain - Final Sputum - Expectorated Sputum Sputum Culture - Final A&P Assessment and plan (1) Acute hypoxic respiratory failure: (2) Chest pain: (3) Pneumonia due to COVID-19 virus: (4) Congestive heart failure: (5) Aspiration pneumonia: Plan Acute hypoxic respiratory failure ? Highly suspicious for aspiration pneumonitis, aspiration pneumonia ? Fluid overload 6021, which is about at baseline, possible CHF exacerbation -COVID-19 pneumonia ? Does have wheezing and crackles in upper lung iraheta, -Ct of the chest - CT/CT chest wo con [id number] IMPRESSION: 1. No focal consolidations or pulmonary edema. 2. Severe cardiomegaly and unchanged small pericardial effusion. 3. Moderately sized hiatal hernia with dilation of the distal esophagus. Findings can be correlated with esophagram if clinically indicated. ? Plan ? Continue Rocephin ? Continue azithromycin -Decadron 6 mg IV push daily -remdesivir ? Aspiration precautions -Modified barium swallow ordered -Dysphagia level 4 diet ? Monitor respiratory status closely ? DuoNeb -Budesonide ? Full code ? Coumadin for DVT prophylaxis Complaints of chest pressure ? None currently -Has pacemaker, ICD in place ? Currently chest pain-free ? Serial EKGs consult troponin on monitoring coordinator -Cardiac echo CONCLUSIONS LV systolic function is severely reduced with EF of 10 to 15%. Biatrial enlargement. 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 No significant stenosis. Moderate tricuspid regurgitation Moderate pulmonary hypertension Mildly dilated ascending aorta with diameter 3.53 cm. Compared to prior echocardiogram from 2021, LV systolic function has decreased significantly. Digoxin level 0.7, start digoxin 125 mcg every other day Full code ? Coumadin for DVT prophylaxis Plan for today, recheck creatinine, BMP, 1 dose IV Lasix, continue Rocephin, azithromycin, Decadron, remdesivir Attestations Medical Necessity Statement*: Patient requires hospitalization for acute hypoxic respiratory failure secondary to COVID-19, pneumonia, fluid overload Diagnoses Acute hypoxic respiratory failure J96.01 Chest pain R07.9 Pneumonia due to COVID-19 virus U07.1; J12.82 Congestive heart failure I50.9 Aspiration pneumonia J69.0
[2024-04-29] MEDS: azithromycin 250 mg Tablet PO (18:05)
[2024-04-29] MEDS: cefTRIAXone 1,000 mg SDV 1000 MG IVP (18:06)
[2024-04-29] MEDS: TRAMadol 50 mg Tablet PO (22:33)
[2024-04-29] MEDS: pantoprazole 40 mg SDV IVP (22:33)
[2024-04-29] MEDS: warfarin 2.5 mg Tablet PO (22:34)
[2024-04-30] VITALS (17 sets, daily range): BP systolic 92–121; BP diastolic 44–73; PULSE 23–85; RESP 16–23; TEMP 36.4–36.8; O2SAT 93–100
[2024-04-30 03:20] LABS: Basophils % 0.2 %; Lymphocytes # 0.5 10^3/uL (0.8-4.8); Lymphocytes % 4.8 %; Mean Corpuscular HGB Conc 32.4 g/dL (30-55); Mean Corpuscular Hemoglobin 30.5 pg (27-33); Mean Corpuscular Volume 94.2 fl (82-101); Monocytes # 0.8 10^3/uL (0.2-0.9); Monocytes % 8.6 %; Neutrophils # 8.35 10^3/uL (1.8-7.7); Neutrophils % 85.8 %; Nucleated Red Blood Cells % 0 %; Platelet Count 211 10^3/cmm (157-399); Red Blood Count 3.61 10^6/uL (3.85-5.65); Red Cell Distribution Width 15.6 % (12.1-15.1); White Blood Count 9.74 10^3/uL (3.29-11.43)
[2024-04-30 03:23] LABS: INR 2.14 (0.8-1.2)
[2024-04-30 03:30] LABS: Alanine Aminotransferase 16 U/L (0-41); Albumin Level 3.9 g/dL (3.5-5.2); Alkaline Phosphatase 70 U/L (40-130); Anion Gap 18.3 (5-19); Aspartate Amino Transferase 17 U/L (0-40); Blood Urea Nitrogen 36 mg/dL (8-23); Calcium 8.6 mg/dL (8.5-10.5); Carbon Dioxide 28 mmol/L (22-29); Chloride 93 mmol/L (98-107); Creatinine Clr Calc Pharmacy 43.8958; Globulin 2.7 g/dL (1.3-4.6); Glucose 126 mg/dL (65-115); Osmolality Calculated 290 mOsm/kg (285-295); Potassium 4.3 mmol/L (3.5-5.1); Sodium 135 mmol/L (136-145); Total Bilirubin 0.8 mg/dL (0.15-1.2); Total Protein 6.6 g/dL (6.6-8.7)
[2024-04-30 03:33] LABS: C Reactive Protein 18.3 mg/L (0.0-4.9)
[2024-04-30 03:41] LABS: NT Pro B Type Natriuretic Pept 4975 pg/mL (0-450); Procalcitonin 0.04 ng/mL (0-0.5)
[2024-04-30] MEDS: albuterol 2.5 mg/3 mL Neb INHALATION ×5 (04:05→21:00)
[2024-04-30] MEDS: remdesivir 100 MG in sodium chloride 0.9% (100 ml) 80 ML IV (05:58)
[2024-04-30] MEDS: budesonide 0.5 mg/2 mL Neb INHALATION ×2 (08:17→21:00)
[2024-04-30] MEDS: dexamethasone 10 mg/mL INJ 6 MG IVP (08:35)
[2024-04-30] MEDS: amiodarone 200 mg Tablet PO (08:36)
[2024-04-30] MEDS: atorvastatin 40 mg Tablet 20 MG PO (08:36)
[2024-04-30] MEDS: aspirin 81 mg EC Tablet PO (08:36)
[2024-04-30] MEDS: digoxin 125 mcg Tablet PO (08:36)
[2024-04-30] MEDS: levothyroxine 100 mcg Tablet PO (08:36)
[2024-04-30] MEDS: metoprolol succinate ER (24 HR) 25 mg Tablet 12.5 MG PO (08:36)
--- NOTE | 2024-04-30 15:20 | P.PN_ITS ---
Subjective 2 Subjective: Patient was seen this morning, he continues to complain of shortness of breath, wheezing, fatigue, malaise, no nausea, no vomiting, abdominal pain Vitals/I&O/Wt Last Vital Signs Temp 98.0 F 04/30/24 12:00 Pulse 85 04/30/24 12:30 Resp 18 04/30/24 12:30 BP 107/67 04/30/24 12:00 Pulse Ox 97 04/30/24 12:30 O2 Del Method Nasal Cannula 04/30/24 12:30 O2 Flow Rate 2 04/30/24 12:30 04/30/24 04/30/24 04/30/24 06:59 14:59 22:59 Intake Total 100 / 400 200 / 200 Output Total 400 / 1550 Balance -300 / -1150 200 / 200 Weight last 48 hrs Weight 73.936 kg Weight 72.983 kg Physical Exam 2 Const: COMMON NORMALS: no acute distress and patient oriented x3 Resp: COMMON NORMALS: normal respiratory effort, No retractions and No use of accessory muscles AUSCULTATION: crackles and wheezes Cardio: COMMON NORMALS: regular rate, regular rhythm, S1 normal heart sound present and S2 normal heart sound present RATE: regular rate RHYTHM: r egular rhythm HEART SOUNDS: S1 normal heart sound present and S2 normal heart sound present GI: COMMON NORMALS: Normal to inspection, nondistended, normoactive bowel sounds present and non-tender Extremity: COMMON NORMALS: no pedal edema Neuro: COMMON NORMALS: patient oriented x3 Psych: COMMON NORMALS: mental status grossly normal Data 04/30/24 02:53 04/30/24 02:53 Micro: Microbiology 04/27/24 12:03 Gram Stain - Final Sputum - Expectorated Sputum Sputum Culture - Final A&P Assessment and plan (1) Acute hypoxic respiratory failure: (2) Chest pain: (3) Pneumonia due to COVID-19 virus: (4) Congestive heart failure: (5) Aspiration pneumonia: Plan Acute hypoxic respiratory failure ? Highly suspicious for aspiration pneumonitis, aspiration pneumonia ? Fluid overload 6021, which is about at baseline, possible CHF exacerbation -COVID-19 pneumonia ? Does have wheezing and crackles in upper lung iraheta, -Ct of the chest - CT/CT chest wo con [id number] IMPRESSION: 1. No focal consolidations or pulmonary edema. 2. Severe cardiomegaly and unchanged small pericardial effusion. 3. Moderately sized hiatal hernia with dilation of the distal esophagus. Findings can be correlated with esophagram if clinically indicated. ? Plan ? Continue Rocephin ? Continue PO azithromycin -Decadron 6 mg IV push daily -remdesivir ? Aspiration precautions -Modified barium swallow ordered -Dysphagia level 4 diet ? Monitor respiratory status closely ? DuoNeb -Budesonide ? Full code ? Coumadin for DVT prophylaxis Complaints of chest pressure ? None currently -Has pacemaker, ICD in place ? Currently chest pain-free ? Serial EKGs consult troponin on plate worker helper -Cardiac echo CONCLUSIONS LV systolic function is severely reduced with EF of 10 to 15%. Biatrial enlargement. 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 No significant stenosis. Moderate tricuspid regurgitation Moderate pulmonary hypertension Mildly dilated ascending aorta with diameter 3.53 cm. Compared to prior echocardiogram from 2021, LV systolic function has decreased significantly. -1 dose IV Lasix today s/p TAVR bioprosthetic aortic valve Digoxin level 0.7, start digoxin 125 mcg every other day Full code ? Coumadin for DVT prophylaxis Plan for today, continue Decadron and remdesivir continue steroids, monitor clinical status, Attestations 2 Medical Necessity Statement*: Requires hospitalization for acute CHF exacerbation, concerns for aspiration pneumonitis, aspiration pneumonia, COVID-19 pneumonia Diagnoses Acute hypoxic respiratory failure J96.01 Chest pain R07.9 Pneumonia due to COVID-19 virus U07.1; J12.82 Congestive heart failure I50.9 Aspiration pneumonia J69.0
[2024-04-30] MEDS: potassium chloride ER 20 mEq Tablet PO (15:49)
[2024-04-30] MEDS: FUROsemide 10 mg/mL SDV 4mL 40 MG IVP (15:49)
[2024-04-30] MEDS: cefTRIAXone 1,000 mg SDV 1000 MG IVP (18:10)
[2024-04-30] MEDS: azithromycin 250 mg Tablet PO (18:10)
[2024-04-30] MEDS: pantoprazole 40 mg SDV IVP (20:22)
[2024-04-30] MEDS: warfarin 5 mg Tablet PO (20:22)
[2024-04-30] MEDS: TRAMadol 50 mg Tablet PO (21:21)
[2024-04-30] MEDS: acetaminophen 500 mg Tablet 1000 MG PO (21:22)
[2024-05-01] VITALS (10 sets, daily range): BP systolic 96–140; BP diastolic 34–82; PULSE 74–82; RESP 15–25; TEMP 36.4–36.8; O2SAT 91–99
[2024-05-01] MEDS: albuterol 2.5 mg/3 mL Neb INHALATION ×3 (00:58→08:02)
[2024-05-01 04:59] LABS: Basophils % 0.1 %; Hematocrit 36.2 % (37-53); Lymphocytes # 0.8 10^3/uL (0.8-4.8); Lymphocytes % 7.1 %; Mean Corpuscular Hemoglobin 30.2 pg (27-33); Mean Corpuscular Volume 94.3 fl (82-101); Mean Platelet Volume 10.8 fL (7.4-10.4); Monocytes # 1.2 10^3/uL (0.2-0.9); Monocytes % 10.8 %; Neutrophils # 8.74 10^3/uL (1.8-7.7); Neutrophils % 81.3 %; Nucleated Red Blood Cells % 0 %; Platelet Count 238 10^3/cmm (157-399); Red Blood Count 3.84 10^6/uL (3.85-5.65); Red Cell Distribution Width 15.6 % (12.1-15.1); White Blood Count 10.75 10^3/uL (3.29-11.43)
[2024-05-01 05:18] LABS: Alanine Aminotransferase 25 U/L (0-41); Albumin Level 4.1 g/dL (3.5-5.2); Alkaline Phosphatase 76 U/L (40-130); Anion Gap 18.1 (5-19); Aspartate Amino Transferase 23 U/L (0-40); Blood Urea Nitrogen 39 mg/dL (8-23); Calcium 8.8 mg/dL (8.5-10.5); Carbon Dioxide 29 mmol/L (22-29); Chloride 95 mmol/L (98-107); Creatinine Clr Calc Pharmacy 44.3608; Globulin 2.7 g/dL (1.3-4.6); Glucose 109 mg/dL (65-115); Osmolality Calculated 296 mOsm/kg (285-295); Potassium 4.1 mmol/L (3.5-5.1); Sodium 138 mmol/L (136-145); Total Bilirubin 0.9 mg/dL (0.15-1.2); Total Protein 6.8 g/dL (6.6-8.7)
[2024-05-01] MEDS: remdesivir 100 MG in sodium chloride 0.9% (100 ml) 80 ML IV (05:19)
[2024-05-01 05:21] LABS: C Reactive Protein 12.5 mg/L (0.0-4.9)
[2024-05-01 05:25] LABS: INR 1.86 (0.8-1.2)
[2024-05-01 05:28] LABS: NT Pro B Type Natriuretic Pept 4604 pg/mL (0-450); Procalcitonin 0.05 ng/mL (0-0.5)
[2024-05-01] MEDS: budesonide 0.5 mg/2 mL Neb INHALATION (08:02)
[2024-05-01] MEDS: magnesium oxide 400 mg tablet 200 MG PO (10:46)
[2024-05-01] MEDS: atorvastatin 40 mg Tablet 20 MG PO (10:46)
[2024-05-01] MEDS: amiodarone 200 mg Tablet PO (10:46)
[2024-05-01] MEDS: levothyroxine 100 mcg Tablet PO (10:47)
[2024-05-01] MEDS: metoprolol succinate ER (24 HR) 25 mg Tablet 12.5 MG PO (10:47)
[2024-05-01] MEDS: aspirin 81 mg EC Tablet PO (10:47)
[2024-05-01] MEDS: dexamethasone 10 mg/mL INJ 6 MG IVP (10:47)
[2024-05-01] MEDS: sacubitril/valsartan 24-26 mg Tablet 1 EACH PO (10:57)
--- NOTE | 2024-05-01 12:23 | PC.OT ---
Patient getting a MBS at this time. Will attempt OT evaluation later if possible. Angel Simmons, OTR/L
--- NOTE | 2024-05-01 13:00 | FL_ITS ---
WS: [id number] FL barium swallow modifd [id number] REASON FOR EXAM: Oral dysphagia FLUOROSCOPY TIME: 2min [id number] # OF SPOT FILMS: None FINDINGS: The examination was supervised by the speech therapy department. The patient was examined in the sitting upright lateral projection. Swallowing of varying consistenci es of barium with monitored fluoroscopically and video recorded. A detailed report of the swallowing will be rendered by the speech therapy department. 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 There was dysmotility in the thoracic esophagus and a hiatal hernia. FL/FL barium swallow modifd [id number] IMPRESSION: Modified barium swallow as above. Zenker's diverticulum. Thoracic esophageal dysmotility and hiatal hernia.
--- NOTE | 2024-05-01 14:02 | PM.DCS ---
Discharge Providers Date of Admission: 04/26/24 19:54 Date of Discharge: May 01, 2024 Attending Provider at Admission: Rl Abraham MD Attending Provider at Discharge: Rl Abraham MD Primary Care Provider: Sun Cox MD Diagnoses at Discharge Discharge Diagnosis (1) Acute hypoxic respiratory failure: Status: Acute (2) Chest pain: Status: Acute (3) Pneumonia due to COVID-19 virus: Status: Acute (4) Congestive heart failure: Status: Acute (5) Aspiration pneumonia: Status: Acute Reason for Visit Reason for Visit: sob Hospital Course Hospital Course Mmeo Salazar is a 88 year old male with a past medical history of pacemaker placement/AICD, history of mitral valve replacement therapy, on Coumadin, congestive heart failure, COPD on 2 L at home, who presents [facility] due to shortness of breath, wheezing, cough. Patient tells me that whenever he eats, he tends to have episodes of choking and coughing, globus sensation, he tells me recently has been feeling increasingly short of breath, productive cough, yellow-green sputum, no lower extremity edema does report chest pressure, reports a fever today Patient had a complicated hospital course please look at my last progress note for detail Patient was admitted to [facility] for acute hypoxic respiratory failure, multifactorial from COVID-19 pneumonia, aspiration pneumonia/aspiration pneumonitis, CHF exacerbation For COVID-19 pneumonia, received inpatient treatment and Decadron, received remdesivir, clinically monitored and remained afebrile, discharged home with instructions to continue to self isolate, socially distance, facemask, hand wash, monitor for hypercoagulable events For his CHF exacerbation, CONCLUSIONS LV systolic function is severely reduced with EF of 10 to 15%. Biatrial enlargement. 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 No significant stenosis. Moderate tricuspid regurgitation Moderate pulmonary hypertension Mildly dilated ascending aorta with diameter 3.53 cm. Compared to prior echocardiogram from 2021, LV systolic function has decreased significantly. -Received inpatient diuresis -Overall clinically improved -Patient does need that his EF is about 18%, the last time he followed up with cardiology -He knows that he has low ejection fraction, he now understands morbidity and mortality associated, has AICD in place, -Due to persistent shortness of breath, he was managed with Entresto, with Lasix -Overall no significant symptomatology of lightheadedness or dizziness, no significant hypotensive episodes -we will discharge him on low-dose Entresto twice daily with close follow-up with his respiratory care technician in [place] -I had a detailed discussion with patient and his his son at bedside about his morbidity and mortality, deconditioning, associated with his CHF, he understands this, his respiratory care technician has had several discussions with him about this, -He tells me that because of his low ejection fraction, his respiratory care technician will not clear him for hip replacement, as he would in his terms likely on the table from any type of surgery -He wants to continue medical interventions for now -Advised him if he has any chest pain or shortness of breath to go to emergency room Patient's hospitalization was complicated with acute aspiration pneumonia/aspiration pneumonitis -Managed with broad-spectrum antibiotic therapy -Kept on a dysphagia level 4 diet -His modified barium swallow does show evidence of Zenker's diverticulum -I had a detailed discussion with patient about what a Zenker's diverticulum is -Given his age, his EF of 10 to 15%, currently he is not a surgical candidate -He will have to monitor for chocking and coughing, monitor for risk of aspiration, aspiration pneumonitis, -If any significant symptomatology come to the hospital -advised that as he is not a surgical candidate currently, he does have a risk of aspiration pneumonia, aspiration pneumonitis more morbidity mortality associated, he voices understanding, all questions answered Complaints of chest pressure on admission, none during his hospitalization, medically managed For his Coumadin dosing, his INR had decreased during his hospitalization to 1.86 -Plan is to increase his Coumadin dosing -Will increase to 5 mg Tuesday through Tuesday, 2.5 mg Tuesday -Recheck INR on Tuesday through primary care His digoxin levels were elevated 0.7, adjusted his oxygen to 125 mcg every other day Physical Exam Const: COMMON NORMALS: no acute distress and patient oriented x3 Resp: COMMON NORMALS: normal respiratory effort, No retractions, No use of accessory muscles and clear to auscultation bilaterally AUSCULTATION: clear to auscultation bilaterally Cardio: COMMON NORMALS: regular rate, regular rhythm, S1 normal heart sound present and S2 normal heart sound present RATE: regular rate RHYTHM: regular rhythm HEART SOUNDS: S1 normal heart sound present and S2 normal heart sound present GI: COMMON NORMALS: Normal to inspection, nondistended, normoactive bowel sounds present and non-tender Extremity: COMMON NORMALS: no calf tenderness and no pedal edema Neuro: COMMON NORMALS: patient oriented x3 Psych: COMMON NORMALS: mental status grossly normal Discharge Data Studies Completed and Pending Completed Studies During Hospitalization Category Date Time Status CT chest wo con [id number] Stat Cat Scan 04/26/24 18:41 Completed XR chest 1V portable [id number] Stat Exams 04/26/24 16:58 Completed CV. echo complete* [id number] Stat Ultrasound 04/26/24 18:41 Completed Pending at discharge Category Date Time Status FL barium swallow modifd [id number] Stat Exams 05/01/24 13:00 Taken Blood Culture Stat Lab 04/26/24 17:17 Results Complete Blood Count w/Auto AM LABS Lab 05/02/24 04:00 Ordered Complete Blood Count w/Auto AM LABS Lab 05/03/24 04:00 Ordered Comprehensive Metabolic Panel AM LABS Lab 05/02/24 04:00 Ordered Comprehensive Metabolic Panel AM LABS Lab 05/03/24 04:00 Ordered Radiology Impressions Chest X-Ray 04/26/24 16:58 IMPRESSION: No acute findings. Chest CT 04/26/24 18:41 IMPRESSION: 1. No focal consolidations or pulmonary edema. 2. Severe cardiomegaly and unchanged small pericardial effusion. 3. Moderately sized hiatal hernia with dilation of the distal esophagus. Findings can be correlated with esophagram if clinically indicated. Laboratory Results WBC 10.75 10^3/uL (3.29-11.43) 05/01/24 04:32 RBC 3.84 10^6/uL (3.85-5.65) L 05/01/24 04:32 Hgb 11.60 g/dL (11.27-16.99) 05/01/24 04:32 Hct 36.2 % (37-53) L 05/01/24 04:32 MCV 94.3 fl (82-101) 05/01/24 04:32 MCH 30.2 pg (27-33) 05/01/24 04:32 MCHC 32.0 g/dL (30-55) 05/01/24 04:32 RDW 15.6 % (12.1-15.1) H 05/01/24 04:32 Plt Count 238 10^3/cmm (157-399) 05/01/24 04:32 MPV 10.8 fL (7.4-10.4) H 05/01/24 04:32 Neut % (Auto) 81.3 % 05/01/24 04:32 Lymph % (Auto) 7.1 % 05/01/24 04:32 [place] % (Auto) 10.8 % 05/01/24 04:32 Eos % (Auto) 0.0 % 05/01/24 04:32 Baso % (Auto) 0.1 % 05/01/24 04:32 Neut # (Auto) 8.74 10^3/uL (1.8-7.7) H 05/01/24 04:32 Lymph # (Auto) 0.8 10^3/uL (0.8-4.8) 05/01/24 04:32 [place] # (Auto) 1.2 10^3/uL (0.2-0.9) H 05/01/24 04:32 Eos # (Auto) 0.0 10^3/uL (0.0-0.8) 05/01/24 04:32 Baso # (Auto) 0.0 10^3/uL (0.0-0.1) 05/01/24 04:32 Nucleated RBC % (auto) 0 % 05/01/24 04:32 Nucleated RBCs # 0.0 /100WBC 05/01/24 04:32 ESR 50 mm/hr (0-10) H 04/26/24 17:10 PT 22.10 SECONDS (12.1-14.9) H 05/01/24 04:32 INR 1.86 (0.8-1.2) H 05/01/24 04:32 Sodium 138 mmol/L (136-145) 05/01/24 04:32 Potassium 4.1 mmol/L (3.5-5.1) 05/01/24 04:32 Chloride 95 mmol/L (98-107) L 05/01/24 04:32 Carbon Dioxide 29 mmol/L (22-29) 05/01/24 04:32 Anion Gap 18.1 (5-19) 05/01/24 04:32 BUN 39 mg/dL (8-23) H 05/01/24 04:32 Creatinine 1.2 mg/dL (0.7-1.2) 05/01/24 04:32 GFR Calculation Not Reportable 05/01/24 04:32 Glucose 109 mg/dL (65-115) 05/01/24 04:32 Estimat Average Glucose 108 04/26/24 17:10 Hemoglobin A1c 5.4 % (4.0-6.0) 04/26/24 17:10 Calculated Osmolality 296 mOsm/kg (285-295) H 05/01/24 04:32 Lactic Acid 2.3 mmol/L (0.5-2.2) H 04/26/24 17:10 Lactic Acid (Sepsis) 3.3 mmol/L (0.5-2.2) H 04/26/24 20:51 Calcium 8.8 mg/dL (8.5-10.5) 05/01/24 04:32 Phosphorus 2.0 mg/dL (2.5-4.5) L 04/27/24 02:35 Magnesium 2.2 mg/dL (1.7-2.3) 04/27/24 02:35 Total Bilirubin 0.9 mg/dL (0.15-1.2) 05/01/24 04:32 AST 23 U/L (0-40) 05/01/24 04:32 ALT 25 U/L (0-41) 05/01/24 04:32 Alkaline Phosphatase 76 U/L (40-130) 05/01/24 04:32 Troponin T Baseline 51 ng/L (0-15) H 04/26/24 17:10 Troponin T 120 Minute 46.33 ng/L (0-15) H 04/26/24 21:57 Delta Troponin T -4.67 ABS# (0-10) L 04/26/24 21:57 Troponin T Hi Sens 6Hr 41.05 ng/L (0-15) H 04/27/24 00:19 Troponin T Hi Sens 6Hr Delta -9.95 ng/L (0-12) L 04/27/24 00:19 C-Reactive Protein 12.5 mg/L (0.0-4.9) H 05/01/24 04:32 NT-Pro-B Natriuret Pep 4604 pg/mL (0-450) H 05/01/24 04:32 Total Protein 6.8 g/dL (6.6-8.7) 05/01/24 04:32 Albumin 4.1 g/dL (3.5-5.2) 05/01/24 04:32 Globulin 2.7 g/dL (1.3-4.6) 05/01/24 04:32 Triglycerides 100 mg/dL (0-150) 04/26/24 17:10 Cholesterol 146 mg/dL (0-200) 04/26/24 17:10 LDL Cholesterol, Calc 83 mg/dL (50-129) 04/26/24 17:10 HDL Cholesterol 43 mg/dL (60-100) L 04/26/24 17:10 LDL/HDL Ratio 1.93 RATIO (0.00-3.22) 04/26/24 17:10 Cholesterol/HDL Ratio 3.40 mg/dL (1.0-5.00) 04/26/24 17:10 Procalcitonin 0.05 ng/mL (0-0.5) 05/01/24 04:32 TSH 2.42 uIU/mL (0.27-4.20) 04/26/24 17:10 Urine Color Yellow (Yellow) 04/27/24 14:59 Urine Appearance Clear (CLEAR) 04/27/24 14:59 Urine pH 5.5 (5-7) 04/27/24 14:59 Ur Specific [employer] 1.009 (1.005-1.030) 04/27/24 14:59 Urine Protein Negative (Negative) 04/27/24 14:59 Urine Glucose (UA) Negative (Normal) 04/27/24 14:59 Urine Ketones Negative (Negative) 04/27/24 14:59 Urine Blood Negative (Negative) 04/27/24 14:59 Urine Nitrate Negative (Negative) 04/27/24 14:59 Urine Bilirubin Negative (Negative) 04/27/24 14:59 Urine Urobilinogen 1.0 mg/dL (Negative) 04/27/24 14:59 Ur Leukocyte Esterase Negative (Negative) 04/27/24 14:59 Amorphous Sediment Not Reportable 04/27/24 14:59 Digoxin 1.2 ng/mL (0.6-1.2) 04/28/24 02:47 Adenovirus (PCR) Not detected (NOT DETECT) 04/27/24 13:10 C. pneumoniae DNA (PCR) Not detected (NOT DETECT) 04/27/24 13:10 Coronavirus 229E (PCR) Not detected (NOT DETECT) 04/27/24 13:10 Human Metapneumovir PCR Not detected (NOT DETECT) 04/27/24 13:10 Influenza A (H1) PCR Not detected (NOT DETECT) 04/27/24 13:10 Influ A (H1/09) PCR Not detected (NOT DETECT) 04/27/24 13:10 Influenza A (H3) PCR Not detected (NOT DETECT) 04/27/24 13:10 Influenza Type A (PCR) Not detected (NOT DETECT) 04/27/24 13:10 Influenza Type B (PCR) Not detected (NOT DETECT) 04/27/24 13:10 M. pneumoniae (PCR) Not detected (NOT DETECT) 04/27/24 13:10 Parainfluenza 1 (PCR) Not detected (NOT DETECT) 04/27/24 13:10 Parainfluenza 2 (PCR) Not detected (NOT DETECT) 04/27/24 13:10 Parainfluenza 3 (PCR) Not detected (NOT DETECT) 04/27/24 13:10 Parainfluenza 4 (PCR) Not detected (NOT DETECT) 04/27/24 13:10 RSV Type A (PCR) Not detected (NOT DETECT) 04/27/24 13:10 RSV Type B (PCR) Not detected (NOT DETECT) 04/27/24 13:10 Entero/Rhino (PCR) Not detected (NOT DETECT) 04/27/24 13:10 SARS-CoV-2 (PCR) Detected (NOT DETECT) A 04/27/24 13:10 SARS-CoV-2 Ag (Rapid) negative (Negative) 04/26/24 17:40 Vitals Last Vital Signs Temp 97.6 F 05/01/24 11:21 Pulse 76 05/01/24 11:21 Resp 21 H 05/01/24 11:21 BP 103/59 05/01/24 11:21 Pulse Ox 96 05/01/24 11:21 O2 Del Method Nasal Cannula 05/01/24 11:21 O2 Flow Rate 2 05/01/24 05:36 Discharge Plan Discharge Patient Disposition: Home Condition: Stable Prescriptions: New Entresto 24-26 mg Tablet 1 tab PO Q12H 30 Days Qty: 60 0RF amoxicillin-pot clavulanate 875-125 mg tablet 1 tab PO BID 5 Days Qty: 10 0RF Continued lovastatin 40 mg tablet 40 mg PO DAILY amiodarone 200 mg tablet See Rx Instructions .ROUTE .COMPLEX Rx Instructions: 200 mg orally TUESDAY THROUGH TUESDAY omeprazole 40 mg capsule,delayed release(DR/EC) 40 mg PO DAILY albuterol sulfate 2.5 mg /3 mL (0.083 %) Solution For Nebulization 2.5 mg INHALATION Q4H PRN (Reason: Shortness Of Breath) metoprolol succinate 25 mg tablet extended release 24 hr 12.5 mg PO DAILY levothyroxine 100 mcg tablet 100 mcg PO DAILY acetaminophen 500 mg Tablet 500 mg PO QAM Rx Instructions: TAKES WITH ULTRAM magnesium 250 mg Tablet 250 mg PO DAILY albuterol sulfate 90 mcg/actuation Hfa Aerosol Inhaler 2 puff INHALATION QID PRN (Reason: Shortness Of Breath) furosemide 20 mg Tablet 40 mg PO QAM 30 Days Qty: 30 0RF Pulmicort Flexhaler 180 mcg/actuation aerosol powdr breath activated 1 inh inhalation BID Qty: 1 0RF potassium chloride [K-Tab] 10 mEq tablet extended release 20 meq PO DAILY Qty: 30 0RF albuterol sulfate [Proventil HFA] 90 mcg/actuation HFA aerosol inhaler 1 inh inhalation Q6H PRN (Reason: shortness of breath or wheezing) Qty: 6.7 1RF Changed warfarin 5 mg tablet See Rx Instructions .ROUTE .COMPLEX Qty: 60 0RF Rx Instructions: 5MG PO AT NIGHT ON TUE through TUE 2.5MG PO AT NIGHT ON SAT AND SUN digoxin 125 mcg (0.125 mg) tablet 125 mcg PO EVERY OTHER DAY 30 Days Qty: 15 0RF tramadol 50 mg tablet 50 mg PO QAM PRN (Reason: pain) 7 Days Qty: 7 0RF Discharge Orders: Discharge Order (Routine); Ordered 05/01/24 Ordered By: Rl Abraham Referrals: Sun Cox MD [Primary Care Provider] - 05/07/24 1:30 pm Discharge Diet: Cardiac Discharge Activity: Resume usual activity Patient Instructions: Amoxicillin (By mouth) (Amoxicot, Amoxil, Amoxil Pediatric, Trimox,..., Sacubitril/Valsartan (By mouth) (Entresto, Entresto Sprinkle), Chest Pain (DC), Aspiration Pneumonia (DC), Chest Pain Stoplight, Opioid Safety, Pneumonia Stoplight Activity Restrictions/Additional Instructions: - For your Zenker's diverticulum, monitor closely, monitor for recurrent coughing, monitor for risk of aspiration pneumonia, aspiration pneumonitis -For his Coumadin dosing take 5 mg of Coumadin Tuesday through Tuesday, 2.5 mg Tuesday -Please have your primary care provider recheck your INR on Tuesday, INR on discharge 1.86 -If you develop bloody or black stools please go to emergency room -Please use tramadol sparingly for pain, do not drive or operate machinery or drink while taking medication -For your heart failure I discharged you on low-dose Entresto to be used twice daily, if you feel lightheaded or dizzy while taking this medication please stop -Please follow-up with your heart doctor in [place] in 1 week -Please take digoxin 0.125 mg every other day Discharge Attestations Time Spent in Discharge Care*: greater than 30 min Quality Metrics Clinical Quality Measures [ No reported AMI, CVA or VTE this stay] Coding Level of Care Code 36820 Total time (in minutes) for Discharge: 45 Diagnoses Acute hypoxic respiratory failure J96.01 Chest pain R07.9 Pneumonia due to COVID-19 virus U07.1; J12.82 Congestive heart failure I50.9 Aspiration pneumonia J69.0
== END 2024-05-01 15:04 | disposition home or self-care (01) | DRG 177 ==
LOC: ER 18:35 → CSU 20:52 → MEDSURG 04-28 06:52
PROVIDERS: Admitting Provider Family Medicine; Emergency Provider Emergency Medicine; PCP Family Medicine; Visit Provider Family Medicine
DX: U07.1 COVID-19 (principal); I50.21 Acute systolic (congestive) heart failure; J12.82 Pneumonia due to coronavirus disease 2019; J96.01 Acute respiratory failure with hypoxia; J69.0 Pneumonitis due to inhalation of food and vomit; J44.9 Chronic obstructive pulmonary disease, unspecified; E03.9 Hypothyroidism, unspecified; E78.00 Pure hypercholesterolemia, unspecified; Z95.810 Presence of automatic (implantable) cardiac defibrillator; Z95.2 Presence of prosthetic heart valve; Z99.81 Dependence on supplemental oxygen; Z79.01 Long term (current) use of anticoagulants; Z87.01 Personal history of pneumonia (recurrent)
CPT/HCPCS: 36415; 71045; 71250; 74230; 80053; 80061; 80162; 81003; 81015; 83036; 83605; 83735; 83880; 84100; 84145; 84443; 84484; 85025; 85610; 85651; 86140; 87040; 87070; 87205; 87426; 87486; 87581; 87633; 92526; 92610; 92611; 93005; 93306; 94640; 94664; 96376; 97110; J0248; J0456; J0696; J1100; J1940; J2470; J2919; J7050; J7613; J7626; Q0144

== ENCOUNTER 2024-11-20 16:58 | Inpatient (IN) | payer MEDICARE, OTHER, SELFPAY ==
[2024-11-20] VITALS (13 sets, daily range): BP systolic 120–131; BP diastolic 70–81; PULSE 75–78; RESP 16–18; TEMP 24.8–36.9; O2SAT 94–100; BMI 25.8
--- NOTE | 2024-11-20 17:22 | XRR_ITS ---
PROCEDURE INFORMATION: Exam: XR Chest Exam date and time: 11/20/2024 5:31 PM Age: 88 years old Clinical indication: Shortness of breath; Prior surgery; Surgery date: 6+ months; Surgery type: Pacer; Additional info: Dyspnea/cough TECHNIQUE: Imaging protocol: Radiologic exam of the chest. Views: 1 view. COMPARISON: CT chest con [id number] 04/26/2024 7:04 PM FINDINGS: Tubes, catheters and devices: Left pectoral AICD pacer with leads overlying expected location of right ventricle and coronary sinus. Lungs: No focal consolidation Pleural spaces: Unremarkable. No pleural effusion. No pneumothorax. Heart/Mediastinum: Severe cardiomegaly. Changes of prior TAVR. Bones/joints: Unremarkable. XR/XR chest 1V portable [id number] IMPRESSION: 1. No acute intrathoracic findings. 2. Severe cardiomegaly, stable.
--- NOTE | 2024-11-20 17:23 | ECG_ITS ---
[facility] Date: 2024-11-20 Pat Name: Meom Salazar Department: Room: Gender: Male [place] Carter: : 1935 Requested By: Rahul Liu Order Number: [id number] Alexander MD: DAYANA CONTRERAS Measurements Intervals [place] Rate: 75 P: 0 NV: 0 QRS: 260 QRSD: 202 T: 46 QT: 461 QTc: 515 Interpretive Statements ELECTRONIC VENTRICULAR PACEMAKER ABNORMAL RHYTHM ECG Compared to ECG 04/27/2024 00:17:05 No significant changes Electronically Signed On 11-20-2024 23:32:47 EMERGENCY MEDICINE PHYSICIAN ASSISTANT by DAYANA CONTRERAS [email or web address] [id number]
--- NOTE | 2024-11-20 17:27 | ED_ITS ---
Documented by User: Rahul Duran, 11/21/24 06:06 HPI - SOB/Dyspnea 2 General: Chief Complaint: Shortness of Breath/Dyspnea Stated Complaint: SOB Time Seen by Provider: 11/20/24 17:14 History of Present Illness: HPI Narrative: 88-year-old male presents emergency room complaining of onset of worsening dyspnea and orthopnea for the last 3 to 4 days. He will go to bed at night lying flat after a few hours he wakes up struggling to breathe and is asleep the rest of the night of the clot in the recliner. He has an ICD has a history of cardiomyopathy. He has not previously had any strokes or heart attacks he is uncertain of the etiology of his cardiomyopathy. He is normally on 2 to 3 L/min of nasal cannula. He is not a former smoker no recent fever sweats chills productive cough no hemoptysis no chest pain. Sees cardiology in [place] he has appointment scheduled for tomorrow. Associated symptoms: Reports orthopnea; Deny abdominal pain, chest pain or fever(s) Related Data Home Medications ?Medication ?Instructions ?Recorded ?Confirmed amiodarone 200 mg tablet See Rx Instructions .Route . COMPLEX 02/17/22 04/26/24 lovastatin 40 mg tablet 40 mg PO DAILY 02/17/22 0810/19 omeprazole 40 mg capsule,delayed 40 mg PO DAILY 04/26/24 release albuterol sulfate 2.5 mg/3 mL 2.5 mg inhalation Q4H OH N 04/21/22 04/26/24 (0.083 %) solution for nebulization Shortness Of Breat h metoprolol succinate 25 mg 12.5 mg PO DAILY 04/21/22 0 04/26/24 tablet,extended release 24 hr acetaminophen 500 mg tablet 500 mg PO QAM 08/26/2210/19 albuterol sulfate 90 mcg/actuation 2 puff inhalation Q ID PRN 08/26/22 04/26/24 aerosol inhaler Shortness Of Breath levothyroxine 100 mcg tablet 100 mcg PO DAILY 08/26/22 04/26/24 magnesium 250 mg tablet 250 mg PO DAILY 08/26/2210/19 Previous Rx's ?Medication ?Instructions ?Recorded albuterol sulfate 90 mcg/actuation 1 inh inhalation Q6 H PRN shortness 08/29/22 aerosol inhaler (Proventil HFA) of breath or wheezing #6.7 grams budesonide 180 mcg/actuation 1 inh inhalation BID #1 e a 08/29/22 breath activated powder inhaler (Pulmicort Flexhaler) furosemide 20 mg tablet 40 mg (2 x 20 mg) PO QAM 30 days 08/29/22 #30 tabs potassium chloride 10 mEq 20 meq (2 x 10 mEq) PO DAILY #30 08/29/22 tablet,extended release (K-Tab) tabs digoxin 125 mcg (0.125 mg) tablet 125 mcg PO EVERY OTH ER DAY 30 days 05/01/24 #15 tabs tramadol 50 mg tablet 50 mg PO QAM PRN pain 7 days #7 05/01/24 tabs warfarin 5 mg tablet See Rx Instructions .Route 0 05/01/24 .COMPLEX #60 tabs Allergies Allergy/AdvReac Type Severity Reaction Status Date / Time No Known Allergies Allergy Verified 11/20/24 17:20 Review of Systems 2 Const: Denies: fever(s) or chills Card: Reports: dyspnea on exertion and orthopnea; Denies: chest pain, edema or swelling of feet/ankles Resp: Reports: dyspnea GI: Denies: abdominal pain : Denies: dysuria, urinary frequency or urinary urgency Musc: Denies: neck pain or back pain Skin/Breast: Denies: rash PFSH ED 2 PFSH: Medical History Heart failure Community acquired pneumonia Pacemaker Hypothyroidism High cholesterol COPD (chronic obstructive pulmonary disease) No pertinent family history Pacemaker Surgical History History of mitral valve prosthesis Social History Smoking and tobacco/nicotine status: never used tobacco/nicotine Second hand smoke exposure: No Alcohol intake: never Substance/Drug Use: never Adopted: No Caregiver/support person: Yes Lives independently: No Household members: spouse Housing: House Marital status: Number of children: 3 Number of grandchildren: 5 Highest education level completed: High School Graduate service: No Current occupational status: retired Current occupational exposures/hazards: No Pets and animals: Yes Sexually active: Yes Do you think of yourself as: Straight/Heterosexual Current gender identity: Male Special felicia needs: No Agree to transfusion: Yes Physical Exam 2 Const: GENERAL APPEARANCE: cooperative and comfortable O RIENTATION/CONSCIOUSNESS: Yes awake, Yes oriented to person, Yes oriented to place and Yes oriented to time HENMT: COMMON NORMALS: normocephalic, atraumatic and hearing grossly normal bilaterally HEAD & SCALP: normocephalic and atraumatic Resp: COMMON NORMALS: normal respiratory effort, No retractions, No use of accessory muscles and clear to auscultation bilaterally AUSCULTATION: clear to auscultation bilaterally Cardio: COMMON NORMALS: regular rate, regular rhythm and No murmurs present (Cardio) RATE: regular rate RHYTHM: regular rhythm GI: COMMON NORMALS: Soft to palpation and No hepatosplenomegaly present A USCULTATION: Yes normoactive bowel sounds PALPATION: Yes Soft to palpation, No Tenderness to palpation present (GI), No Guarding due to palpation present (GI) and Yes No hepatosplenomegaly present Extremity: COMMON NORMALS: normal to inspection, capillary refill normal, no clubbing, cyanosis or edema, no calf tenderness and no pedal edema Neuro: SENSORIUM/ORIENTATION: Yes oriented to person, Yes oriented to place and Yes oriented to time Skin: COMMON NORMALS: no rashes or lesions noted GENERAL SKIN EXAM: no rashes or lesions noted Course 2 Vital Signs: Vital signs: Vital Signs Temperature 97.8 F 11/21/24 03:51 Pulse Rate 76 11/21/24 05:29 Respiratory Rate 16 11/21/24 03:51 Blood Pressure 132/80 11/21/24 03:51 Pulse Oximetry 100 11/21/24 03:51 Oxygen Delivery Me thod Nasal Cannula 11/21/24 03:31 Oxygen Flow Rate 3 11/21/24 03:31 MDM - SOB/Dyspnea Medical Records Care signed out to Dr. Flower at change of shift. See final notes for diagnosis and disposition. Lab Data 11/21/24 03:45 11/21/24 03:45 Labs/Radiology: Radiology Impressions Chest X-Ray 11/20/24 17:22 IMPRESSION: 1. No acute intrathoracic findings. 2. Severe cardiomegaly, stable. Laboratory Results WBC 6.69 10^3/uL (3.29-11.43) 11/20/24 17:38 RBC 2.42 10^6/uL (3.85-5.65) L 11/20/24 17:38 Hgb 6.90 g/dL (11.27-16.99) L 11/20/24 17:38 Hct 23.1 % (37-53) L 11/20/24 17:38 MCV 95.5 fl (82-101) 11/20/24 17:38 MCH 28.5 pg (27-33) 11/20/24 17:38 MCHC 29.9 g/dL (30-55) L 11/20/24 17:38 RDW 15.3 % (12.1-15.1) H 11/20/24 17: Plt Count 245 10^3/cmm (157-399) 11/20/24 17: MPV 10.8 fL (7.4-10.4) H 11/20/24 17:38 Neut % (Auto) 74.2 % 11/20/24 17:38 Lymph % (Auto) 13.2 % 11/20/24 17:38 Dawes % (Auto) 10.2 % 11/20/24 17:38 Eos % (Auto) 1.8 % 11/20/24 17:38 Baso % (Auto) 0.3 % 11/20/24 17:38 Neut # (Auto) 4.97 10^3/uL (1.8-7.7) 11/20/24 17:38 Lymph # (Auto) 0.9 10^3/uL (0.8-4.8) 11/20/24 17:38 Dawes # (Auto) 0.7 10^3/uL (0.2-0.9) 11/20/24 17:38 Eos # (Auto) 0.1 10^3/uL (0.0-0.8) 11/20/24 17:38 Baso # (Auto) 0.0 10^3/uL (0.0-0.1) 11/20/24 17:38 Nucleated RBC % (auto) 0 % 11/20/24 17: Nucleated RBCs # 0.0 /100WBC 11/20/24 17: PT 27.90 SECONDS (12.1-14.9) H 11/20/24 17:38 INR 2.44 (0.8-1.2) H 11/20/24 17:38 Specimen Type Arterial 11/20/24 17:22 Sample Site Radial, left 11/20/24 17:22 ABG pH 7.43 (7.35-7.45) 11/20/24 17:22 ABG pCO2 41.2 mmHg (35-45) 11/20/24 17:22 ABG pO2 81.2 mmHg (80.0-100.0) 11/20/24 17:22 ABG HCO3 27.0 mmol/L (22-26) H 11/20/24 17:22 ABG O2 Saturation 97.6 11/20/24 17:22 ABG Base Excess 2.4 mmol/L (-2.0-2.0) H 11/20/24 17:22 Lazaro Test Pos 11/20/24 17:22 A-a O2 Gradient 2.1 mmHg (5-10) L 11/20/24 17:22 Hematocrit 21.8 % (42-52) L 11/20/24 17:22 Hgb O2 Saturation 95.0 % (95-100) 11/20/24 17:22 Carboxyhemoglobin 1.4 %THgb (0.4-20.1) 11/20/24 17:22 Methemoglobin 1.2 % (0.4-1.5) 11/20/24 17:22 Total Hemoglobin 7.1 g/dL (14-18) L 11/20/24 17:22 Sodium 139.0 mmol/L (131-143) 11/20/24 17:22 Potassium 4.3 mmol/L (3.5-5.0) 11/20/24 17:22 Glucose 110.0 mg/dL (70-115) 11/20/24 17:22 Ionized Calcium 1.1 mmol/L (1.1-1.4) 11/20/24 17:22 O2 Delivery Device Nc 11/20/24 17:22 O2 Liters/Min 2.0 % 11/20/24 17:22 Chief Payroll Clerk ID Walci 11/20/24 17:22 Sodium 136 mmol/L (136-145) 11/20/24 17:38 Potassium 4.5 mmol/L (3.5-5.1) 11/20/24 17:38 Chloride 101 mmol/L (98-107) 11/20/24 17:38 Carbon Dioxide 26 mmol/L (22-29) 11/20/24 17:38 Anion Gap 13.5 (5-19) 11/20/24 17:38 BUN 25 mg/dL (8-23) H 11/20/24 17:38 Creatinine 1.2 mg/dL (0.7-1.2) 11/20/24 17:38 GFR Calculation Not Reportable 11/20/24 17:38 Glucose 105 mg/dL (65-115) 11/20/24 17:38 Calculated Osmolality 287 mOsm/kg (285-295) 11/20/24 17:38 Calcium 8.3 mg/dL (8.5-10.5) L 11/20/24 17:38 Total Bilirubin 0.8 mg/dL (0.15-1.2) 11/20/24 17:38 AST 15 U/L (0-40) 11/20/24 17:38 ALT 10 U/L (0-41) 11/20/24 17:38 Alkaline Phosphatase 77 U/L (40-130) 11/20/24 17:38 NT-Pro-B Natriuret Pep 5366 pg/mL (0-450) H 11/20/24 17:38 Total Protein 6.6 g/dL (6.6-8.7) 11/20/24 17:38 Albumin 3.9 g/dL (3.5-5.2) 11/20/24 17:38 Globulin 2.7 g/dL (1.3-4.6) 11/20/24 17:38 Vitamin B12 393 pg/mL (232-1245) 11/20/24 17:38 Procalcitonin 0.03 ng/mL (0-0.5) 11/20/24 17:38 Digoxin 1.6 ng/mL (0.6-1.2) H 11/20/24 17:38 Influenza A (PCR) Negative (Negative) 11/20/24 18:17 Influenza Type B (PCR) Negative (Negative) 11/20/24 18:17 RSV (PCR) Negative (Negative) 11/20/24 18:17 SARS-CoV-2 (PCR) Negative (Negative) 11/20/24 18:17 Blood Type O Positive 11/20/24 19:02 Rho(D) Type Rh positive 11/20/24 19:02 Antibody Screen Negative 11/20/24 19:02 Crossmatch See Detail 11/20/24 19:02 Discharge Plan Discharge Patient Disposition: Placed in Observation Admit Provider: Demetrice Garcia Clinical Impression: Anemia, Congestive heart failure, Chronic hypoxemic respiratory failure, Chronic anticoagulation Coding Level of Care Code ED Aircraft Engine Mechanic Supervisor for Chg Fwd Documented by User: Grace Flower MD 11/20/24 20:02 HPI - SOB/Dyspnea 2 General: Chief Complaint: Shortness of Breath/Dyspnea Stated Complaint: SOB Time Seen by Provider: 11/20/24 17:14 Related Data Home Medications ?Medication ?Instructions ?Recorded ?Confirmed amiodarone 200 mg tablet See Rx Instructions .Route . COMPLEX 02/17/22 04/26/24 lovastatin 40 mg tablet 40 mg PO DAILY 02/17/2210/19 omeprazole 40 mg capsule,delayed 40 mg PO DAILY 04/26/24 release albuterol sulfate 2.5 mg/3 mL 2.5 mg inhalation Q4H OH N 04/21/22 04/26/24 (0.083 %) solution for nebulization Shortness Of Breat h metoprolol succinate 25 mg 12.5 mg PO DAILY 04/21/22 0 04/26/24 tablet,extended release 24 hr acetaminophen 500 mg tablet 500 mg PO QAM 08/26/2210/19 albuterol sulfate 90 mcg/actuation 2 puff inhalation Q ID PRN 08/26/22 04/26/24 aerosol inhaler Shortness Of Breath levothyroxine 100 mcg tablet 100 mcg PO DAILY 08/26/22 04/26/24 magnesium 250 mg tablet 250 mg PO DAILY 08/26/2210/19 Previous Rx's ?Medication ?Instructions ?Recorded albuterol sulfate 90 mcg/actuation 1 inh inhalation Q6 H PRN shortness 08/29/22 aerosol inhaler (Proventil HFA) of breath or wheezing #6.7 grams budesonide 180 mcg/actuation 1 inh inhalation BID #1 e a 08/29/22 breath activated powder inhaler (Pulmicort Flexhaler) furosemide 20 mg tablet 40 mg (2 x 20 mg) PO QAM 30 days 08/29/22 #30 tabs potassium chloride 10 mEq 20 meq (2 x 10 mEq) PO DAILY #30 08/29/22 tablet,extended release (K-Tab) tabs digoxin 125 mcg (0.125 mg) tablet 125 mcg PO EVERY OTH ER DAY 30 days 05/01/24 #15 tabs tramadol 50 mg tablet 50 mg PO QAM PRN pain 7 days #7 05/01/24 tabs warfarin 5 mg tablet See Rx Instructions .Route 0 05/01/24 .COMPLEX #60 tabs Allergies Allergy/AdvReac Type Severity Reaction Status Date / Time No Known Allergies Allergy Verified 11/20/24 17:20 PFSH ED 2 PFSH: Medical History Heart failure Community acquired pneumonia Pacemaker Hypothyroidism High cholesterol COPD (chronic obstructive pulmonary disease) No pertinent family history Pacemaker Surgical History History of mitral valve prosthesis Social History Smoking and tobacco/nicotine status: never used tobacco/nicotine Second hand smoke exposure: No Alcohol intake: never Substance/Drug Use: never Adopted: No Caregiver/support person: Yes Lives independently: No Household members: spouse Housing: House Marital status: Number of children: 3 Number of grandchildren: 5 Highest education level completed: High School Graduate service: No Current occupational status: retired Current occupational exposures/hazards: No Pets and animals: Yes Sexually active: Yes Do you think of yourself as: Straight/Heterosexual Current gender identity: Male Special felicia needs: No Agree to transfusion: Yes Course 2 Vital Signs: Vital signs: Vital Signs Temperature 97.8 F 11/21/24 03:51 Pulse Rate 76 11/21/24 05:29 Respiratory Rate 16 11/21/24 03:51 Blood Pressure 132/80 11/21/24 03:51 Pulse Oximetry 100 11/21/24 03:51 Oxygen Delivery Me thod Nasal Cannula 11/21/24 03:31 Oxygen Flow Rate 3 11/21/24 03:31 MDM - SOB/Dyspnea Medical Decision Making Care signed out to Dr. Flower at change of shift. See final notes for diagnosis and disposition. Chest x-ray: Nothing acute. Severe cardiomegaly. AICD in place. This was reviewed and interpreted by myself the emergency room physician. I also reviewed the radiology report. Lab review: Labs reviewed and interpreted by myself the emergency room physician. Patient is anemic with hemoglobin 6.9. This is significantly down from 11 previously. Transfusing as he does have a coronary history. And he is symptomatic. proBNP is up as well and his BUN is down so I think this may be also some congestive heart failure. Consultation: I spoke with Dr. Garcia who is on-call for the hospitalist service who agrees to admission. Assessment and plan: Anemia Congestive heart failure Orthopnea and dyspnea Chronic hypoxemic respiratory failure Chronic anticoagulation on Coumadin ?2 units PRBCs ordered. Patient will also need some diuresis. Admit to the hospitalist service -IV Protonix -I discussed the patient with the hospitalist on-call who is admitting the patient. - Discussed findings and plan with patient. Answered any questions. - All laboratory values were reviewed and interpreted personally by myself, the ER physician - All imaging was reviewed and interpreted personally by myself, the ER physician. - Evaluation and treatment of this problem were appropriate in the emergency setting Lab Data 11/21/24 03:45 11/21/24 03:45 Labs/Radiology: Radiology Impressions Chest X-Ray 11/20/24 17:22 IMPRESSION: 1. No acute intrathoracic findings. 2. Severe cardiomegaly, stable. Laboratory Results WBC 6.69 10^3/uL (3.29-11.43) 11/20/24 17:38 RBC 2.42 10^6/uL (3.85-5.65) L 11/20/24 17:38 Hgb 6.90 g/dL (11.27-16.99) L 11/20/24 17:38 Hct 23.1 % (37-53) L 11/20/24 17:38 MCV 95.5 fl (82-101) 11/20/24 17:38 MCH 28.5 pg (27-33) 11/20/24 17:38 MCHC 29.9 g/dL (30-55) L 11/20/24 17:38 RDW 15.3 % (12.1-15.1) H 11/20/24 17:38 Plt Count 245 10^3/cmm (157-399) 11/20/24 17: MPV 10.8 fL (7.4-10.4) H 11/20/24 17:38 Neut % (Auto) 74.2 % 11/20/24 17: Lymph % (Auto) 13.2 % 11/20/24 17:38 Dawes % (Auto) 10.2 % 11/20/24 17: Eos % (Auto) 1.8 % 11/20/24 17: Baso % (Auto) 0.3 % 11/20/24 17: Neut # (Auto) 4.97 10^3/uL (1.8-7.7) 11/20/24 17:38 Lymph # (Auto) 0.9 10^3/uL (0.8-4.8) 11/20/24 17:38 Dawes # (Auto) 0.7 10^3/uL (0.2-0.9) 11/20/24 17: Eos # (Auto) 0.1 10^3/uL (0.0-0.8) 11/20/24 17: Baso # (Auto) 0.0 10^3/uL (0.0-0.1) 11/20/24 17: Nucleated RBC % (auto) 0 % 11/20/24 17: Nucleated RBCs # 0.0 /100WBC 11/20/24 17: PT 27.90 SECONDS (12.1-14.9) H 11/20/24 17:38 INR 2.44 (0.8-1.2) H 11/20/24 17:38 Specimen Type Arterial 11/20/24 17:22 Sample Site Radial, left 11/20/24 17:22 ABG pH 7.43 (7.35-7.45) 11/20/24 17:22 ABG pCO2 41.2 mmHg (35-45) 11/20/24 17:22 ABG pO2 81.2 mmHg (80.0-100.0) 11/20/24 17:22 ABG HCO3 27.0 mmol/L (22-26) H 11/20/24 17:22 ABG O2 Saturation 97.6 11/20/24 17:22 ABG Base Excess 2.4 mmol/L (-2.0-2.0) H 11/20/24 17:22 Lazaro Test Pos 11/20/24 17:22 A-a O2 Gradient 2.1 mmHg (5-10) L 11/20/24 17:22 Hematocrit 21.8 % (42-52) L 11/20/24 17:22 Hgb O2 Saturation 95.0 % (95-100) 11/20/24 17:22 Carboxyhemoglobin 1.4 %THgb (0.4-20.1) 11/20/24 17:22 Methemoglobin 1.2 % (0.4-1.5) 11/20/24 17:22 Total Hemoglobin 7.1 g/dL (14-18) L 11/20/24 17:22 Sodium 139.0 mmol/L (131-143) 11/20/24 17:22 Potassium 4.3 mmol/L (3.5-5.0) 11/20/24 17:22 Glucose 110.0 mg/dL (70-115) 11/20/24 17:22 Ionized Calcium 1.1 mmol/L (1.1-1.4) 11/20/24 17:22 O2 Delivery Device Nc 11/20/24 17:22 O2 Liters/Min 2.0 % 11/20/24 17:22 Chief Payroll Clerk ID Walci 11/20/24 17:22 Sodium 136 mmol/L (136-145) 11/20/24 17:38 Potassium 4.5 mmol/L (3.5-5.1) 11/20/24 17:38 Chloride 101 mmol/L (98-107) 11/20/24 17:38 Carbon Dioxide 26 mmol/L (22-29) 11/20/24 17:38 Anion Gap 13.5 (5-19) 11/20/24 17:38 BUN 25 mg/dL (8-23) H 11/20/24 17:38 Creatinine 1.2 mg/dL (0.7-1.2) 11/20/24 17:38 GFR Calculation Not Reportable 11/20/24 17:38 Glucose 105 mg/dL (65-115) 11/20/24 17:38 Calculated Osmolality 287 mOsm/kg (285-295) 11/20/24 17:38 Calcium 8.3 mg/dL (8.5-10.5) L 11/20/24 17:38 Total Bilirubin 0.8 mg/dL (0.15-1.2) 11/20/24 17:38 AST 15 U/L (0-40) 11/20/24 17:38 ALT 10 U/L (0-41) 11/20/24 17:38 Alkaline Phosphatase 77 U/L (40-130) 11/20/24 17:38 NT-Pro-B Natriuret Pep 5366 pg/mL (0-450) H 11/20/24 17:38 Total Protein 6.6 g/dL (6.6-8.7) 11/20/24 17:38 Albumin 3.9 g/dL (3.5-5.2) 11/20/24 17:38 Globulin 2.7 g/dL (1.3-4.6) 11/20/24 17:38 Vitamin B12 393 pg/mL (232-1245) 11/20/24 17:38 Procalcitonin 0.03 ng/mL (0-0.5) 11/20/24 17:38 Digoxin 1.6 ng/mL (0.6-1.2) H 11/20/24 17:38 Influenza A (PCR) Negative (Negative) 11/20/24 18:17 Influenza Type B (PCR) Negative (Negative) 11/20/24 18:17 RSV (PCR) Negative (Negative) 11/20/24 18:17 SARS-CoV-2 (PCR) Negative (Negative) 11/20/24 18:17 Blood Type O Positive 11/20/24 19:02 Rho(D) Type Rh positive 11/20/24 19:02 Antibody Screen Negative 11/20/24 19:02 Crossmatch See Detail 11/20/24 19:02 All radiology interpretation(s) finalized by discharge Discharge Plan Discharge Patient Disposition: Placed in Observation Admit Provider: Demetrice Garcia Clinical Impression: Anemia, Congestive heart failure, Chronic hypoxemic respiratory failure, Chronic anticoagulation Coding Level of Care Code ED Aircraft Engine Mechanic Supervisor for Alexandria Burns
[2024-11-20 17:33] LABS: ABG PCO2 41.2 mmHg (35-45); ABG PH Result 7.43 (7.35-7.45); Alveolar-Arterial Oxygen Gradi 2.1 mmHg (5-10); Arterial Blood Gas Hematocrit 21.8 % (42-52); Base Excess ABG 2.4 mmol/L (-2.0-2.0); Blood Gas Allen Test Pos; Blood Gas Operator Identificat WALCI; Blood Gas Sample Site Radial, left; Blood Gas Sample Type Arterial; Carboxyhemoglobin 1.4 %THgb (0.4-20.1); Ionized Calcium Level - ABG 1.1 mmol/L (1.1-1.4); Methemoglobin 1.2 % (0.4-1.5); Oxygen Device NC; Oxygen Saturation ABG 97.6; PO2 ABG 81.2 mmHg (80.0-100.0); Potassium Level - ABG 4.3 mmol/L (3.5-5.0); Total Hemoglobin 7.1 g/dL (14-18)
[2024-11-20 18:05] LABS: Basophils % 0.3 %; Eosinophils # 0.1 10^3/uL (0.0-0.8); Eosinophils % 1.8 %; Hematocrit 23.1 % (37-53); Lymphocytes # 0.9 10^3/uL (0.8-4.8); Lymphocytes % 13.2 %; Mean Corpuscular HGB Conc 29.9 g/dL (30-55); Mean Corpuscular Hemoglobin 28.5 pg (27-33); Mean Corpuscular Volume 95.5 fl (82-101); Mean Platelet Volume 10.8 fL (7.4-10.4); Monocytes # 0.7 10^3/uL (0.2-0.9); Monocytes % 10.2 %; Neutrophils # 4.97 10^3/uL (1.8-7.7); Neutrophils % 74.2 %; Nucleated Red Blood Cells % 0 %; Platelet Count 245 10^3/cmm (157-399); Red Blood Count 2.42 10^6/uL (3.85-5.65); Red Cell Distribution Width 15.3 % (12.1-15.1); White Blood Count 6.69 10^3/uL (3.29-11.43)
[2024-11-20] MEDS: dexamethasone 10 mg/mL INJ IM (18:12)
[2024-11-20 18:24] LABS: INR 2.44 (0.8-1.2)
[2024-11-20 19:23] LABS: Influenza A NEGATIVE (Negative); Influenza B NEGATIVE (Negative); Respiratory Syncytial Virus Ce NEGATIVE (Negative); SARS-CoV-2 PCR NEGATIVE (Negative)
[2024-11-20 19:28] LABS: NT Pro B Type Natriuretic Pept 5366 pg/mL (0-450); Procalcitonin 0.03 ng/mL (0-0.5)
[2024-11-20 19:39] LABS: Alanine Aminotransferase 10 U/L (0-41); Albumin Level 3.9 g/dL (3.5-5.2); Alkaline Phosphatase 77 U/L (40-130); Anion Gap 13.5 (5-19); Aspartate Amino Transferase 15 U/L (0-40); Blood Urea Nitrogen 25 mg/dL (8-23); Calcium 8.3 mg/dL (8.5-10.5); Carbon Dioxide 26 mmol/L (22-29); Chloride 101 mmol/L (98-107); Creatinine Clr Calc Pharmacy 44.9278; Globulin 2.7 g/dL (1.3-4.6); Glucose 105 mg/dL (65-115); Osmolality Calculated 287 mOsm/kg (285-295); Potassium 4.5 mmol/L (3.5-5.1); Sodium 136 mmol/L (136-145); Total Bilirubin 0.8 mg/dL (0.15-1.2); Total Protein 6.6 g/dL (6.6-8.7)
[2024-11-20 20:24] LABS: Hematocrit 24.4 % (37-53)
[2024-11-20] MEDS: pantoprazole 40 mg SDV 80 MG IVP (20:32)
--- NOTE | 2024-11-20 22:43 | PM.HP ---
Providers/Chief Complaint Admitting Physician: Demetrice Garcia MD Primary Care Provider: Radha Jiang NP Chief Complaint: SOB History of Present Illness Memo Salazar is a 88 year old male with extremely reduced EF 15 to 19% status post pacemaker/AICD, came from home with chief complaint of not feeling well and extremely short of breath. Patient is stating that he has been getting short of breath for last few weeks, he has not noticed any fever, chest pain dark-colored stools, melanotic stools or any bleeding at all. He is compliant with his Coumadin and other medications. At baseline patient uses a walker, uses 2 to 3 L of oxygen at home currently on 3 L, hemodynamic stable, workup in the ER revealed hemoglobin of 6.9, repeat H&H showed 7.1, patient will get PRBC, no active sign of bleeding, will add Protonix, patient is not a good candidate to go for EGD or colonoscopy, patient denying previous history of hemorrhoids or ulcers, he is supratherapeutic with INR 2.4, I would not give him FFP considering active CHF, wheezing. Patient is stating that he will get short of breath on minimal exertion, taking a few steps, however he has not experienced any chest pain, recent fever, nausea vomiting diarrhea at all. We have requested 2 unit PRBC, will give Lasix in between, Goals of care discussed, family at the bedside: Patient is DNR/DNI Review of Systems Const: Denies: fever(s) Eyes: Denies: change in vision ENMT: Denies: throat pain Card: Reports: swelling of feet/ankles, dyspnea on exertion and orthopnea Resp: Reports: dyspnea Musc: Reports: back pain Medications/Allergies Home Medications ?Medication ?Instructions ?Recorded ?Confirmed ?Last Taken ?Type amiodarone 200 mg tablet See Rx Instructions .Route .COMPLEX 02/17/22 04/26/24 04/26/24 History lovastatin 40 mg tablet 40 mg PO DAILY 02/17/22 04/26/24 04/21/22 History omeprazole 40 mg capsule,delayed 40 mg PO DAILY 02/17/22 04/26/24 04/21/22 History release albuterol sulfate 2.5 mg/3 mL 2.5 mg inhalation Q4H PRN 04/21/22 04/26/24 Unknown History (0.083 %) solution for nebulization Shortness Of Breath metoprolol succinate 25 mg 12.5 mg PO DAILY 04/21/22 04/26/24 04/21/22 History tablet,extended release 24 hr acetaminophen 500 mg tablet 500 mg PO QAM 08/26/22 04/26/24 04/26/24 History albuterol sulfate 90 mcg/actuation 2 puff inhalation QID PRN 08/26/22 04/26/24 Unknown History aerosol inhaler Shortness Of Breath levothyroxine 100 mcg tablet 100 mcg PO DAILY 08/26/22 04/26/24 Unknown History magnesium 250 mg tablet 250 mg PO DAILY 08/26/22 04/26/24 Unknown History albuterol sulfate 90 mcg/actuation 1 inh inhalation Q6H PRN shortness 08/29/22 04/26/24 Unknown Rx aerosol inhaler (Proventil HFA) of breath or wheezing #6.7 grams budesonide 180 mcg/actuation 1 inh inhalation BID #1 ea 08/29/22 04/26/24 Unknown Rx breath activated powder inhaler (Pulmicort Flexhaler) furosemide 20 mg tablet 40 mg (2 x 20 mg) PO QAM 30 days 08/29/22 04/26/24 Unknown Rx #30 tabs potassium chloride 10 mEq 20 meq (2 x 10 mEq) PO DAILY #30 08/29/22 04/26/24 Unknown Rx tablet,extended release (K-Tab) tabs digoxin 125 mcg (0.125 mg) tablet 125 mcg PO EVERY OTHER DAY 30 days 05/01/24 04/26/24 04/21/22 Rx #15 tabs tramadol 50 mg tablet 50 mg PO QAM PRN pain 7 days #7 05/01/24 Unknown Rx tabs warfarin 5 mg tablet See Rx Instructions .Route 05/01/24 04/26/24 04/21/22 Rx .COMPLEX #60 tabs Allergies Allergy/AdvReac Type Severity Reaction Status Date / Time No Known Allergies Allergy Verified 11/20/24 17:20 PFSH Acute PFSH: Medical History Heart failure Community acquired pneumonia Pacemaker Hypothyroidism High cholesterol COPD (chronic obstructive pulmonary disease) No pertinent family history Pacemaker Surgical History History of mitral valve prosthesis Social History Smoking and tobacco/nicotine status: never used tobacco/nicotine Second hand smoke exposure: No Alcohol intake: never Substance/Drug Use: never Adopted: No Caregiver/support person: Yes Lives independently: No Household members: spouse Housing: House Marital status: Number of children: 3 Number of grandchildren: 5 Highest education level completed: High School Graduate service: No Current occupational status: retired Current occupational exposures/hazards: No Pets and animals: Yes Sexually active: Yes Do you think of yourself as: Straight/Heterosexual Current gender identity: Male Special felicia needs: No Agree to transfusion: Yes Vitals/I&O/Wt Last Vital Signs Temp 76.7 F L 11/20/24 21:41 Pulse 75 11/20/24 21:41 Resp 16 11/20/24 21:41 BP 124/71 11/20/24 21:41 Pulse Ox 97 11/20/24 21:41 O2 Del Method Nasal Cannula 11/20/24 17:00 O2 Flow Rate 3 11/20/24 17:00 11/20/24 11/20/24 11/20/24 06:59 14:59 22:59 Intake Total 0 / 0 Balance 0 / 0 Weight last 48 hrs Weight 77.111 kg Physical Exam Narrative: Active wheezing Currently on 3 L Hemodynamically stable A-fib without RVR, variable S1-S2 Pleasant and cooperative GCS 15 Nonfocal neuroexam No active bleeding signs Abdomen soft Lower extremity 1+ edema Has swelling of upper extremities as well Orthopnea and PND positive Data 11/20/24 20:20 11/20/24 17:38 A&P Assessment and plan (1) Chronic anticoagulation: (2) Congestive heart failure: (3) Anemia: (4) Primary osteoarthritis of right hip: (5) Chronic hypoxemic respiratory failure: Plan Acute macrocytic anemia No active sign of GI bleed Will request stool guaiac test Patient takes Coumadin Supratherapeutic Will request 2 unit PRBC Start Protonix Would not reverse with FFP for now no obvious sign of bleeding noted patient is hemodynamically stable We will give Lasix in between transfusions Considering active wheezing and poor EF patient would not be considered a good candidate to go for colonoscopy or EGD at this point, I would not consult general surgery for now I have requested patient to hold off on Coumadin for now Check B12 Acute systolic reduced EF heart failure exacerbation Continue diuresis Status post pacemaker/AICD Active sign of heart failure present Goal hemoglobin above 8 A-fib without RVR Hold Coumadin Continue AV james blocking agent Metoprolol digoxin and amiodarone, will check digoxin level Supratherapeutic INR: Patient not to be given FFP for now no active sign of active bleeding Hold Coumadin Chronic hypoxia: Patient at baseline uses 3 L, no acute decompensation DNR/DNI Cardiac diet DVT prophylaxis: SCDs for now PDMP PDMP Reviewed: Not Reviewed Attestations Medical Necessity Statement*: Anticipating more than 2 midnights patient will need evaluation for anemia, supratherapeutic INR Coding Level of Care Code Acute Code for Chg Fwd Diagnoses Chronic anticoagulation Z79.01 Congestive heart failure I50.9 Anemia D64.9 Primary osteoarthritis of right hip M16.11 Chronic hypoxemic respiratory failure J96.11
[2024-11-20 23:29] LABS: Digoxin 1.6 ng/mL (0.6-1.2)
[2024-11-21] VITALS (21 sets, daily range): BP systolic 103–143; BP diastolic 60–80; PULSE 50–81; RESP 16–20; TEMP 36.3–36.9; O2SAT 91–100
[2024-11-21 00:02] LABS: Vitamin B12 393 pg/mL (232-1245)
[2024-11-21] MEDS: FUROsemide 10 mg/mL SDV 2mL 20 MG IVP ×2 (00:10→09:02)
[2024-11-21] MEDS: TRAMadol 50 mg Tablet PO ×2 (00:11→15:03)
[2024-11-21] MEDS: acetaminophen 500 mg Tablet PO ×2 (00:11→05:54)
[2024-11-21] MEDS: ipratropium-albuterol 3 mL Neb INHALATION ×4 (01:35→19:58)
[2024-11-21] MEDS: sodium chloride 0.9% 100 mL Bag 50 ML IV (03:27)
[2024-11-21 05:01] LABS: Basophils % 0.2 %; Hematocrit 28.7 % (37-53); INR 2.31 (0.8-1.2); Lymphocytes # 0.3 10^3/uL (0.8-4.8); Lymphocytes % 5.2 %; Mean Corpuscular HGB Conc 30.7 g/dL (30-55); Mean Corpuscular Hemoglobin 28.8 pg (27-33); Mean Corpuscular Volume 93.8 fl (82-101); Monocytes % 0.7 %; Neutrophils # 5.02 10^3/uL (1.8-7.7); Neutrophils % 93.3 %; Nucleated Red Blood Cells % 0 %; Platelet Count 239 10^3/cmm (157-399); Red Blood Count 3.06 10^6/uL (3.85-5.65); Red Cell Distribution Width 15.7 % (12.1-15.1); White Blood Count 5.38 10^3/uL (3.29-11.43)
[2024-11-21 05:20] LABS: Anion Gap 18.5 (5-19); Blood Urea Nitrogen 26 mg/dL (8-23); Calcium 8.4 mg/dL (8.5-10.5); Carbon Dioxide 24 mmol/L (22-29); Chloride 102 mmol/L (98-107); Creatinine Clr Calc Pharmacy 39.2481; Glucose 141 mg/dL (65-115); Magnesium 2.4 mg/dL (1.7-2.3); Osmolality Calculated 297 mOsm/kg (285-295); Potassium 4.5 mmol/L (3.5-5.1); Sodium 140 mmol/L (136-145)
[2024-11-21] MEDS: levothyroxine 100 mcg Tablet PO (05:54)
[2024-11-21] MEDS: budesonide 0.5 mg/2 mL Neb INHALATION ×2 (08:02→19:58)
[2024-11-21] MEDS: metoprolol succinate ER (24 HR) 25 mg Tablet 12.5 MG PO (08:49)
[2024-11-21] MEDS: amiodarone 200 mg Tablet PO (08:50)
[2024-11-21] MEDS: pantoprazole 40 mg SDV IVP ×2 (08:51→17:10)
--- NOTE | 2024-11-21 09:27 | PC.CHAP ---
Pastoral Care Encounter/Spiritual Assessment Type of Contact [] Declined electronic equipment installer visit [] Patient/Family/Request visit [] Outpatient visit [] Follow-up visit [] Physician referral [] Code/Alert [] Routine visit [] Staff referral [] Actively dying [] Patient sleeping [] Family support [] [] Out of room [] Palliative care [] [x] Receiving care in room [] Pre-surgical visit [] Trauma [] Long length of stay [] ICU visit [] Other: Relational/Emotional Strength [] Patient feels connected with others/family/visitors/staff [] Distress [] Loneliness/isolation [] Abandonment Spirituality of Patient [] Person of Jessie [] Attends Rastafarian of their Jessie [] Believes in Prayer [] Reads Bible or Presybeterian materials [] There are Spiritual issues to be addressed 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[employer] Interventions [] Prayer [] Active listening [] Non-anxious presence [] Spiritual/emotional support [] Crisis/trauma care [] Spiritual counseling [] Bereavement support [] Provided bereavement packet [] Provided Bible/devotional materials [] Provided toy/stuffed animal, coloring book to patient or family member [] Provided Communion [] Anointing/Clay [] Salvation [] Completed spiritual assessment [] Other: Impact on Illness or Injury [] Angry [] Fearful [] Anxious [] Often cries [] Exhaustion [] Unable to work [] Unable to attend presybeterian [] Unable to walk/stand [] Unable to read [] Unable to drive [] Unable to eat/drink [] Unable to sleep [] Unable to be with family [] Patient intubated [] Other: Summary Time spent with patient
--- NOTE | 2024-11-21 11:01 | P.PN_ITS ---
Subjective 2 Subjective: Patient reports some shortness of breath. States is worse with exertion. States that it is better than yesterday. He is posttransfusion with improvement in hemoglobin. He is volume up from the transfusion and at risk for worsening respiratory status from pulmonary edema. He denies any known blood loss. He does state that he was starting to become anemic even before this admission. He notes that his valve surgery was about 2 to 3 years ago. He is on warfarin and recently started the home INR monitoring process. He denies fevers, chills, nausea or emesis. Denies other new complaints. Medications: Reviewed: Yes Vitals/I&O/Wt Last Vital Signs Temp 97.8 F 11/21/24 03:51 Pulse 77 11/21/24 08:19 Resp 18 11/21/24 08:02 BP 143/80 11/21/24 07:00 Pulse Ox 98 11/21/24 08:02 O2 Del Method Nasal Cannula 11/21/24 08:02 O2 Flow Rate 2 11/21/24 08:02 11/20/24 11/21/24 11/21/24 22:59 06:59 14:59 Intake Total 0 / 0 1600 / 1600 120 / 120 Output Total 550 / 550 Balance 0 / 0 1050 / 1050 120 / 120 Weight last 48 hrs Weight 80.558 kg Weight 77.111 kg Weight 77.111 kg Physical Exam 2 Narrative: General: Patient is awake and alert. Pleasant. Conversational. Head: Normocephalic. Atraumatic. EOM intact. Neck: No JVD. Cardiovascular: Rhythm is somewhat irregular. Systolic and diastolic murmurs. No gallop. Lungs: Faint wheezing. Breath sounds are diminished at bases. No rales. On 2 L nasal cannula. Skin: No jaundice. No rashes. Abdomen: Normal bowel sounds, abdomen soft and nontender. Extremities: No cyanosis or clubbing. Musculoskeletal: No swollen or erythematous joints. Neurological: Moves all 4 extremities. No myoclonus. Data 11/21/24 03:45 11/21/24 03:45 A&P Assessment and plan (1) Anemia: Admission hemoglobin 6.9 status post 2 transfusions PRBCs now 8.8 Continue PPI Monitor for evidence of bleeding Repeat labs in a.m. (2) Congestive heart failure: Chronic congestive heart failure with reduced ejection fraction of 10 to 15% Very high risk for exacerbation in the setting of transfusion and extra volume, he is currently volume up Received IV Lasix this morning, patient reports good urinary output Strict I's and O's Daily weights Daily assessment of volume May need additional Lasix pending clinical course (3) History of mitral valve replacement: History of mitral valve replacement, appears to be bioprosthetic Continue warfarin for valve, we will request pharmacy to dose (4) Atrial fibrillation: Digoxin level elevated at 1.6 ng/mL, hold digoxin Repeat level tomorrow Continue home amiodarone, patient was on digoxin and amiodarone prior to admission Continue home metoprolol Telemetry monitoring (5) Chronic hypoxemic respiratory failure: Continue supplemental oxygen support at 2 L, monitoring for worsening respiratory status Plan DVT prophylaxis warfarin PDMP PDMP Reviewed: Not Reviewed Attestations 2 Medical Necessity Statement*: Patient requires ongoing hospitalization for serial blood draws, further IV diuresis, telemetry, and supportive care. Coding Level of Care Code Acute Code for [facility] Diagnoses Anemia D64.9 Congestive heart failure I50.9 History of mitral valve replacement Z95.2 Atrial fibrillation I48.91 Chronic hypoxemic respiratory failure J96.11
[2024-11-22] VITALS (10 sets, daily range): BP systolic 106–116; BP diastolic 64–78; PULSE 73–107; RESP 16–18; TEMP 35.7–36.6; O2SAT 93–100
[2024-11-22 05:27] LABS: Basophils % 0.1 %; Eosinophils % 0.1 %; Hematocrit 25.1 % (37-53); Lymphocytes # 0.7 10^3/uL (0.8-4.8); Lymphocytes % 8.2 %; Mean Corpuscular HGB Conc 31.1 g/dL (30-55); Mean Corpuscular Hemoglobin 28.8 pg (27-33); Mean Corpuscular Volume 92.6 fl (82-101); Monocytes # 0.9 10^3/uL (0.2-0.9); Monocytes % 10.3 %; Neutrophils % 80.8 %; Nucleated Red Blood Cells % 0 %; Platelet Count 217 10^3/cmm (157-399); Red Blood Count 2.71 10^6/uL (3.85-5.65); Red Cell Distribution Width 15.7 % (12.1-15.1); White Blood Count 8.78 10^3/uL (3.29-11.43)
[2024-11-22] MEDS: levothyroxine 100 mcg Tablet PO (05:41)
[2024-11-22 05:42] LABS: INR 2.28 (0.8-1.2)
[2024-11-22 05:50] LABS: Albumin Level 3.5 g/dL (3.5-5.2); Anion Gap 16.6 (5-19); Blood Urea Nitrogen 36 mg/dL (8-23); Calcium 8.4 mg/dL (8.5-10.5); Carbon Dioxide 25 mmol/L (22-29); Chloride 102 mmol/L (98-107); Creatinine Clr Calc Pharmacy 39.0829; Ferritin 48 ng/mL (30-400); Glucose 100 mg/dL (65-115); Iron 20 ug/dL (59-158); Magnesium 2.5 mg/dL (1.7-2.3); Percent Saturation 6.6 % (20-50); Phosphorus 3.8 mg/dL (2.5-4.5); Potassium 4.6 mmol/L (3.5-5.1); Sodium 139 mmol/L (136-145); Total Iron Binding Capacity 302 mcg/dl; Unsaturated Iron Binding 282 ug/dL (112-347)
[2024-11-22 05:51] LABS: Digoxin 1.3 ng/mL (0.6-1.2)
[2024-11-22] MEDS: ipratropium-albuterol 3 mL Neb INHALATION (08:05)
[2024-11-22] MEDS: budesonide 0.5 mg/2 mL Neb INHALATION (08:05)
[2024-11-22] MEDS: amiodarone 200 mg Tablet PO (08:26)
[2024-11-22] MEDS: magnesium oxide 400 mg tablet 200 MG PO (08:27)
[2024-11-22] MEDS: pantoprazole 40 mg SDV IVP (08:27)
[2024-11-22] MEDS: metoprolol succinate ER (24 HR) 25 mg Tablet 12.5 MG PO (08:27)
[2024-11-22] MEDS: FUROsemide 10 mg/mL SDV 4mL 40 MG IVP (10:04)
--- NOTE | 2024-11-22 12:48 | PM.DCS ---
Discharge Providers Date of Admission: 11/20/24 19:57 Date of Discharge: November 22, 2024 Attending Provider at Admission: Demetrice Garcia MD Attending Provider at Discharge: Mario Lam MD Primary Care Provider: Radha Jiang NP Diagnoses at Discharge Discharge Diagnosis (1) Anemia: Status: Acute (2) Congestive heart failure: Status: Acute (3) History of mitral valve replacement: Status: Acute (4) Atrial fibrillation: Status: Acute (5) Chronic hypoxemic respiratory failure: Status: Acute Reason for Visit Reason for Visit: SOB Hospital Course Hospital Course Memo Salazar is a 88 year old male with extremely heart failure with reduced status post pacemaker/AICD, chronic hypoxic respiratory failure, arthritis, atrial fibrillation, multiple other comorbidities who presented with generalized weakness and shortness of breath, found to have symptomatic anemia. He denied any known GI loss. Denies melena or evidence of GI bleed. He was cautiously transfused with packed red blood cells. He required Lasix with transfusion due to his severely low ejection fraction. Overall he tolerated treatment well. Hemoglobin responded appropriately. He was adamant to discharge home by the day of discharge. Patient discharged home in stable condition. He is to continue his warfarin due to his valve. Recommend repeat labs when he follow-up with his primary provider within 7 days. Physical Exam Narrative: General: Patient is awake and alert. No acute distress. Head: Normocephalic. Atraumatic. EOM intact. Neck: No JVD. Cardiovascular: Rhythm is somewhat irregular. Systolic and diastolic murmurs. No gallop. Lungs: Very faint wheeze. Breath sounds are diminished at bases. No rales. Skin: No jaundice. No rashes. Abdomen: Normal bowel sounds, abdomen soft and nontender. Extremities: No cyanosis or clubbing. Musculoskeletal: No swollen or erythematous joints. Neurological: Moves all 4 extremities. No myoclonus. Discharge Data Studies Completed and Pending Completed Studies During Hospitalization Category Date Time Status XR chest 1V portable [id number] Stat Exams 11/20/24 17:22 Completed Pending at discharge Category Date Time Status Occult Blood Stool [Immunochemical Fecal OCB] Routine Lab 11/20/24 22:43 Uncollected Prothrombin Time INR AM LABS Lab 11/23/24 04:00 Ordered Radiology Impressions Chest X-Ray 11/20/24 17:22 IMPRESSION: 1. No acute intrathoracic findings. 2. Severe cardiomegaly, stable. Laboratory Results WBC 8.78 10^3/uL (3.29-11.43) 11/22/24 04:43 RBC 2.71 10^6/uL (3.85-5.65) L 11/22/24 04:43 Hgb 7.80 g/dL (11.27-16.99) L 11/22/24 04:43 Hct 25.1 % (37-53) L 11/22/24 04:43 MCV 92.6 fl (82-101) 11/22/24 04:43 MCH 28.8 pg (27-33) 11/22/24 04:43 MCHC 31.1 g/dL (30-55) 11/22/24 04:43 RDW 15.7 % (12.1-15.1) H 11/22/24 04:43 Plt Count 217 10^3/cmm (157-399) 11/22/24 04:43 MPV 11.0 fL (7.4-10.4) H 11/22/24 04:43 Neut % (Auto) 80.8 % 11/22/24 04:43 Lymph % (Auto) 8.2 % 11/22/24 04:43 [place] % (Auto) 10.3 % 11/22/24 04:43 Eos % (Auto) 0.1 % 11/22/24 04:43 Baso % (Auto) 0.1 % 11/22/24 04:43 Neut # (Auto) 7.10 10^3/uL (1.8-7.7) 11/22/24 04:43 Lymph # (Auto) 0.7 10^3/uL (0.8-4.8) L 11/22/24 04:43 [place] # (Auto) 0.9 10^3/uL (0.2-0.9) 11/22/24 04:43 Eos # (Auto) 0.0 10^3/uL (0.0-0.8) 11/22/24 04:43 Baso # (Auto) 0.0 10^3/uL (0.0-0.1) 11/22/24 04:43 Nucleated RBC % (auto) 0 % 11/22/24 04:43 Nucleated RBCs # 0.0 /100WBC 11/22/24 04:43 PT 26.40 SECONDS (12.1-14.9) H 11/22/24 04:43 INR 2.28 (0.8-1.2) H 11/22/24 04:43 Specimen Type Arterial 11/20/24 17:22 Sample Site Radial, left 11/20/24 17:22 ABG pH 7.43 (7.35-7.45) 11/20/24 17:22 ABG pCO2 41.2 mmHg (35-45) 11/20/24 17:22 ABG pO2 81.2 mmHg (80.0-100.0) 11/20/24 17:22 ABG HCO3 27.0 mmol/L (22-26) H 11/20/24 17:22 ABG O2 Saturation 97.6 11/20/24 17:22 ABG Base Excess 2.4 mmol/L (-2.0-2.0) H 11/20/24 17:22 Lazaro Test Pos 11/20/24 17:22 A-a O2 Gradient 2.1 mmHg (5-10) L 11/20/24 17:22 Hematocrit 21.8 % (42-52) L 11/20/24 17:22 Hgb O2 Saturation 95.0 % (95-100) 11/20/24 17:22 Carboxyhemoglobin 1.4 %THgb (0.4-20.1) 11/20/24 17:22 Methemoglobin 1.2 % (0.4-1.5) 11/20/24 17:22 Total Hemoglobin 7.1 g/dL (14-18) L 11/20/24 17:22 Sodium 139.0 mmol/L (131-143) 11/20/24 17:22 Potassium 4.3 mmol/L (3.5-5.0) 11/20/24 17:22 Glucose 110.0 mg/dL (70-115) 11/20/24 17:22 Ionized Calcium 1.1 mmol/L (1.1-1.4) 11/20/24 17:22 O2 Delivery Device Nc 11/20/24 17:22 O2 Liters/Min 2.0 % 11/20/24 17:22 Vending Supervisor ID [employer] 11/20/24 17:22 Sodium 139 mmol/L (136-145) 11/22/24 04:43 Potassium 4.6 mmol/L (3.5-5.1) 11/22/24 04:43 Chloride 102 mmol/L (98-107) 11/22/24 04:43 Carbon Dioxide 25 mmol/L (22-29) 11/22/24 04:43 Anion Gap 16.6 (5-19) 11/22/24 04:43 BUN 36 mg/dL (8-23) H 11/22/24 04:43 Creatinine 1.4 mg/dL (0.7-1.2) H 11/22/24 04:43 GFR Calculation Not Reportable 11/22/24 04:43 Glucose 100 mg/dL (65-115) 11/22/24 04:43 Calculated Osmolality 297 mOsm/kg (285-295) H 11/21/24 03:45 Calcium 8.4 mg/dL (8.5-10.5) L 11/22/24 04:43 Phosphorus 3.8 mg/dL (2.5-4.5) 11/22/24 04:43 Magnesium 2.5 mg/dL (1.7-2.3) H 11/22/24 04:43 Iron 20 ug/dL (59-158) L 11/22/24 04:43 TIBC 302 mcg/dl 11/22/24 04:43 % Saturation 6.6 % (20-50) L 11/22/24 04:43 Unsat Iron Binding 282 ug/dL (112-347) 11/22/24 04:43 Ferritin 48 ng/mL (30-400) 11/22/24 04:43 Total Bilirubin 0.8 mg/dL (0.15-1.2) 11/20/24 17:38 AST 15 U/L (0-40) 11/20/24 17:38 ALT 10 U/L (0-41) 11/20/24 17:38 Alkaline Phosphatase 77 U/L (40-130) 11/20/24 17:38 NT-Pro-B Natriuret Pep 5366 pg/mL (0-450) H 11/20/24 17:38 Total Protein 6.6 g/dL (6.6-8.7) 11/20/24 17:38 Albumin 3.5 g/dL (3.5-5.2) 11/22/24 04:43 Globulin 2.7 g/dL (1.3-4.6) 11/20/24 17:38 Vitamin B12 393 pg/mL (232-1245) 11/20/24 17:38 Procalcitonin 0.03 ng/mL (0-0.5) 11/20/24 17:38 Digoxin 1.3 ng/mL (0.6-1.2) H 11/22/24 04:43 Influenza A (PCR) Negative (Negative) 11/20/24 18:17 Influenza Type B (PCR) Negative (Negative) 11/20/24 18:17 RSV (PCR) Negative (Negative) 11/20/24 18:17 SARS-CoV-2 (PCR) Negative (Negative) 11/20/24 18:17 Blood Type O Positive 11/20/24 19:02 Rho(D) Type Rh positive 11/20/24 19:02 Antibody Screen Negative 11/20/24 19:02 Crossmatch See Detail 11/20/24 19:02 Vitals Last Vital Signs Temp 96.2 F L 11/22/24 11:40 Pulse 76 11/22/24 11:40 Resp 18 11/22/24 11:40 BP 110/69 11/22/24 11:40 Pulse Ox 100 11/22/24 11:25 O2 Del Method Nasal Cannula 11/22/24 11:24 O2 Flow Rate 2 11/22/24 11:24 Discharge Plan Discharge Patient Disposition: Home Condition: Stable Prescriptions: New ferrous sulfate 324 mg (65 mg iron) tablet,delayed release (DR/EC) 324 mg PO DAILY Qty: 30 0RF Continued lovastatin 40 mg tablet 40 mg PO DAILY amiodarone 200 mg tablet See Rx Instructions .ROUTE .COMPLEX Rx Instructions: 200 mg orally TUESDAY THROUGH TUESDAY metoprolol succinate 25 mg tablet extended release 24 hr 12.5 mg PO DAILY levothyroxine 100 mcg tablet 100 mcg PO DAILY magnesium 250 mg Tablet 250 mg PO DAILY warfarin 5 mg tablet See Rx Instructions .ROUTE .COMPLEX Qty: 60 0RF Rx Instructions: 5MG PO AT NIGHT ON TUE through TUE 2.5MG PO AT NIGHT ON SAT AND SUN digoxin 125 mcg (0.125 mg) tablet 125 mcg PO EVERY OTHER DAY 30 Days Qty: 15 0RF tramadol 50 mg tablet 50 mg PO QAM PRN (Reason: pain) 7 Days Qty: 7 0RF potassium chloride 10 mEq tablet extended release 10 meq PO BID Changed omeprazole 40 mg capsule,delayed release(DR/EC) 40 mg PO BID 30 Days Qty: 60 0RF Discharge Orders: Discharge Order (Routine); Ordered 11/22/24 Ordered By: Mario Lam Referrals: Radha Jiang GUEST SERVICES DIRECTOR [Primary Care Provider] - 11/29/24 8:30 am Discharge Diet: Advance as tolerated and Usual diet Discharge Activity: Resume usual activity and Increase activity as tolerated Patient Instructions: Iron Supplements (By mouth), Anemia (GEN), CHF Stoplight, Opioid Safety Activity Restrictions/Additional Instructions: 1. Follow up with PCP within one week. Recommend repeating labs at that time to assess hemoglobin level. 2. Take medications as prescribed. 3. Resume warfarin dose and management per ordering provider. Recommend close follow up to discuss if alternative treatment is an option. 4. Increase activity as tolerated. Discharge Attestations Time Spent in Discharge Care*: greater than 30 min Quality Metrics Clinical Quality Measures [ No reported AMI, CVA or VTE this stay] Coding Level of Care Code Acute Code for Chg Fwd Diagnoses Anemia D64.9 Congestive heart failure I50.9 History of mitral valve replacement Z95.2 Atrial fibrillation I48.91 Chronic hypoxemic respiratory failure J96.11
== END 2024-11-22 15:25 | disposition home or self-care (01) | DRG 811 ==
LOC: ER 20:02 → MEDSURG 21:01
PROVIDERS: Family Medicine; Admitting Provider Internal Medicine; Emergency Provider Emergency Medicine; PCP Nurse Practitioner Family; Visit Provider Internal Medicine
DX: D64.9 Anemia, unspecified (principal); I50.23 Acute on chronic systolic (congestive) heart failure; J96.11 Chronic respiratory failure with hypoxia; I48.91 Unspecified atrial fibrillation; Z66 Do not resuscitate; E03.9 Hypothyroidism, unspecified; Z79.01 Long term (current) use of anticoagulants; Z95.2 Presence of prosthetic heart valve; Z95.0 Presence of cardiac pacemaker
CPT/HCPCS: 36415; 36430; 36600; 71045; 80048; 80051; 80053; 80069; 80162; 82330; 82607; 82728; 82805; 83540; 83550; 83735; 83880; 84145; 85014; 85018; 85025; 85610; 86850; 86900; 86920; 87637; 93005; 94640; 96374; 99285; J1100; J1940; J2470; J7626; P9016